=== PATIENT | female | born 1965 | race Caucasian/White ===

== ENCOUNTER 2021-09-11 12:52 | Outpatient (CLI) | payer BC, SELFPAY ==
--- NOTE | 2021-09-11 13:15 | CRLHL7_ITS ---
For Patients: As a result of the Century Cures Act, medical imaging exams and procedure reports are released immediately into your electronic medical record. You may view this report before your referring provider. If you have questions, please contact your health care provider. INDICATION: 56 year-old female. Remote history of Hodgkin disease diagnosed in 1978. Subsequent splenectomy and mantle radiation therapy. Left-sided breast cancer in 2000 with subsequent recurrence in the left axilla in 2009 and a more recent recurrence in 2020. Prior left-sided mastectomy and sentinel lymph node biopsy and prophylactic right-sided mastectomy in 2000. Adjuvant chemotherapy and tamoxifen therapy. Left axillary tony dissection in 2009. Chemotherapy. Prior history of a well differentiated thyroid carcinoma status post thyroidectomy. Diffuse large B-cell lymphoma diagnosed March 2017 with chemotherapy March 2017 through July 2017 currently on surveillance. Recent core biopsy of a right axillary lymph node demonstrated metastatic carcinoma consistent with a breast primary. More recent history of proton therapy February 10, 2021 through March 18, 2021. Chest wall reconstruction April 22, 2021. Hyperbaric oxygen therapy for wound healing. Follow-up. Restaging. TECHNIQUE: 11.55 mCi 18 FDG (18 xetdcn-bt-oqs-glucose) injected intravenously. Imaging performed from the mid forehead to the mid thighs [address] performed for anatomic correlation and attenuation correction. Pre scan glucose: 80 mg/dL. COMPARISON: PET/CT scan December 05, 2020. Correlation is made with a more recent chest CT July 22, 2021. FINDINGS: Physiologic activity is identified in the brain, salivary glands, tongue, paralaryngeal soft tissues, myocardium, GI, and tract. The included intracranial structures and included soft tissues of the head, face, and neck are within normal limits. Mild asymmetric muscular activity posterior to the cervical spine right greater than left. No metabolically active cervical lymphadenopathy. Surgically absent thyroid gland. Within the chest, when compared to the prior PET scan there has been surgical removal of the breast implants/reconstruction. There is curvilinear and nodular activity within the anterior left chest wall surrounding an elliptically shaped fluid collection. For example a small nodular focus medially demonstrates an SUV max of nearly 7.0 and laterally a curvilinear focus demonstrates an SUV max of 7.2 and along the inferior margin likely within chest wall musculature is curvilinear activity with an SUV max of 6.1. All this activity may be post treatment in nature. Minor low level activity associate with the right anterior chest wall. No discrete metabolically active axillary, supraclavicular, internal mammary chain, or hilar/mediastinal lymphadenopathy. There is a new tiny left-sided pleural effusion with low level activity, SUV max 2.0, likely reactive potentially post treatment in nature. A previously identified metabolically active nodule within the posteromedial left upper lobe of the lung and right lower lobe of the lung are not evident today. The abdomen and pelvis are within normal limits. No abnormal activity within solid abdominal organs are lymph node groups. The soft tissues included thighs demonstrates muscular type activity about the greater trochanters. The included skeleton demonstrates mild muscular and/or arthritic type activity about the shoulders right greater than left. CT Findings: Surgically absent thyroid gland, breasts, and spleen. Interval removal of the breast reconstruction. Postsurgical changes anterior chest sebastian extending into the axillary spaces with a small seroma or hematoma in the right axillary space, measuring 1.8 x 3.0 cm. Elliptically shaped fluid collection anterior left chest wall. Tiny left-sided pleural effusion. Granulomatous changes within the right lung. No hydronephrosis. Vascular calcification within a normal caliber abdominal aorta. Degenerative disc disease particularly involving L4 and L5. IMPRESSION: 1. Curvilinear and nodular high-level activity left anterior chest wall surrounding an elliptically shaped seroma or hematoma, most likely related to interval therapy and prior surgery. Intermediate to low level activity associated the skin and subcutaneous soft tissues of each chest wall and also within the axillary spaces, again likely related to treated. 2. New tiny left-sided pleural effusion likely reactive. 3. Resolution of the 2 nodular foci of activity seen previously in the left upper lobe and right lower lobe. 4. No evidence for metastatic disease within the lymph node groups, the remaining solid abdominal organs or included skeleton. Dictated by Lavon Calderón MD @ 09/19/2021 9:07:59 AM (Electronically Signed)
== END 2021-09-11 12:53 | disposition home or self-care (01) ==
LOC: RAD 12:53
PROVIDERS: PCP Family Medicine; Visit Provider Internal Medicine Hematology & Oncology
DX: C50.412 Malignant neoplasm of upper-outer quadrant of left female breast (principal); J90 Pleural effusion, not elsewhere classified; R91.8 Other nonspecific abnormal finding of lung field
CPT/HCPCS: 78815; A9552

== ENCOUNTER 2021-10-01 07:44 | Outpatient (RCR) | payer BC, SELFPAY ==
--- NOTE | 2021-09-03 14:37 | URNOTE ---
Request received from [facility] for prior authorization of Prolia [id number]. Patient carries [employer] as primary insurance. Per [employer] no prior authorization is required for Prolia. Services are based on medical necesity.
[2021-10-01 08:08] LABS: Basophils Absolute Auto 0.06 K/uL (0.00-0.30); Basophils Percent Auto 0.7 % (0.0-3.0); Eosinophils Absolute Auto 0.26 K/uL (0.00-0.50); Hematocrit 39.6 % (33.0-51.0); Hemoglobin* 12.7 gm/dL (12.0-16.0); Immature Granulocytes Abs Auto 0.01 K/uL (0.00-0.30); Lymphocytes Absolute Auto 1.77 K/uL (0.90-2.90); Lymphocytes Percent Auto 20.3 % (20-44); Mean Corpuscular HGB Conc 32 gm/dL (32-36); Mean Corpuscular Hemoglobin 27 pg (26-34); Mean Corpuscular Volume 84 fL (80-100); Monocytes Percent Auto 10.3 % (0.0-11.0); Neutrophils Absolute Auto 5.74 K/uL (1.7-7.0); Neutrophils Percent Auto 65.6 % (42.0-72.0); Platelet Count* 577 K/uL (140-440); RDW Coefficient of Variation % 15.8 % (11.5-15.5); White Blood Count* 8.74 K/uL (4.50-11.00)
[2021-10-01 08:20] LABS: Albumin* 4.2 g/dL (3.3-5.0); Chloride* 101 mmol/L (96-114); Potassium* 4.5 mmol/L (3.6-5.1); Slide Review Reflex No; Sodium* 140 mmol/L (135-149)
[2021-10-01 08:22] LABS: Carbon Dioxide* 31 mmol/L (20-32); Est. Creatinine Clearance* 65.65; Estimated Glomerular Filt Rate 66 ml/min
[2021-10-01 08:23] LABS: Alanine Aminotransferase* 32 U/L (4-35); Alkaline Phosphatase* 157 U/L (40-150); Aspartate Amino Transferase* 34 U/L (12-35); Bilirubin Total* 0.5 mg/dL (0.1-1.5); Blood Urea Nitrogen* 30 mg/dL (7-30); Calcium* 9.6 mg/dL (8.4-10.6); Glucose* 112 mg/dL (60-115); Total Protein* 8.2 g/dL (6.0-8.3)
== END 2021-10-05 23:59 | disposition home or self-care (01) ==
LOC: CCIC 07:44
PROVIDERS: PCP Family Medicine; Visit Provider Internal Medicine Hematology & Oncology
DX: C50.911 Malignant neoplasm of unspecified site of right female breast (principal); C83.33 Diffuse large B-cell lymphoma, intra-abdominal lymph nodes
CPT/HCPCS: 36415; 80053; 85025

== ENCOUNTER 2022-02-12 13:30 | Outpatient (CLI) | payer BC, SELFPAY ==
--- NOTE | 2022-02-12 14:00 | CRLHL7_ITS ---
For Patients: As a result of the Century Cures Act, medical imaging exams and procedure reports are released immediately into your electronic medical record. You may view this report before your referring provider. If you have questions, please contact your health care provider. INDICATION: History of left-sided breast cancer diagnosed in 2000. Patient with recurrence in the left axilla 2009 and more recently 2020. History of bilateral mastectomy. Patient with prior chemotherapy and tamoxifen therapy. Study is being performed for restaging. Remote history of prior lymphoma status post splenectomy. Patient with prior thyroidectomy. TECHNIQUE: Patient received 9.6 millicuries of 18 FDG (18 fluorodeoxyglucose) intravenously. PET-CT imaging has been performed from the mid skull to mid thigh level at [address] images have been obtained for attenuation correction and localization only. Blood glucose level: 83 mg/dL. COMPARISON: PET-CT dated 09/11/2021 PET-CT dated 12/05/2020. FINDINGS: No abnormal uptake is identified in the mediastinum or hilar regions. Patient status post thyroidectomy. Small left residual pleural fluid collection is identified which is relatively stable without significant abnormal pleural activity. The lungs demonstrate no significant abnormal uptake. There is a persistent linear density in the inferior right middle lobe extending toward the pleural without abnormal uptake. This is stable and likely benign. Small associated calcification is noted. There is mild peripheral anterior apical scarring identified and unchanged. Again identified are postsurgical changes from removal of bilateral breast implants. There is chest wall and intercostal activity which is slightly greater on the left than the right. This overall has diminished especially on the left compared to the prior study. There is prominent muscular activity in the upper chest anteriorly. There are postsurgical change of the bilateral axilla without focal hypermetabolic lymph nodes. The neck demonstrates salivary and oropharyngeal activity, felt to be physiologic. No suspicious hypermetabolic lymph nodes noted. Skullbase is unremarkable. The liver demonstrates no abnormal uptake. The spleen is surgically absent. The pancreas and bilateral adrenal glands demonstrate no abnormal uptake. The retrocrural region and retroperitoneum demonstrate no abnormal uptake. The iliac tony chain and groin demonstrate no significant abnormal uptake. There is physiologic bowel activity demonstrated. No suspicious skeletal lesion noted. Heterogeneous marrow is noted and stable. Sclerosis of the lower lumbar spine is present and stable without significant abnormal uptake. IMPRESSION: 1. Overall relatively stable appearing PET-CT scan from the study of 09/11/2021. 2. Postsurgical change from movable bilateral breast implants noted. There has been further decrease in uptake of radiotracer especially on the left. There is slight increase in intercostal activity on today`s exam bilaterally, likely benign. 3. No suspicious hypermetabolic regional lymph nodes are seen. 4. No evidence for metastatic disease to the abdomen or pelvis. 5. Other PET-CT findings as detailed above. Dictated by Daniel Paz MD @ 02/18/2022 8:36:35 AM (Electronically Signed)
== END 2022-02-12 13:31 | disposition home or self-care (01) ==
LOC: RAD 13:30
PROVIDERS: PCP Family Medicine; Visit Provider Internal Medicine Hematology & Oncology
DX: C50.412 Malignant neoplasm of upper-outer quadrant of left female breast (principal)
CPT/HCPCS: 78815; A9552

== ENCOUNTER 2022-03-24 07:45 | Outpatient (RCR) | payer BC, SELFPAY ==
[2021-10-08 08:10] LABS: Basophils Absolute Auto 0.08 K/uL (0.00-0.30); Basophils Percent Auto 1.2 % (0.0-3.0); Eosinophils Absolute Auto 0.28 K/uL (0.00-0.50); Eosinophils Percent Auto 4.3 % (0.0-7.0); Hematocrit 40.9 % (33.0-51.0); Immature Granulocytes Abs Auto 0.01 K/uL (0.00-0.30); Lymphocytes Absolute Auto 1.49 K/uL (0.90-2.90); Lymphocytes Percent Auto 22.7 % (20-44); Mean Corpuscular HGB Conc 32 gm/dL (32-36); Mean Corpuscular Hemoglobin 27 pg (26-34); Mean Corpuscular Volume 85 fL (80-100); Monocytes Percent Auto 5.9 % (0.0-11.0); Neutrophils Absolute Auto 4.32 K/uL (1.7-7.0); Neutrophils Percent Auto 65.7 % (42.0-72.0); Platelet Count* 527 K/uL (140-440); RDW Coefficient of Variation % 15.7 % (11.5-15.5); Red Blood Count 4.83 m/uL (4.00-5.20); White Blood Count* 6.57 K/uL (4.50-11.00)
[2021-10-08 08:13] LABS: Slide Review Reflex No
[2021-10-08 08:30] VITALS: BP 82/52; PULSE 90; RESP 18; TEMP 36.4; O2SAT 99
[2021-10-08 08:32] VITALS: BP 96/59; PULSE 91
[2021-10-08 08:34] LABS: Albumin* 4.6 g/dL (3.3-5.0); Chloride* 100 mmol/L (96-114)
[2021-10-08 08:35] LABS: Potassium* 3.8 mmol/L (3.6-5.1); Sodium* 139 mmol/L (135-149)
[2021-10-08 08:37] LABS: Alanine Aminotransferase* 34 U/L (4-35); Alkaline Phosphatase* 136 U/L (40-150); Aspartate Amino Transferase* 34 U/L (12-35); Blood Urea Nitrogen* 41 mg/dL (7-30); Carbon Dioxide* 28 mmol/L (20-32); Creatinine* 1.6 mg/dL (0.5-1.5); Estimated Glomerular Filt Rate 38 ml/min
[2021-10-08 08:38] LABS: Calcium* 10.3 mg/dL (8.4-10.6); Glucose* 52 mg/dL (60-115)
[2021-10-08] MEDS: 0.9 % SODIUM CHLORIDE 1000 ml 1,000 ML IV (09:11)
[2021-10-08 10:36] VITALS: BP 129/76; PULSE 70
--- NOTE | 2021-10-08 12:34 | ONC.NURNOTE ---
Blood sugar 56 after IVF and one glass of orange juice. Pt asymptomatic. Notified Eliana Guevara APRN and pt okay to discharge home after another orange juice with sugar. Pt expecting a call back from her primary care and she will update Dr. Merino with blood sugars as well as blood pressure.
[2021-10-15 08:00] VITALS: BP 151/81; PULSE 103; RESP 14; TEMP 36.1; O2SAT 100
[2021-10-15 08:05] VITALS: BP 127/78; PULSE 114
[2021-10-15 08:13] LABS: Basophils Absolute Auto 0.06 K/uL (0.00-0.30); Eosinophils Percent Auto 3.3 % (0.0-7.0); Hematocrit 38.3 % (33.0-51.0); Hemoglobin* 12.3 gm/dL (12.0-16.0); Immature Granulocytes Abs Auto 0.01 K/uL (0.00-0.30); Lymphocytes Absolute Auto 1.66 K/uL (0.90-2.90); Lymphocytes Percent Auto 27.1 % (20-44); Mean Corpuscular HGB Conc 32 gm/dL (32-36); Mean Corpuscular Hemoglobin 27 pg (26-34); Mean Corpuscular Volume 84 fL (80-100); Monocytes Percent Auto 8.2 % (0.0-11.0); Neutrophils Percent Auto 60.2 % (42.0-72.0); Platelet Count* 385 K/uL (140-440); RDW Coefficient of Variation % 15.8 % (11.5-15.5); Red Blood Count 4.55 m/uL (4.00-5.20); White Blood Count* 6.13 K/uL (4.50-11.00)
[2021-10-15 08:16] LABS: Slide Review Reflex No
[2021-10-15 08:25] LABS: Albumin* 4.3 g/dL (3.3-5.0); Chloride* 100 mmol/L (96-114)
[2021-10-15 08:26] LABS: Potassium* 4.1 mmol/L (3.6-5.1); Sodium* 138 mmol/L (135-149)
[2021-10-15 08:28] LABS: Aspartate Amino Transferase* 31 U/L (12-35); Bilirubin Total* 0.7 mg/dL (0.1-1.5); Carbon Dioxide* 29 mmol/L (20-32); Creatinine* 1.2 mg/dL (0.5-1.5); Estimated Glomerular Filt Rate 53 ml/min
[2021-10-15 08:29] LABS: Alanine Aminotransferase* 26 U/L (4-35); Alkaline Phosphatase* 129 U/L (40-150); Blood Urea Nitrogen* 19 mg/dL (7-30); Calcium* 9.6 mg/dL (8.4-10.6); Glucose* 75 mg/dL (60-115); Total Protein* 8.1 g/dL (6.0-8.3)
--- NOTE | 2021-10-15 09:07 | ONC.NURNOTE ---
Patient states is feeling much better then last week. denies diarrhea or dizziness. states taking in enough po and voiding well. states seeing DR. Merino this am re; her blood pressure. copy of labs and orthostatics sent with pt. pt states bp was low and was taken off metoprolol 50mg bid.
[2021-10-29 08:10] LABS: Basophils Absolute Auto 0.09 K/uL (0.00-0.30); Basophils Percent Auto 1.8 % (0.0-3.0); Eosinophils Absolute Auto 0.14 K/uL (0.00-0.50); Eosinophils Percent Auto 2.8 % (0.0-7.0); Hematocrit 37.4 % (33.0-51.0); Immature Granulocytes Abs Auto 0.01 K/uL (0.00-0.30); Lymphocytes Absolute Auto 1.59 K/uL (0.90-2.90); Lymphocytes Percent Auto 32.3 % (20-44); Mean Corpuscular HGB Conc 32 gm/dL (32-36); Mean Corpuscular Hemoglobin 28 pg (26-34); Mean Corpuscular Volume 86 fL (80-100); Monocytes Percent Auto 9.7 % (0.0-11.0); Neutrophils Absolute Auto 2.62 K/uL (1.7-7.0); Neutrophils Percent Auto 53.2 % (42.0-72.0); Platelet Count* 536 K/uL (140-440); RDW Coefficient of Variation % 16.9 % (11.5-15.5); Red Blood Count 4.37 m/uL (4.00-5.20); White Blood Count* 4.93 K/uL (4.50-11.00)
[2021-10-29 08:12] LABS: Slide Review Reflex No
[2021-10-29 08:30] LABS: Albumin* 4.1 g/dL (3.3-5.0); Chloride* 99 mmol/L (96-114)
[2021-10-29 08:31] LABS: Potassium* 4.5 mmol/L (3.6-5.1); Sodium* 138 mmol/L (135-149)
[2021-10-29 08:33] LABS: Alanine Aminotransferase* 27 U/L (4-35); Alkaline Phosphatase* 139 U/L (40-150); Aspartate Amino Transferase* 31 U/L (12-35); Bilirubin Total* 0.5 mg/dL (0.1-1.5); Blood Urea Nitrogen* 28 mg/dL (7-30); Carbon Dioxide* 32 mmol/L (20-32); Creatinine* 1.3 mg/dL (0.5-1.5); Estimated Glomerular Filt Rate 48 ml/min; Glucose* 63 mg/dL (60-115); Total Protein* 7.9 g/dL (6.0-8.3)
[2021-10-29 08:34] LABS: Calcium* 9.4 mg/dL (8.4-10.6)
[2021-11-12 08:08] LABS: Basophils Absolute Auto 0.15 K/uL (0.00-0.30); Basophils Percent Auto 2.3 % (0.0-3.0); Eosinophils Percent Auto 1.5 % (0.0-7.0); Hematocrit 40.4 % (33.0-51.0); Hemoglobin* 12.7 gm/dL (12.0-16.0); Immature Granulocytes Abs Auto 0.01 K/uL (0.00-0.30); Lymphocytes Absolute Auto 1.74 K/uL (0.90-2.90); Lymphocytes Percent Auto 26.4 % (20-44); Mean Corpuscular HGB Conc 31 gm/dL (32-36); Mean Corpuscular Hemoglobin 28 pg (26-34); Mean Corpuscular Volume 88 fL (80-100); Monocytes Percent Auto 7.7 % (0.0-11.0); Neutrophils Absolute Auto 4.09 K/uL (1.7-7.0); Neutrophils Percent Auto 61.9 % (42.0-72.0); Platelet Count* 505 K/uL (140-440); RDW Coefficient of Variation % 17.8 % (11.5-15.5); Red Blood Count 4.61 m/uL (4.00-5.20)
[2021-11-12 08:20] LABS: Slide Review Reflex No
[2021-11-12 08:23] LABS: Albumin* 4.4 g/dL (3.3-5.0); Chloride* 101 mmol/L (96-114); Potassium* 3.9 mmol/L (3.6-5.1); Sodium* 141 mmol/L (135-149)
[2021-11-12 08:25] LABS: Bilirubin Total* 0.7 mg/dL (0.1-1.5); Creatinine* 1.3 mg/dL (0.5-1.5); Estimated Glomerular Filt Rate 48 ml/min
[2021-11-12 08:26] LABS: Alanine Aminotransferase* 25 U/L (4-35); Alkaline Phosphatase* 141 U/L (40-150); Aspartate Amino Transferase* 29 U/L (12-35); Blood Urea Nitrogen* 24 mg/dL (7-30); Calcium* 9.5 mg/dL (8.4-10.6); Carbon Dioxide* 29 mmol/L (20-32); Glucose* 63 mg/dL (60-115); Total Protein* 8.4 g/dL (6.0-8.3)
[2021-11-26 08:17] LABS: Basophils Absolute Auto 0.12 K/uL (0.00-0.30); Basophils Percent Auto 2.1 % (0.0-3.0); Eosinophils Absolute Auto 0.12 K/uL (0.00-0.50); Eosinophils Percent Auto 2.1 % (0.0-7.0); Hematocrit 39.8 % (33.0-51.0); Hemoglobin* 12.9 gm/dL (12.0-16.0); Immature Granulocytes Abs Auto 0.01 K/uL (0.00-0.30); Lymphocytes Absolute Auto 1.59 K/uL (0.90-2.90); Lymphocytes Percent Auto 27.5 % (20-44); Mean Corpuscular HGB Conc 32 gm/dL (32-36); Mean Corpuscular Hemoglobin 29 pg (26-34); Mean Corpuscular Volume 88 fL (80-100); Monocytes Percent Auto 8.8 % (0.0-11.0); Neutrophils Absolute Auto 3.44 K/uL (1.7-7.0); Neutrophils Percent Auto 59.3 % (42.0-72.0); Platelet Count* 383 K/uL (140-440); RDW Coefficient of Variation % 18.4 % (11.5-15.5); White Blood Count* 5.79 K/uL (4.50-11.00)
[2021-11-26 08:18] LABS: Slide Review Reflex No
[2021-11-26 08:21] LABS: Albumin* 4.5 g/dL (3.3-5.0); Chloride* 98 mmol/L (96-114); Potassium* 4.1 mmol/L (3.6-5.1); Sodium* 140 mmol/L (135-149)
[2021-11-26 08:23] LABS: Bilirubin Total* 0.8 mg/dL (0.1-1.5); Carbon Dioxide* 31 mmol/L (20-32); Creatinine* 1.3 mg/dL (0.5-1.5); Estimated Glomerular Filt Rate 48 ml/min
[2021-11-26 08:24] LABS: Alanine Aminotransferase* 25 U/L (4-35); Alkaline Phosphatase* 149 U/L (40-150); Aspartate Amino Transferase* 40 U/L (12-35); Blood Urea Nitrogen* 29 mg/dL (7-30); Calcium* 9.9 mg/dL (8.4-10.6); Glucose* 72 mg/dL (60-115); Total Protein* 8.4 g/dL (6.0-8.3)
[2021-12-24 08:20] LABS: Basophils Absolute Auto 0.14 K/uL (0.00-0.30); Basophils Percent Auto 1.6 % (0.0-3.0); Eosinophils Absolute Auto 0.18 K/uL (0.00-0.50); Eosinophils Percent Auto 2.1 % (0.0-7.0); Hematocrit 36.4 % (33.0-51.0); Hemoglobin* 11.7 gm/dL (12.0-16.0); Immature Granulocytes Abs Auto 0.01 K/uL (0.00-0.30); Lymphocytes Absolute Auto 2.05 K/uL (0.90-2.90); Lymphocytes Percent Auto 23.4 % (20-44); Mean Corpuscular HGB Conc 32 gm/dL (32-36); Mean Corpuscular Hemoglobin 29 pg (26-34); Mean Corpuscular Volume 91 fL (80-100); Monocytes Percent Auto 8.7 % (0.0-11.0); Neutrophils Absolute Auto 5.63 K/uL (1.7-7.0); Neutrophils Percent Auto 64.1 % (42.0-72.0); Platelet Count* 488 K/uL (140-440); RDW Coefficient of Variation % 19.1 % (11.5-15.5); Red Blood Count 4.01 m/uL (4.00-5.20); White Blood Count* 8.77 K/uL (4.50-11.00)
[2021-12-24 08:30] LABS: Slide Review Reflex No
[2021-12-24 08:37] LABS: Albumin* 4.3 g/dL (3.3-5.0)
[2021-12-24 08:38] LABS: Chloride* 99 mmol/L (96-114); Potassium* 4.3 mmol/L (3.6-5.1); Sodium* 138 mmol/L (135-149)
[2021-12-24 08:40] LABS: Aspartate Amino Transferase* 36 U/L (12-35); Bilirubin Total* 0.9 mg/dL (0.1-1.5); Carbon Dioxide* 31 mmol/L (20-32); Creatinine* 1.2 mg/dL (0.5-1.5); Estimated Glomerular Filt Rate 53 ml/min; Total Protein* 7.9 g/dL (6.0-8.3)
[2021-12-24 08:41] LABS: Alanine Aminotransferase* 29 U/L (4-35); Alkaline Phosphatase* 135 U/L (40-150); Blood Urea Nitrogen* 26 mg/dL (7-30); Calcium* 9.9 mg/dL (8.4-10.6); Glucose* 86 mg/dL (60-115)
--- NOTE | 2022-01-02 10:27 | A.ONCPRONO_ITS ---
[facility] Provider Note Clinic Note Narrative: Refill request: letrozole Ms. Cox follows at our clinic with Dr. Mikayla Han, [facility], for medical management of recurrent hormone receptor positive breast cancer and B Cell Lymphoma. She is next due to be seen in clinic in 01/27. She has been tolerating therapy per office notes. Script refilled to pharmacy on file.
[2022-01-21 08:42] LABS: Basophils Absolute Auto 0.12 K/uL (0.00-0.30); Basophils Percent Auto 1.1 % (0.0-3.0); Eosinophils Absolute Auto 0.13 K/uL (0.00-0.50); Eosinophils Percent Auto 1.2 % (0.0-7.0); Hemoglobin* 11.7 gm/dL (12.0-16.0); Immature Granulocytes Abs Auto 0.02 K/uL (0.00-0.30); Immature Granulocytes Pct Auto 0.2 %; Lymphocytes Percent Auto 17.8 % (20-44); Mean Corpuscular HGB Conc 32 gm/dL (32-36); Mean Corpuscular Hemoglobin 31 pg (26-34); Mean Corpuscular Volume 96 fL (80-100); Monocytes Percent Auto 8.8 % (0.0-11.0); Neutrophils Absolute Auto 7.72 K/uL (1.7-7.0); Neutrophils Percent Auto 70.9 % (42.0-72.0); Platelet Count* 424 K/uL (140-440); RDW Coefficient of Variation % 17.1 % (11.5-15.5); Red Blood Count 3.84 m/uL (4.00-5.20); White Blood Count* 10.89 K/uL (4.50-11.00)
[2022-01-21 08:48] LABS: Slide Review Reflex No
[2022-01-21 08:57] LABS: Albumin* 4.3 g/dL (3.3-5.0); Chloride* 104 mmol/L (96-114)
[2022-01-21 08:58] LABS: Potassium* 4.2 mmol/L (3.6-5.1); Sodium* 141 mmol/L (135-149)
[2022-01-21 09:00] LABS: Alkaline Phosphatase* 127 U/L (40-150); Aspartate Amino Transferase* 34 U/L (12-35); Bilirubin Total* 0.9 mg/dL (0.1-1.5); Blood Urea Nitrogen* 22 mg/dL (7-30); Carbon Dioxide* 26 mmol/L (20-32); Creatinine* 1.1 mg/dL (0.5-1.5); Estimated Glomerular Filt Rate 59 ml/min; Total Protein* 7.8 g/dL (6.0-8.3)
[2022-01-21 09:01] LABS: Alanine Aminotransferase* 29 U/L (4-35); Calcium* 9.4 mg/dL (8.4-10.6); Glucose* 73 mg/dL (60-115)
[2022-01-21] MEDS: DENOSUMAB 60 MG/ML SYRINGE SUBCUT (09:23)
--- NOTE | 2022-01-21 11:39 | PC.NURSE ---
Accompanied patient to her oncology visit. Teaching completed for Prolia and consent signed. Patient scheduled for PET/CT 02/[address] Han 02/26 to review. Copy of todays note and labs faxed to Dr. Merino, patients PCP, at patients request. Patient encouraged to call with any questions or concerns.
[2022-02-24 09:40] LABS: Albumin* 4.3 g/dL (3.3-5.0); Chloride* 102 mmol/L (96-114); Potassium* 4.6 mmol/L (3.6-5.1); Sodium* 138 mmol/L (135-149)
[2022-02-24 09:42] LABS: Bilirubin Total* 0.8 mg/dL (0.1-1.5); Carbon Dioxide* 29 mmol/L (20-32); Creatinine* 0.9 mg/dL (0.5-1.5); Est. Creatinine Clearance* 75.48; Estimated Glomerular Filt Rate 75 ml/min
[2022-02-24 09:43] LABS: Alanine Aminotransferase* 27 U/L (4-35); Alkaline Phosphatase* 134 U/L (40-150); Aspartate Amino Transferase* 38 U/L (12-35); Blood Urea Nitrogen* 17 mg/dL (7-30); Calcium* 9.1 mg/dL (8.4-10.6); Glucose* 75 mg/dL (60-115); Total Protein* 7.8 g/dL (6.0-8.3)
[2022-02-24 09:53] LABS: Basophils Absolute Auto 0.13 K/uL (0.00-0.30); Basophils Percent Auto 1.9 % (0.0-3.0); Eosinophils Absolute Auto 0.12 K/uL (0.00-0.50); Eosinophils Percent Auto 1.8 % (0.0-7.0); Hematocrit 38.3 % (33.0-51.0); Hemoglobin* 12.4 gm/dL (12.0-16.0); Immature Granulocytes Abs Auto 0.01 K/uL (0.00-0.30); Immature Granulocytes Pct Auto 0.1 %; Lymphocytes Absolute Auto 2.44 K/uL (0.90-2.90); Lymphocytes Percent Auto 36.5 % (20-44); Mean Corpuscular HGB Conc 32 gm/dL (32-36); Mean Corpuscular Hemoglobin 32 pg (26-34); Mean Corpuscular Volume 98 fL (80-100); Monocytes Percent Auto 11.7 % (0.0-11.0); Neutrophils Absolute Auto 3.21 K/uL (1.7-7.0); Platelet Count* 417 K/uL (140-440); RDW Coefficient of Variation % 14.4 % (11.5-15.5); Slide Review Reflex No; White Blood Count* 6.69 K/uL (4.50-11.00)
[2022-03-24 07:58] LABS: Basophils Absolute Auto 0.16 K/uL (0.00-0.30); Eosinophils Absolute Auto 0.14 K/uL (0.00-0.50); Eosinophils Percent Auto 1.7 % (0.0-7.0); Hematocrit 39.3 % (33.0-51.0); Hemoglobin* 12.6 gm/dL (12.0-16.0); Immature Granulocytes Abs Auto 0.01 K/uL (0.00-0.30); Immature Granulocytes Pct Auto 0.1 %; Lymphocytes Absolute Auto 2.48 K/uL (0.90-2.90); Lymphocytes Percent Auto 30.5 % (20-44); Mean Corpuscular HGB Conc 32 gm/dL (32-36); Mean Corpuscular Hemoglobin 31 pg (26-34); Mean Corpuscular Volume 98 fL (80-100); Monocytes Percent Auto 8.4 % (0.0-11.0); Neutrophils Absolute Auto 4.65 K/uL (1.7-7.0); Neutrophils Percent Auto 57.3 % (42.0-72.0); Platelet Count* 453 K/uL (140-440); RDW Coefficient of Variation % 13.9 % (11.5-15.5); Red Blood Count 4.01 m/uL (4.00-5.20); White Blood Count* 8.12 K/uL (4.50-11.00)
[2022-03-24 07:59] LABS: Slide Review Reflex No
[2022-03-24 08:12] LABS: Albumin* 4.2 g/dL (3.3-5.0); Chloride* 104 mmol/L (96-114); Sodium* 138 mmol/L (135-149)
[2022-03-24 08:13] LABS: Potassium* 4.9 mmol/L (3.6-5.1)
[2022-03-24 08:15] LABS: Alkaline Phosphatase* 128 U/L (40-150); Aspartate Amino Transferase* 34 U/L (12-35); Bilirubin Total* 0.8 mg/dL (0.1-1.5); Blood Urea Nitrogen* 29 mg/dL (7-30); Carbon Dioxide* 29 mmol/L (20-32); Creatinine* 1.2 mg/dL (0.5-1.5); Est. Creatinine Clearance* 56.61; Estimated Glomerular Filt Rate 53 ml/min; Glucose* 84 mg/dL (60-115); Total Protein* 7.8 g/dL (6.0-8.3)
[2022-03-24 08:16] LABS: Alanine Aminotransferase* 30 U/L (4-35)
--- NOTE | 2022-03-24 14:53 | ONC.NURNOTE ---
Called patient with her lab results. All WNL. Patient to continue Verzenio 150 mg daily and recheck labs in one month. Patient verbalizes understanding of plan.
== END 2022-04-06 23:59 | disposition home or self-care (01) ==
LOC: CCIC 07:45
PROVIDERS: PCP Family Medicine; Referring Provider Family Medicine; Visit Provider Internal Medicine Hematology & Oncology
DX: C50.911 Malignant neoplasm of unspecified site of right female breast (principal); Z17.0 Estrogen receptor positive status [ER+]; C83.30 Diffuse large B-cell lymphoma, unspecified site
CPT/HCPCS: 36415; 80053; 85025; 96360; 96372; 99212; 99213; 99214; 99215; J0897; J7030

== ENCOUNTER 2022-04-21 07:30 | Outpatient (RCR) | payer BC, SELFPAY ==
--- NOTE | 2021-10-17 14:57 | ONC.NURNOTE ---
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 Pharmacy staff have contacted pt today to set up delivery.
== END 2022-04-21 09:07 | disposition home or self-care (01) ==
PROVIDERS: PCP Family Medicine; Visit Provider Nurse Practitioner Family
DX: I89.0 Lymphedema, not elsewhere classified (principal); Z51.89 Encounter for other specified aftercare
CPT/HCPCS: 97110; 97140; 97530

== ENCOUNTER 2022-06-04 12:25 | Outpatient (CLI) | payer BC, SELFPAY ==
--- NOTE | 2022-06-04 13:15 | CRLHL7_ITS ---
For Patients: As a result of the Century Cures Act, medical imaging exams and procedure reports are released immediately into your electronic medical record. You may view this report before your referring provider. If you have questions, please contact your health care provider. INDICATION: 56 year-old female. Remote history of Hodgkin`s disease diagnosed in 1978. Subsequent splenectomy and mantle radiation therapy. Subsequent left-sided breast cancer in 2000 with a recurrence in the left axilla in 2009 and a more recent recurrence in 2020. Prior left-sided mastectomy and sentinel lymph node biopsy. Prophylactic right-sided mastectomy in 2000. Adjuvant chemotherapy and tamoxifen therapy. Chest wall reconstruction April 22, 2021. Hyperbaric oxygen therapy for wound healing. Prior history of a well differentiated thyroid carcinoma status post thyroidectomy. Diffuse large B-cell lymphoma diagnosed in March 2017 with chemotherapy March 2017 through July 2017. Currently on surveillance for this. Follow-up. Restaging. TECHNIQUE: 12.22 mCi 18 FDG (18 wwvjfl-dt-lny-glucose) injected intravenously. Imaging performed from the mid forehead to the mid thighs [address] performed for anatomic correlation and attenuation correction. Pre scan glucose: 70 mg/dL. COMPARISON: PET/CT scan February 12, 2022. FINDINGS: Physiologic activity is identified in the brain, salivary glands, tongue, paralaryngeal soft tissues, myocardium, GI, and tract. Focal activity right antecubital fossa is related to the radiotracer injection site. The included intracranial structures, included soft tissues of the head, face, and neck are within normal limits. Surgically absent thyroid gland. Benign muscular type activity in the low right neck extending into the upper right hemithorax. Within the chest there is persistent although clearly decreased activity within the soft tissues/musculature of the anterior chest sebastian left greater than right extending into the axillary spaces likely postsurgical or post treatment in nature. By history the patient had breast implants and subsequent removal. No focal increased metabolic activity within either lung. There is a persistent linear and nodular density within the inferior right middle lobe without increased metabolic activity. This should be benign. No abnormal activity within hilar or mediastinal lymph nodes. No abnormal activity within axillary or supraclavicular lymph nodes. The abdomen and pelvis are within normal limits. Both inguinal regions and soft tissues of the included thighs are within normal limits. The included skeleton is negative for metabolically active metastatic disease. There is sclerosis within the lower lumbar spine at L4-5 unchanged without increased metabolic activity. CT findings: Surgically absent thyroid gland, breasts, and spleen. Prior removal of the breast reconstruction/implants. Postsurgical changes anterior chest sebastian extending into the axillary spaces. No pleural or pericardial effusions. Granulomatous change right lung. Nodular and curvilinear stable benign-appearing process right middle lobe. No hydronephrosis. Vascular calcification in a normal caliber abdominal aorta. Postsurgical change right lower quadrant. Degenerative disc disease particularly at L4-5. IMPRESSION: 1. No evidence for recurrent or metastatic disease. No new areas of abnormal increased metabolic activity. 2. Continued clear interval decrease in the soft tissue /muscular type activity involving the anterior chest sebastian extending into the axillary spaces likely related to diminishing activity from prior surgery/therapy. Dictated by Lavon Calderón MD @ 06/11/2022 3:12:32 PM (Electronically Signed)
== END 2022-06-04 12:26 | disposition home or self-care (01) ==
LOC: RAD 12:26
PROVIDERS: PCP Family Medicine; Visit Provider Internal Medicine Hematology & Oncology
DX: C50.412 Malignant neoplasm of upper-outer quadrant of left female breast (principal)
CPT/HCPCS: 78815; A9552

== ENCOUNTER 2022-10-08 13:11 | Outpatient (CLI) | payer BC, SELFPAY ==
--- NOTE | 2022-10-08 14:00 | CRLHL7_ITS ---
For Patients: As a result of the 21st Century Cures Act, medical imaging exams and procedure reports are released immediately into your electronic medical record. You may view this report before your referring provider. If you have questions, please contact your health care provider. EXAM: PET-CT SKULL BASE TO THIGH CLINICAL INFORMATION: 57-yo female with recurrent metastatic breast cancer originally diagnosed in 2000 with recurrences in 2009 and 2020. Prior bilateral mastectomies, chemotherapy and radiation. Additional malignancies include well-differentiated thyroid cancer with prior thyroidectomy and diffuse large B-cell lymphoma (03/2017) with adjuvant chemotherapy, on surveillance. Remote history of Hodgkin`s disease in 1978 with splenectomy and mantle radiation. Patient is referred for further characterization. TECHNIQUE: Radiopharmaceutical: 14.07 mCi of 18F-FDG Intravenous injection site: RAC Uptake time: 70 minutes Blood glucose level at the time of injection: 71 mg/dL Field of view: Skull base to mid-thighs CT protocol: The low-dose, free-breathing, noncontrast CT performed as part of this study is designed for the purposes of attenuation correction and lesion localization, and it is neither sufficient, nor it should be substituted for diagnostic purposes. COMPARISON: PET CT 06/04/2022 and 02/12/2022 FINDINGS: Physiologic background liver standardized uptake value (SUV mean and SUV max) reported for comparison between PET studies: 3.1 and 4.0. Visualized head and neck: Physiologic uptake in the visualized portions of the brain. Prior thyroidectomy. Head and neck lymph nodes: No suspicious head/neck lymph nodes. Lungs: No new or suspicious tracer avid pulmonary nodules or abnormal uptake. Post radiation changes along the upper mediastinal margins and anterior aspect of each upper lobe. Similar tubular density in the lateral right middle lobe without suspicious uptake. Not significantly changed over the course of prior studies. Thoracic lymph nodes: Calcified mediastinal and hilar lymph nodes. Variable mild uptake within nonenlarged mediastinal lymph nodes at several stations. For example: Subcarinal tony uptake, SUV max 3.0. Previously 2.2. Other chest findings: Prior bilateral mastectomies and removal of prior breast implants. Bilateral postsurgical and post treatment changes of the chest, chest wall and axillary soft tissues with similar skin thickening more prominent over the right chest, bilateral subcutaneous stranding and generalized diffuse soft tissue and muscular uptake. For example: Left chest/axillary soft tissue uptake, SUV max 4.7. Previously 4.5. Right axillary soft tissue uptake, SUV max 3.4. Previously 3.5. Hepatobiliary: No suspicious tracer avid liver lesions. Spleen: Prior splenectomy. No abnormal left upper quadrant uptake. Pancreas: No abnormal uptake. Adrenals: No abnormal uptake. Kidneys and bladder: No abnormal uptake or obstruction. Limited bladder distention. Bowel and peritoneum: Gastric lumen is relatively decompressed. No suspicious small or large bowel uptake. Postoperative change right lower quadrant. Mild colonic diverticulosis. Pelvic organs: No abnormal uptake. Abdominopelvic lymph nodes: No new hypermetabolic abdominopelvic lymph nodes. Musculoskeletal, soft tissues, skin: No suspicious tracer avid osseous lesions. Nondisplaced fractures with uptake involving the left lateral 4th and 5th ribs. Degenerative type uptake within the shoulders, spine and hips. Severe disc degenerative change at L4-5. Other: Diffuse aortoiliac atherosclerotic vascular calcifications. IMPRESSION: 1. Generally stable overall appearance of the study demonstrating extensive postoperative and post treatment changes of the bilateral chest, chest wall and axillary soft tissues with residual moderate soft tissue and muscular uptake with skin thickening. No definite evidence locally recurrent tracer avid disease in the chest or axillary soft tissues. 2. No distant sites of tracer avid disease in the neck, solid organs of the upper abdomen or abdominal pelvic lymph nodes. 3. Chronic appearing post treatment changes in the lungs with no new hypermetabolic nodules or abnormal areas of uptake . 4. Nondisplaced fractures of the lateral 4th and 5th ribs without uptake. No suspicious tracer avid osseous lesions otherwise evident. 5. Other nonacute findings as detailed in the body report Dictated by Porfirio Pepper MD @ 10/13/2022 9:51:12 PM (Electronically Signed)
== END 2022-10-08 13:12 | disposition home or self-care (01) ==
PROVIDERS: PCP Family Medicine; Visit Provider Internal Medicine Hematology & Oncology
DX: C50.412 Malignant neoplasm of upper-outer quadrant of left female breast (principal)
CPT/HCPCS: 78815; A9552

== ENCOUNTER 2022-10-14 07:45 | Outpatient (RCR) | payer BC, SELFPAY ==
[2022-04-21 08:46] LABS: Basophils Percent Auto 1.4 % (0.0-3.0); Eosinophils Percent Auto 1.4 % (0.0-7.0); Hematocrit 37.1 % (33.0-51.0); Immature Granulocytes Abs Auto 0.01 K/uL (0.00-0.30); Immature Granulocytes Pct Auto 0.1 %; Lymphocytes Absolute Auto 2.24 K/uL (0.90-2.90); Lymphocytes Percent Auto 32.1 % (20-44); Mean Corpuscular HGB Conc 32 gm/dL (32-36); Mean Corpuscular Hemoglobin 31 pg (26-34); Mean Corpuscular Volume 97 fL (80-100); Monocytes Percent Auto 12.8 % (0.0-11.0); Neutrophils Absolute Auto 3.63 K/uL (1.7-7.0); Neutrophils Percent Auto 52.2 % (42.0-72.0); Platelet Count* 451 K/uL (140-440); RDW Coefficient of Variation % 13.8 % (11.5-15.5); Red Blood Count 3.84 m/uL (4.00-5.20); White Blood Count* 6.97 K/uL (4.50-11.00)
[2022-04-21 08:47] LABS: Slide Review Reflex No
[2022-04-21 08:58] LABS: Chloride* 102 mmol/L (96-114)
[2022-04-21 08:59] LABS: Potassium* 4.5 mmol/L (3.6-5.1); Sodium* 139 mmol/L (135-149)
[2022-04-21 09:01] LABS: Aspartate Amino Transferase* 40 U/L (12-35); Bilirubin Total* 0.8 mg/dL (0.1-1.5); Carbon Dioxide* 31 mmol/L (20-32); Estimated Glomerular Filt Rate 66 ml/min
[2022-04-21 09:02] LABS: Alanine Aminotransferase* 34 U/L (4-35); Albumin* 4.1 g/dL (3.3-5.0); Alkaline Phosphatase* 121 U/L (40-150); Blood Urea Nitrogen* 21 mg/dL (7-30); Calcium* 9.1 mg/dL (8.4-10.6); Glucose* 79 mg/dL (60-115); Total Protein* 7.7 g/dL (6.0-8.3)
--- NOTE | 2022-04-21 11:22 | ONC.NURNOTE ---
Call to patient with her lab results. Patient informed that they are WNL. Patient states she is feel well. She continues to need Imodium about every other day, which is unchanged from her last visit. Patient instructed to continue Verzenio 150 mg daily and recheck labs in 4 weeks. Patient verbalizes understanding.
[2022-05-19 07:59] LABS: Basophils Absolute Auto 0.13 K/uL (0.00-0.30); Eosinophils Absolute Auto 0.17 K/uL (0.00-0.50); Eosinophils Percent Auto 2.6 % (0.0-7.0); Hematocrit 38.6 % (33.0-51.0); Hemoglobin* 12.5 gm/dL (12.0-16.0); Immature Granulocytes Abs Auto 0.01 K/uL (0.00-0.30); Immature Granulocytes Pct Auto 0.2 %; Lymphocytes Absolute Auto 2.06 K/uL (0.90-2.90); Mean Corpuscular HGB Conc 32 gm/dL (32-36); Mean Corpuscular Hemoglobin 32 pg (26-34); Mean Corpuscular Volume 97 fL (80-100); Monocytes Percent Auto 10.1 % (0.0-11.0); Neutrophils Absolute Auto 3.61 K/uL (1.7-7.0); Neutrophils Percent Auto 54.1 % (42.0-72.0); Platelet Count* 436 K/uL (140-440); RDW Coefficient of Variation % 14.5 % (11.5-15.5); Red Blood Count 3.97 m/uL (4.00-5.20); White Blood Count* 6.65 K/uL (4.50-11.00)
[2022-05-19 08:03] LABS: Albumin* 4.2 g/dL (3.3-5.0); Chloride* 102 mmol/L (96-114)
[2022-05-19 08:04] LABS: Potassium* 4.4 mmol/L (3.6-5.1); Sodium* 138 mmol/L (135-149)
[2022-05-19 08:06] LABS: Aspartate Amino Transferase* 36 U/L (12-35); Bilirubin Total* 0.9 mg/dL (0.1-1.5); Carbon Dioxide* 30 mmol/L (20-32); Creatinine* 1.1 mg/dL (0.5-1.5); Estimated Glomerular Filt Rate 59 ml/min
[2022-05-19 08:07] LABS: Alanine Aminotransferase* 27 U/L (4-35); Alkaline Phosphatase* 104 U/L (40-150); Blood Urea Nitrogen* 24 mg/dL (7-30); Calcium* 9.3 mg/dL (8.4-10.6); Glucose* 77 mg/dL (60-115); Total Protein* 7.9 g/dL (6.0-8.3)
[2022-05-19 08:08] LABS: Slide Review Reflex No
--- NOTE | 2022-05-19 13:02 | ONC.NURNOTE ---
Call to patient to discuss labs. Patient informed that her labs are all within parameters to continue taking Verzenio. The only side effects that the patient reports are brittle nails and occasional loose stools managed with Imodium. Patient will continue taking Verzenio 150mg daily. Patient has PET/CT 06/04 and follow up with Dr. Han 06/18. Patient verbalizes understanding.
[2022-06-18 08:39] LABS: Basophils Absolute Auto 0.15 K/uL (0.00-0.30); Basophils Percent Auto 1.9 % (0.0-3.0); Eosinophils Absolute Auto 0.16 K/uL (0.00-0.50); Eosinophils Percent Auto 2.1 % (0.0-7.0); Hematocrit 38.9 % (33.0-51.0); Hemoglobin* 12.3 gm/dL (12.0-16.0); Immature Granulocytes Abs Auto 0.01 K/uL (0.00-0.30); Immature Granulocytes Pct Auto 0.1 %; Lymphocytes Absolute Auto 2.73 K/uL (0.90-2.90); Lymphocytes Percent Auto 35.5 % (20-44); Mean Corpuscular HGB Conc 32 gm/dL (32-36); Mean Corpuscular Hemoglobin 31 pg (26-34); Mean Corpuscular Volume 98 fL (80-100); Neutrophils Absolute Auto 3.88 K/uL (1.7-7.0); Neutrophils Percent Auto 50.4 % (42.0-72.0); Platelet Count* 428 K/uL (140-440); RDW Coefficient of Variation % 14.3 % (11.5-15.5); Red Blood Count 3.98 m/uL (4.00-5.20)
[2022-06-18 08:42] LABS: Slide Review Reflex No
[2022-06-18 08:50] LABS: Albumin* 4.3 g/dL (3.3-5.0); Chloride* 101 mmol/L (96-114)
[2022-06-18 08:51] LABS: Potassium* 4.2 mmol/L (3.6-5.1); Sodium* 138 mmol/L (135-149)
[2022-06-18 08:53] LABS: Aspartate Amino Transferase* 39 U/L (12-35); Bilirubin Total* 0.7 mg/dL (0.1-1.5); Carbon Dioxide* 31 mmol/L (20-32); Creatinine* 1.2 mg/dL (0.5-1.5); Estimated Glomerular Filt Rate 53 ml/min; Total Protein* 7.8 g/dL (6.0-8.3)
[2022-06-18 08:54] LABS: Alanine Aminotransferase* 28 U/L (4-35); Alkaline Phosphatase* 108 U/L (40-150); Blood Urea Nitrogen* 23 mg/dL (7-30); Calcium* 8.7 mg/dL (8.4-10.6); Glucose* 70 mg/dL (60-115)
[2022-07-21 08:21] LABS: Basophils Absolute Auto 0.13 K/uL (0.00-0.30); Basophils Percent Auto 1.9 % (0.0-3.0); Eosinophils Percent Auto 1.5 % (0.0-7.0); Hematocrit 36.4 % (33.0-51.0); Hemoglobin* 11.5 gm/dL (12.0-16.0); Immature Granulocytes Abs Auto 0.01 K/uL (0.00-0.30); Immature Granulocytes Pct Auto 0.1 %; Lymphocytes Absolute Auto 2.07 K/uL (0.90-2.90); Lymphocytes Percent Auto 30.4 % (20-44); Mean Corpuscular HGB Conc 32 gm/dL (32-36); Mean Corpuscular Hemoglobin 32 pg (26-34); Mean Corpuscular Volume 100 fL (80-100); Monocytes Percent Auto 9.5 % (0.0-11.0); Neutrophils Absolute Auto 3.86 K/uL (1.7-7.0); Neutrophils Percent Auto 56.6 % (42.0-72.0); Platelet Count* 421 K/uL (140-440); RDW Coefficient of Variation % 14.2 % (11.5-15.5); Red Blood Count 3.63 m/uL (4.00-5.20); White Blood Count* 6.82 K/uL (4.50-11.00)
[2022-07-21 08:26] LABS: Slide Review Reflex No
[2022-07-21 08:28] VITALS: BP 127/74; PULSE 92; RESP 18; TEMP 36.6; O2SAT 100
[2022-07-21 08:35] LABS: Albumin* 4.3 g/dL (3.3-5.0); Chloride* 99 mmol/L (96-114); Sodium* 139 mmol/L (135-149)
[2022-07-21 08:37] LABS: Creatinine* 1.3 mg/dL (0.5-1.5); Estimated Glomerular Filt Rate 48 ml/min
[2022-07-21 08:38] LABS: Alanine Aminotransferase* 27 U/L (4-35); Alkaline Phosphatase* 97 U/L (40-150); Aspartate Amino Transferase* 39 U/L (12-35); Bilirubin Total* 0.7 mg/dL (0.1-1.5); Blood Urea Nitrogen* 24 mg/dL (7-30); Calcium* 9.3 mg/dL (8.4-10.6); Carbon Dioxide* 29 mmol/L (20-32); Glucose* 83 mg/dL (60-115); Total Protein* 7.5 g/dL (6.0-8.3)
[2022-07-21] MEDS: DENOSUMAB 60 MG/ML SYRINGE SUBCUT (08:58)
--- NOTE | 2022-08-07 10:30 | ONC.NURNOTE ---
Carolyn called to say her Verzenio needs a pre auth. message left with breast care karen
[2022-08-20 08:09] LABS: Basophils Absolute Auto 0.14 K/uL (0.00-0.30); Basophils Percent Auto 1.9 % (0.0-3.0); Eosinophils Absolute Auto 0.14 K/uL (0.00-0.50); Eosinophils Percent Auto 1.9 % (0.0-7.0); Hematocrit 39.1 % (33.0-51.0); Hemoglobin* 12.6 gm/dL (12.0-16.0); Immature Granulocytes Abs Auto 0.01 K/uL (0.00-0.30); Immature Granulocytes Pct Auto 0.1 %; Lymphocytes Absolute Auto 2.39 K/uL (0.90-2.90); Lymphocytes Percent Auto 31.6 % (20-44); Mean Corpuscular HGB Conc 32 gm/dL (32-36); Mean Corpuscular Hemoglobin 32 pg (26-34); Mean Corpuscular Volume 99 fL (80-100); Monocytes Percent Auto 9.3 % (0.0-11.0); Neutrophils Absolute Auto 4.18 K/uL (1.7-7.0); Neutrophils Percent Auto 55.2 % (42.0-72.0); Platelet Count* 455 K/uL (140-440); RDW Coefficient of Variation % 14.1 % (11.5-15.5); Red Blood Count 3.94 m/uL (4.00-5.20); White Blood Count* 7.56 K/uL (4.50-11.00)
[2022-08-20 08:18] LABS: Slide Review Reflex No
[2022-08-20 08:29] LABS: Albumin* 4.4 g/dL (3.3-5.0); Chloride* 98 mmol/L (96-114)
[2022-08-20 08:30] LABS: Potassium* 4.3 mmol/L (3.6-5.1); Sodium* 140 mmol/L (135-149)
[2022-08-20 08:32] LABS: Bilirubin Total* 0.9 mg/dL (0.1-1.5); Carbon Dioxide* 31 mmol/L (20-32); Creatinine* 1.4 mg/dL (0.5-1.5); Estimated Glomerular Filt Rate 44 ml/min; Total Protein* 8.1 g/dL (6.0-8.3)
[2022-08-20 08:33] LABS: Alanine Aminotransferase* 29 U/L (4-35); Alkaline Phosphatase* 103 U/L (40-150); Aspartate Amino Transferase* 39 U/L (12-35); Blood Urea Nitrogen* 24 mg/dL (7-30); Calcium* 9.8 mg/dL (8.4-10.6); Glucose* 108 mg/dL (60-115)
[2022-09-17 08:14] LABS: Basophils Percent Auto 1.4 % (0.0-3.0); Eosinophils Absolute Auto 0.14 K/uL (0.00-0.50); Hematocrit 38.6 % (33.0-51.0); Hemoglobin* 12.4 gm/dL (12.0-16.0); Lymphocytes Absolute Auto 2.21 K/uL (0.90-2.90); Lymphocytes Percent Auto 31.7 % (20-44); Mean Corpuscular HGB Conc 32 gm/dL (32-36); Mean Corpuscular Hemoglobin 32 pg (26-34); Mean Corpuscular Volume 99 fL (80-100); Monocytes Percent Auto 8.3 % (0.0-11.0); Neutrophils Absolute Auto 3.95 K/uL (1.7-7.0); Neutrophils Percent Auto 56.6 % (42.0-72.0); Platelet Count* 418 K/uL (140-440); RDW Coefficient of Variation % 13.9 % (11.5-15.5); Red Blood Count 3.91 m/uL (4.00-5.20); White Blood Count* 6.98 K/uL (4.50-11.00)
[2022-09-17 08:20] LABS: Slide Review Reflex No
[2022-09-17 08:24] LABS: Albumin* 4.5 g/dL (3.3-5.0); Chloride* 99 mmol/L (96-114); Sodium* 142 mmol/L (135-149)
[2022-09-17 08:25] LABS: Potassium* 3.9 mmol/L (3.6-5.1)
[2022-09-17 08:27] LABS: Alanine Aminotransferase* 34 U/L (4-35); Alkaline Phosphatase* 102 U/L (40-150); Aspartate Amino Transferase* 46 U/L (12-35); Blood Urea Nitrogen* 32 mg/dL (7-30); Carbon Dioxide* 32 mmol/L (20-32); Creatinine* 1.3 mg/dL (0.5-1.5); Estimated Glomerular Filt Rate 48 ml/min; Total Protein* 8.1 g/dL (6.0-8.3)
[2022-09-17 08:28] LABS: Calcium* 9.7 mg/dL (8.4-10.6); Glucose* 80 mg/dL (60-115)
--- NOTE | 2022-09-21 08:38 | ONC.NURNOTE ---
Patient called office stating that she needs a refill on her verzinio. [facility] notified.
[2022-10-14 07:52] LABS: Basophils Absolute Auto 0.12 K/uL (0.00-0.30); Basophils Percent Auto 1.7 % (0.0-3.0); Eosinophils Absolute Auto 0.08 K/uL (0.00-0.50); Eosinophils Percent Auto 1.1 % (0.0-7.0); Hematocrit 38.3 % (33.0-51.0); Hemoglobin* 12.2 gm/dL (12.0-16.0); Immature Granulocytes Abs Auto 0.01 K/uL (0.00-0.30); Immature Granulocytes Pct Auto 0.1 %; Lymphocytes Absolute Auto 2.04 K/uL (0.90-2.90); Lymphocytes Percent Auto 28.1 % (20-44); Mean Corpuscular HGB Conc 32 gm/dL (32-36); Mean Corpuscular Hemoglobin 31 pg (26-34); Mean Corpuscular Volume 99 fL (80-100); Monocytes Percent Auto 8.4 % (0.0-11.0); Neutrophils Absolute Auto 4.39 K/uL (1.7-7.0); Neutrophils Percent Auto 60.6 % (42.0-72.0); Platelet Count* 449 K/uL (140-440); RDW Coefficient of Variation % 13.9 % (11.5-15.5); Red Blood Count 3.89 m/uL (4.00-5.20); White Blood Count* 7.25 K/uL (4.50-11.00)
[2022-10-14 07:53] LABS: Slide Review Reflex No
[2022-10-14 08:03] LABS: Albumin* 4.2 g/dL (3.3-5.0)
[2022-10-14 08:04] LABS: Chloride* 96 mmol/L (96-114); Potassium* 4.3 mmol/L (3.6-5.1); Sodium* 137 mmol/L (135-149)
[2022-10-14 08:06] LABS: Aspartate Amino Transferase* 42 U/L (12-35); Bilirubin Total* 0.8 mg/dL (0.1-1.5); Carbon Dioxide* 30 mmol/L (20-32); Creatinine* 1.2 mg/dL (0.5-1.5); Estimated Glomerular Filt Rate 53 ml/min
[2022-10-14 08:07] LABS: Alanine Aminotransferase* 30 U/L (4-35); Alkaline Phosphatase* 109 U/L (40-150); Blood Urea Nitrogen* 23 mg/dL (7-30); Calcium* 9.9 mg/dL (8.4-10.6); Glucose* 117 mg/dL (60-115); Total Protein* 7.7 g/dL (6.0-8.3)
== END 2022-10-18 23:59 | disposition home or self-care (01) ==
LOC: CCIC 07:45
PROVIDERS: Clinical Nurse Specialist; PCP Family Medicine; Referring Provider Family Medicine; Visit Provider Internal Medicine Hematology & Oncology
DX: C50.911 Malignant neoplasm of unspecified site of right female breast (principal); Z17.0 Estrogen receptor positive status [ER+]; C83.30 Diffuse large B-cell lymphoma, unspecified site; R19.7 Diarrhea, unspecified; N95.1 Menopausal and female climacteric states
CPT/HCPCS: 36415; 80053; 85025; 96372; 99211; 99212; 99213; 99214; 99215; J0897

== ENCOUNTER 2022-10-26 16:04 | Outpatient (CLI) | payer BC, SELFPAY | END 2022-10-26 16:05 | disposition home or self-care (01) | LOC: NFLDREF 16:04 | PROVIDERS: PCP Family Medicine; Visit Provider Internal Medicine | DX: Z00.00 Encounter for general adult medical examination without abnormal findings (principal); E03.9 Hypothyroidism, unspecified; I10 Essential (primary) hypertension | CPT/HCPCS: 84439; 84443 ==

== ENCOUNTER 2022-12-14 12:32 | Outpatient (CLI) | payer BC, SELFPAY ==
[2022-12-14] MEDS: PERFLUTREN LIPID MICROSPHERES 2 ML VIAL IV (14:32)
== END 2022-12-14 12:33 | disposition home or self-care (01) ==
PROVIDERS: PCP Internal Medicine; Visit Provider Internal Medicine
DX: R01.1 Cardiac murmur, unspecified (principal)
CPT/HCPCS: 93306; Q9957

== ENCOUNTER 2023-02-11 11:20 | Outpatient (CLI) | payer BC, SELFPAY ==
--- NOTE | 2023-02-11 13:15 | PE_ITS ---
[facility] [address] [facility] [address] Phone:?[phone] Fax:?[phone] Referring Physician Information: Mikayla Han M.D. [address] [facility] [address] Phone:?[phone] Fax:?[phone] Patient:Valorie Cox D.O.B:?1965 Sex:?Female Phone:?[phone] [facility] MRN:?[id number] Exam Date:?02/11/2023 EXAM: PET/CT SCAN MID-ORBITS TO PROXIMAL THIGHS CLINICAL INFORMATION: Breast cancer history original diagnosis 2000 with recurrence in 2009 and 2020. Prior bilateral mastectomies, chemotherapy and radiation. Additional malignancies including well differentiated thyroid carcinoma with prior thyroidectomy and diffuse B cell lymphoma with adjuvant chemotherapy. TECHNICAL INFORMATION: Spiral acquisition of data was obtained from the mid orbits to the proximal thighs with reconstruction of 3.75 mm thick images at 3.[address] data was used for attenuation correction. PET scanning was performed through the same anatomic range 60 minutes following administration of 12.85 mCi of 18-FDG delivered intravenously. The patient's glucose at the time of the injection was 75 mg/dL. PET, CT and PET/CT fusion images are interpreted using a computer viewing workstation. INTERPRETATION: Physiologic background liver and standardized uptake (SUV mean 3.0) Head and Neck: No adenopathy or suspicious uptake. Chest: No new or FDG avid lung nodule or abnormal parenchymal uptake. Stable nodular opacity right middle lobe and postradiation changes mediastinal and anterior margins of upper lobes. Stable appearance of calcified mediastinal and hilar nodes, SUV max subcarinal node 3.1, previously 3.0. No new adenopathy is identified. Stable appearance of previous postsurgical/treatment changes including bilateral mastectomies with persistent irregular chest wall/axillary soft tissue thickening, SUV max left chest wall 4.1, previously 4.7 and right axillary soft tissue uptake 3.1, previously 3.4. Abdomen, Pelvis and Proximal Thighs: No suspicious liver lesions. No bile duct dilatation. The gallbladder, pancreas, adrenal glands and kidneys are unremarkable. No GI tract abnormality. No pathologic mesenteric or retroperitoneal adenopathy. Normal caliber abdominal aorta with atherosclerotic calcification. No pelvic adenopathy, mass, hernia or fluid collection. MUSCULOSKELETAL: Marked disc degeneration L4-L5 level. Nondisplaced fractures lateral left fourth/fifth rib, stable. CONCLUSION: 1. Overall stable exam with extensive postoperative/posttreatment changes bilateral chest/chest wall/axillary tissue with moderate FDG uptake, but no definite evidence of locally recurrent or advancing disease. 2. No evidence of distant metastatic disease or developing adenopathy. No other acute abnormality is identified. Electronically signed on 02/15/2023 11:37:00 AM by Hamlet Dickson M.D.
== END 2023-02-11 11:21 | disposition home or self-care (01) ==
LOC: RAD 11:20
PROVIDERS: PCP Internal Medicine; Visit Provider Internal Medicine Hematology & Oncology
DX: C50.412 Malignant neoplasm of upper-outer quadrant of left female breast (principal)
CPT/HCPCS: 78815; A9552

== ENCOUNTER 2023-04-13 08:30 | Outpatient (RCR) | payer BC, SELFPAY ==
[2022-11-12 09:27] LABS: Basophils Absolute Auto 0.11 K/uL (0.00-0.30); Basophils Percent Auto 1.5 % (0.0-3.0); Eosinophils Absolute Auto 0.12 K/uL (0.00-0.50); Eosinophils Percent Auto 1.6 % (0.0-7.0); Hematocrit 38.6 % (33.0-51.0); Hemoglobin* 12.2 gm/dL (12.0-16.0); Immature Granulocytes Abs Auto 0.02 K/uL (0.00-0.30); Immature Granulocytes Pct Auto 0.3 %; Lymphocytes Absolute Auto 3.06 K/uL (0.90-2.90); Lymphocytes Percent Auto 40.4 % (20-44); Mean Corpuscular HGB Conc 32 gm/dL (32-36); Mean Corpuscular Hemoglobin 32 pg (26-34); Mean Corpuscular Volume 100 fL (80-100); Monocytes Percent Auto 10.3 % (0.0-11.0); Neutrophils Absolute Auto 3.48 K/uL (1.7-7.0); Neutrophils Percent Auto 45.9 % (42.0-72.0); Platelet Count* 376 K/uL (140-440); RDW Coefficient of Variation % 13.8 % (11.5-15.5); Red Blood Count 3.87 m/uL (4.00-5.20); White Blood Count* 7.57 K/uL (4.50-11.00)
[2022-11-12 09:29] LABS: Slide Review Reflex No
[2022-11-12 10:00] LABS: Albumin* 4.1 g/dL (3.3-5.0); Chloride* 100 mmol/L (96-114); Potassium* 4.8 mmol/L (3.6-5.1); Sodium* 137 mmol/L (135-149)
[2022-11-12 10:02] LABS: Creatinine* 1.2 mg/dL (0.5-1.5); Estimated Glomerular Filt Rate 53 ml/min
[2022-11-12 10:03] LABS: Alanine Aminotransferase* 29 U/L (4-35); Alkaline Phosphatase* 121 U/L (40-150); Anion Gap 4 mEq/L (7-15); Aspartate Amino Transferase* 46 U/L (12-35); Bilirubin Total* 0.9 mg/dL (0.1-1.5); Blood Urea Nitrogen* 23 mg/dL (7-30); Calcium* 9.8 mg/dL (8.4-10.6); Carbon Dioxide* 33 mmol/L (20-32); Glucose* 99 mg/dL (60-115); Total Protein* 7.8 g/dL (6.0-8.3)
[2022-12-10 08:56] LABS: Basophils Absolute Auto 0.09 K/uL (0.00-0.30); Basophils Percent Auto 1.3 % (0.0-3.0); Eosinophils Absolute Auto 0.14 K/uL (0.00-0.50); Hematocrit 34.9 % (33.0-51.0); Hemoglobin* 11.3 gm/dL (12.0-16.0); Immature Granulocytes Abs Auto 0.02 K/uL (0.00-0.30); Immature Granulocytes Pct Auto 0.3 %; Lymphocytes Absolute Auto 2.35 K/uL (0.90-2.90); Mean Corpuscular HGB Conc 32 gm/dL (32-36); Mean Corpuscular Hemoglobin 32 pg (26-34); Mean Corpuscular Volume 99 fL (80-100); Monocytes Percent Auto 11.1 % (0.0-11.0); Neutrophils Absolute Auto 3.74 K/uL (1.7-7.0); Neutrophils Percent Auto 52.3 % (42.0-72.0); Platelet Count* 383 K/uL (140-440); RDW Coefficient of Variation % 13.8 % (11.5-15.5); Red Blood Count 3.54 m/uL (4.00-5.20); White Blood Count* 7.13 K/uL (4.50-11.00)
[2022-12-10 08:58] LABS: Slide Review Reflex No
[2022-12-10 09:16] LABS: Chloride* 98 mmol/L (96-114)
[2022-12-10 09:17] LABS: Potassium* 4.5 mmol/L (3.6-5.1); Sodium* 136 mmol/L (135-149)
[2022-12-10 09:19] LABS: Anion Gap 9 mEq/L (7-15); Bilirubin Total* 0.7 mg/dL (0.1-1.5); Carbon Dioxide* 29 mmol/L (20-32); Creatinine* 1.1 mg/dL (0.5-1.5); Estimated Glomerular Filt Rate 59 ml/min
[2022-12-10 09:20] LABS: Alanine Aminotransferase* 27 U/L (4-35); Alkaline Phosphatase* 122 U/L (40-150); Aspartate Amino Transferase* 46 U/L (12-35); Blood Urea Nitrogen* 25 mg/dL (7-30); Calcium* 8.7 mg/dL (8.4-10.6); Glucose* 79 mg/dL (60-115); Total Protein* 7.5 g/dL (6.0-8.3)
[2023-01-07 08:46] LABS: Basophils Absolute Auto 0.12 K/uL (0.00-0.30); Basophils Percent Auto 1.3 % (0.0-3.0); Eosinophils Absolute Auto 0.17 K/uL (0.00-0.50); Eosinophils Percent Auto 1.8 % (0.0-7.0); Hematocrit 41.2 % (33.0-51.0); Hemoglobin* 13.1 gm/dL (12.0-16.0); Immature Granulocytes Abs Auto 0.01 K/uL (0.00-0.30); Immature Granulocytes Pct Auto 0.1 %; Lymphocytes Percent Auto 30.1 % (20-44); Mean Corpuscular HGB Conc 32 gm/dL (32-36); Mean Corpuscular Hemoglobin 32 pg (26-34); Mean Corpuscular Volume 100 fL (80-100); Monocytes Percent Auto 8.8 % (0.0-11.0); Neutrophils Absolute Auto 5.39 K/uL (1.7-7.0); Neutrophils Percent Auto 57.9 % (42.0-72.0); Platelet Count* 386 K/uL (140-440); RDW Coefficient of Variation % 13.7 % (11.5-15.5); Red Blood Count 4.12 m/uL (4.00-5.20); White Blood Count* 9.31 K/uL (4.50-11.00)
[2023-01-07 08:57] LABS: Slide Review Reflex No
[2023-01-07 09:03] LABS: Albumin* 4.7 g/dL (3.3-5.0); Chloride* 94 mmol/L (96-114)
[2023-01-07 09:04] LABS: Potassium* 4.2 mmol/L (3.6-5.1); Sodium* 137 mmol/L (135-149)
[2023-01-07 09:06] LABS: Anion Gap 16 mEq/L (7-15); Aspartate Amino Transferase* 70 U/L (12-35); Bilirubin Total* 0.9 mg/dL (0.1-1.5); Carbon Dioxide* 27 mmol/L (20-32); Creatinine* 1.2 mg/dL (0.5-1.5); Estimated Glomerular Filt Rate 53 ml/min; Total Protein* 8.8 g/dL (6.0-8.3)
[2023-01-07 09:07] LABS: Alanine Aminotransferase* 35 U/L (4-35); Alkaline Phosphatase* 157 U/L (40-150); Blood Urea Nitrogen* 24 mg/dL (7-30); Calcium* 9.9 mg/dL (8.4-10.6); Glucose* 87 mg/dL (60-115)
[2023-01-07 09:19] LABS: Cholesterol* 206 mg/dL (90-199)
[2023-01-07 09:20] LABS: HDL Cholesterol* 82 mg/dL (>=50); LDL Cholesterol Calculated 83 mg/dL (<100); Triglycerides* 207 mg/dL (40-149)
[2023-01-07 09:48] LABS: TSH With Reflex to FT4* 0.023 uIU/mL (0.270-4.200)
[2023-01-07 10:16] LABS: Free T4 Free Thyroxine* 2.05 ng/dL (0.70-1.85)
[2023-02-11 12:05] LABS: Basophils Absolute Auto 0.13 K/uL (0.00-0.30); Basophils Percent Auto 1.6 % (0.0-3.0); Eosinophils Absolute Auto 0.13 K/uL (0.00-0.50); Eosinophils Percent Auto 1.6 % (0.0-7.0); Hematocrit 35.2 % (33.0-51.0); Hemoglobin* 11.5 gm/dL (12.0-16.0); Immature Granulocytes Abs Auto 0.01 K/uL (0.00-0.30); Immature Granulocytes Pct Auto 0.1 %; Lymphocytes Absolute Auto 2.84 K/uL (0.90-2.90); Lymphocytes Percent Auto 34.2 % (20-44); Mean Corpuscular HGB Conc 33 gm/dL (32-36); Mean Corpuscular Hemoglobin 32 pg (26-34); Mean Corpuscular Volume 98 fL (80-100); Monocytes Percent Auto 11.1 % (0.0-11.0); Neutrophils Absolute Auto 4.28 K/uL (1.7-7.0); Neutrophils Percent Auto 51.4 % (42.0-72.0); Platelet Count* 433 K/uL (140-440); RDW Coefficient of Variation % 13.6 % (11.5-15.5); Red Blood Count 3.58 m/uL (4.00-5.20); White Blood Count* 8.31 K/uL (4.50-11.00)
[2023-02-11 12:08] LABS: Slide Review Reflex No
[2023-02-11 12:19] LABS: Albumin* 4.6 g/dL (3.3-5.0); Chloride* 97 mmol/L (96-114); Potassium* 4.5 mmol/L (3.6-5.1); Sodium* 135 mmol/L (135-149)
[2023-02-11 12:22] LABS: Alanine Aminotransferase* 29 U/L (4-35); Alkaline Phosphatase* 147 U/L (40-150); Anion Gap 8 mEq/L (7-15); Aspartate Amino Transferase* 42 U/L (12-35); Bilirubin Total* 1.2 mg/dL (0.1-1.5); Blood Urea Nitrogen* 26 mg/dL (7-30); Carbon Dioxide* 30 mmol/L (20-32); Creatinine* 1.3 mg/dL (0.5-1.5); Estimated Glomerular Filt Rate 48 ml/min; Glucose* 90 mg/dL (60-115); Total Protein* 8.2 g/dL (6.0-8.3)
[2023-02-11 12:23] LABS: Calcium* 9.9 mg/dL (8.4-10.6)
--- NOTE | 2023-02-16 10:40 | URNOTE ---
Per [employer], Prior auth is not required for Denosumab ([id number]). REf #[id number]
[2023-02-17] MEDS: DENOSUMAB 60 MG/ML SYRINGE SUBCUT (09:01)
[2023-03-18 08:39] LABS: Basophils Absolute Auto 0.15 K/uL (0.00-0.30); Basophils Percent Auto 2.6 % (0.0-3.0); Eosinophils Absolute Auto 0.14 K/uL (0.00-0.50); Eosinophils Percent Auto 2.4 % (0.0-7.0); Hematocrit 39.1 % (33.0-51.0); Hemoglobin* 12.5 gm/dL (12.0-16.0); Immature Granulocytes Abs Auto 0.01 K/uL (0.00-0.30); Immature Granulocytes Pct Auto 0.2 %; Lymphocytes Absolute Auto 2.08 K/uL (0.90-2.90); Mean Corpuscular HGB Conc 32 gm/dL (32-36); Mean Corpuscular Hemoglobin 32 pg (26-34); Mean Corpuscular Volume 100 fL (80-100); Monocytes Percent Auto 11.2 % (0.0-11.0); Neutrophils Absolute Auto 2.75 K/uL (1.7-7.0); Neutrophils Percent Auto 47.6 % (42.0-72.0); Platelet Count* 375 K/uL (140-440); RDW Coefficient of Variation % 14.2 % (11.5-15.5); Red Blood Count 3.91 m/uL (4.00-5.20); White Blood Count* 5.78 K/uL (4.50-11.00)
[2023-03-18 08:40] LABS: Slide Review Reflex No
[2023-03-18 08:51] LABS: Albumin* 4.5 g/dL (3.3-5.0); Chloride* 100 mmol/L (96-114); Potassium* 4.5 mmol/L (3.6-5.1); Sodium* 136 mmol/L (135-149)
[2023-03-18 08:53] LABS: Creatinine* 1.2 mg/dL (0.5-1.5); Estimated Glomerular Filt Rate 53 ml/min
[2023-03-18 08:54] LABS: Alanine Aminotransferase* 27 U/L (4-35); Alkaline Phosphatase* 133 U/L (40-150); Anion Gap 7 mEq/L (7-15); Aspartate Amino Transferase* 42 U/L (12-35); Bilirubin Total* 0.8 mg/dL (0.1-1.5); Blood Urea Nitrogen* 25 mg/dL (7-30); Carbon Dioxide* 29 mmol/L (20-32); Glucose* 63 mg/dL (60-115); Total Protein* 7.9 g/dL (6.0-8.3)
[2023-03-18 08:55] LABS: Calcium* 9.2 mg/dL (8.4-10.6)
[2023-04-13 08:47] LABS: Basophils Absolute Auto 0.15 K/uL (0.00-0.30); Basophils Percent Auto 2.2 % (0.0-3.0); Eosinophils Absolute Auto 0.17 K/uL (0.00-0.50); Eosinophils Percent Auto 2.5 % (0.0-7.0); Hematocrit 37.8 % (33.0-51.0); Immature Granulocytes Abs Auto 0.01 K/uL (0.00-0.30); Immature Granulocytes Pct Auto 0.1 %; Lymphocytes Absolute Auto 2.82 K/uL (0.90-2.90); Lymphocytes Percent Auto 41.7 % (20-44); Mean Corpuscular HGB Conc 32 gm/dL (32-36); Mean Corpuscular Hemoglobin 32 pg (26-34); Mean Corpuscular Volume 100 fL (80-100); Monocytes Percent Auto 11.5 % (0.0-11.0); Neutrophils Absolute Auto 2.84 K/uL (1.7-7.0); Platelet Count* 403 K/uL (140-440); RDW Coefficient of Variation % 14.1 % (11.5-15.5); White Blood Count* 6.77 K/uL (4.50-11.00)
[2023-04-13 08:52] LABS: Slide Review Reflex No
[2023-04-13 09:02] LABS: Albumin* 4.5 g/dL (3.3-5.0); Chloride* 100 mmol/L (96-114); Potassium* 4.5 mmol/L (3.6-5.1); Sodium* 137 mmol/L (135-149)
[2023-04-13 09:05] LABS: Alanine Aminotransferase* 28 U/L (4-35); Alkaline Phosphatase* 128 U/L (40-150); Anion Gap 7 mEq/L (7-15); Aspartate Amino Transferase* 42 U/L (12-35); Bilirubin Total* 0.9 mg/dL (0.1-1.5); Blood Urea Nitrogen* 27 mg/dL (7-30); Carbon Dioxide* 30 mmol/L (20-32); Creatinine* 1.2 mg/dL (0.5-1.5); Estimated Glomerular Filt Rate 53 ml/min; Glucose* 66 mg/dL (60-115); Total Protein* 7.8 g/dL (6.0-8.3)
[2023-04-13 09:06] LABS: Calcium* 9.3 mg/dL (8.4-10.6)
[2023-04-13 09:47] LABS: TSH With Reflex to FT4* 0.569 uIU/mL (0.270-4.200)
== END 2023-05-11 23:59 | disposition home or self-care (01) ==
LOC: CCIC 08:30
PROVIDERS: PCP Internal Medicine; Referring Provider Internal Medicine; Visit Provider Internal Medicine Hematology & Oncology
DX: C50.911 Malignant neoplasm of unspecified site of right female breast (principal); E03.9 Hypothyroidism, unspecified; Z85.850 Personal history of malignant neoplasm of thyroid; Z17.0 Estrogen receptor positive status [ER+]
CPT/HCPCS: 36415; 36592; 80053; 80061; 84439; 84443; 85025; 96372; 99212; 99214; J0897

== ENCOUNTER 2023-08-12 13:33 | Outpatient (CLI) | payer BC, SELFPAY ==
--- NOTE | 2023-08-12 15:00 | PE_ITS ---
[facility] [address] [facility] [address] Phone:?[phone] Fax:?[phone] Referring Physician Information: Mikayla Han M.D. [address] [facility] [address] Phone:?[phone] Fax:?[phone] Patient:Valorie Cox D.O.B:?1965 Sex:?Female Phone:?[phone] [facility] MRN:?[id number] Exam Date:?08/12/2023 EXAM:?PET/CT EYES TO THIGHS, CANCER RESTAGING CLINICAL INFORMATION: Breast Cancer TECHNICAL INFORMATION: Helical acquisition of data was obtained from the orbits to the upper thighs with reconstruction of 3.75 mm thick images at 3.[address] data was used for attenuation correction. PET scanning was performed through the same anatomic range 60 minutes following administration of 13.67 mCi of 18-FDG delivered intravenously. The patient's glucose at the time of the injection was 81 mg/dL. PET, CT and PET/CT fusion images are interpreted using a computer viewing workstation. PET, CT and PET/CT fusion images were archived and saved in the patient's permanent medical record. COMPARISON: PET/CT 02/11/2023 INTERPRETATION: Head and Neck: There are no abnormal hypermetabolic foci within the head or neck. There is physiologic uptake in the intracranial soft tissues. Chest: Background mediastinal blood pool activity with a mean SUV of 2.19. Similar calcified mediastinal and hilar lymph nodes with an SUV max of 3.75. No enlarging lymph nodes. Stable postsurgical changes in the medial upper lobe regions. Stable elongated tubular structure in the right middle lobe region without associated FDG avidity. No new or enlarging lung nodules within the limitations of this exam. Stable postsurgical changes of bilateral mastectomy with prominent soft tissue thickening in the bilateral axilla with an SUV max of 2.69 on the right and 3.66 in the left. Stable skin thickening. Prominent physiologic uptake in the chest wall. Abdomen and Pelvis: Background liver parenchymal uptake with a mean SUV of 3.04. There are no abnormal hypermetabolic foci within the abdomen or pelvis. There is physiologic excretion of radiotracer in the urine and bowel. The spleen is surgically absent. Aortoiliac atherosclerosis. Mild sigmoid diverticulosis. Moderate stool burden. Skeleton, Musculature, and Integument: No abnormal hypermetabolic foci within the skeleton. No ishmael osteoblastic or osteolytic disease. Redemonstrated old fracture deformities of the left lateral fourth and fifth ribs. Slightly increased sclerosis of the right anterolateral first through fifth ribs without significant associated radiotracer avidity. Radiotracer avidity is noted in the intercostal region. Similar degenerative changes at L4- L5. CONCLUSION: * Stable exam. Similar postoperative/posttreatment changes in the bilateral chest wall/axillary regions with associated FDG avidity. Slightly increased physiologic FDG uptake in the chest wall on this exam without convincing evidence of recurrent disease. * Interval increasing sclerosis of the right anterolateral first through fifth ribs without significant associated FDG avidity to suggest metastasis. Correlate with any history of trauma to suggest possible healed fractures. Consider short interval CT chest in 3 months to ensure stability. * No evidence of metastatic disease. Electronically signed on 08/16/2023 10:37:00 AM by Yuri Cardozo D.O
== END 2023-08-12 13:34 | disposition home or self-care (01) ==
LOC: RAD 13:33
PROVIDERS: PCP Internal Medicine; Visit Provider Internal Medicine Hematology & Oncology
DX: C50.412 Malignant neoplasm of upper-outer quadrant of left female breast (principal)
CPT/HCPCS: 78815; A9552

== ENCOUNTER 2023-08-23 09:30 | Outpatient (RCR) | payer BC, SELFPAY ==
[2023-05-13 08:18] LABS: Basophils Absolute Auto 0.15 K/uL (0.00-0.30); Eosinophils Absolute Auto 0.18 K/uL (0.00-0.50); Eosinophils Percent Auto 2.4 % (0.0-7.0); Hematocrit 38.9 % (33.0-51.0); Hemoglobin* 12.4 gm/dL (12.0-16.0); Immature Granulocytes Abs Auto 0.01 K/uL (0.00-0.30); Immature Granulocytes Pct Auto 0.1 %; Lymphocytes Absolute Auto 2.75 K/uL (0.90-2.90); Lymphocytes Percent Auto 36.9 % (20-44); Mean Corpuscular HGB Conc 32 gm/dL (32-36); Mean Corpuscular Hemoglobin 32 pg (26-34); Mean Corpuscular Volume 100 fL (80-100); Monocytes Percent Auto 9.5 % (0.0-11.0); Neutrophils Absolute Auto 3.66 K/uL (1.7-7.0); Neutrophils Percent Auto 49.1 % (42.0-72.0); Platelet Count* 405 K/uL (140-440); RDW Coefficient of Variation % 13.6 % (11.5-15.5); Red Blood Count 3.91 m/uL (4.00-5.20); White Blood Count* 7.46 K/uL (4.50-11.00)
[2023-05-13 08:22] LABS: Slide Review Reflex No
[2023-05-13 08:36] LABS: Albumin* 4.3 g/dL (3.3-5.0); Chloride* 101 mmol/L (96-114); Sodium* 138 mmol/L (135-149)
[2023-05-13 08:37] LABS: Potassium* 4.4 mmol/L (3.6-5.1)
[2023-05-13 08:39] LABS: Alanine Aminotransferase* 23 U/L (4-35); Alkaline Phosphatase* 113 U/L (40-150); Anion Gap 5 mEq/L (7-15); Aspartate Amino Transferase* 36 U/L (12-35); Bilirubin Total* 0.7 mg/dL (0.1-1.5); Blood Urea Nitrogen* 29 mg/dL (7-30); Carbon Dioxide* 32 mmol/L (20-32); Creatinine* 1.2 mg/dL (0.5-1.5); Estimated Glomerular Filt Rate 53 ml/min; Total Protein* 7.6 g/dL (6.0-8.3)
[2023-05-13 08:40] LABS: Calcium* 9.6 mg/dL (8.4-10.6); Glucose* 91 mg/dL (60-115)
--- NOTE | 2023-05-13 09:38 | ONC.NURNOTE ---
Patient informed that her labs are within parameters to continue Verzenio. Patient is taking 150mg daily. Patient denies any questions or concerns. Patient confirms plan for labs and follow up on 06/08.
[2023-06-09 07:58] LABS: Basophils Absolute Auto 0.15 K/uL (0.00-0.30); Basophils Percent Auto 1.6 % (0.0-3.0); Eosinophils Absolute Auto 0.11 K/uL (0.00-0.50); Eosinophils Percent Auto 1.2 % (0.0-7.0); Hematocrit 38.9 % (33.0-51.0); Hemoglobin* 12.6 gm/dL (12.0-16.0); Immature Granulocytes Abs Auto 0.02 K/uL (0.00-0.30); Immature Granulocytes Pct Auto 0.2 %; Lymphocytes Absolute Auto 2.68 K/uL (0.90-2.90); Mean Corpuscular HGB Conc 32 gm/dL (32-36); Mean Corpuscular Hemoglobin 32 pg (26-34); Mean Corpuscular Volume 99 fL (80-100); Monocytes Percent Auto 7.6 % (0.0-11.0); Neutrophils Absolute Auto 5.59 K/uL (1.7-7.0); Neutrophils Percent Auto 60.4 % (42.0-72.0); Platelet Count* 433 K/uL (140-440); RDW Coefficient of Variation % 13.5 % (11.5-15.5); Red Blood Count 3.94 m/uL (4.00-5.20); White Blood Count* 9.25 K/uL (4.50-11.00)
[2023-06-09 08:03] LABS: Slide Review Reflex No
[2023-06-09 08:09] LABS: Chloride* 101 mmol/L (96-114)
[2023-06-09 08:10] LABS: Albumin* 4.4 g/dL (3.3-5.0); Sodium* 138 mmol/L (135-149)
[2023-06-09 08:12] LABS: Creatinine* 1.1 mg/dL (0.5-1.5); Estimated Glomerular Filt Rate 59 ml/min
[2023-06-09 08:13] LABS: Alanine Aminotransferase* 26 U/L (4-35); Alkaline Phosphatase* 114 U/L (40-150); Anion Gap 7 mEq/L (7-15); Aspartate Amino Transferase* 37 U/L (12-35); Bilirubin Total* 0.8 mg/dL (0.1-1.5); Blood Urea Nitrogen* 21 mg/dL (7-30); Carbon Dioxide* 30 mmol/L (20-32); Glucose* 114 mg/dL (60-115); Total Protein* 7.9 g/dL (6.0-8.3)
[2023-06-09 08:14] LABS: Calcium* 10.2 mg/dL (8.4-10.6)
--- NOTE | 2023-06-15 07:53 | ONC.NURNOTE ---
Pet scan order and supporting documentation faxed to [facility].
[2023-07-16 08:06] LABS: Basophils Absolute Auto 0.14 K/uL (0.00-0.30); Basophils Percent Auto 1.9 % (0.0-3.0); Eosinophils Absolute Auto 0.24 K/uL (0.00-0.50); Eosinophils Percent Auto 3.2 % (0.0-7.0); Hematocrit 40.7 % (33.0-51.0); Hemoglobin* 12.9 gm/dL (12.0-16.0); Immature Granulocytes Abs Auto 0.01 K/uL (0.00-0.30); Immature Granulocytes Pct Auto 0.1 %; Lymphocytes Absolute Auto 2.57 K/uL (0.90-2.90); Lymphocytes Percent Auto 34.7 % (20-44); Mean Corpuscular HGB Conc 32 gm/dL (32-36); Mean Corpuscular Hemoglobin 32 pg (26-34); Mean Corpuscular Volume 100 fL (80-100); Monocytes Percent Auto 9.9 % (0.0-11.0); Neutrophils Absolute Auto 3.71 K/uL (1.7-7.0); Neutrophils Percent Auto 50.2 % (42.0-72.0); Platelet Count* 440 K/uL (140-440); RDW Coefficient of Variation % 14.5 % (11.5-15.5); Red Blood Count 4.08 m/uL (4.00-5.20)
[2023-07-16 08:09] LABS: Slide Review Reflex No
[2023-07-16 08:24] LABS: Chloride* 102 mmol/L (96-114)
[2023-07-16 08:25] LABS: Albumin* 4.5 g/dL (3.3-5.0); Potassium* 4.2 mmol/L (3.6-5.1); Sodium* 139 mmol/L (135-149)
[2023-07-16 08:28] LABS: Alanine Aminotransferase* 25 U/L (4-35); Alkaline Phosphatase* 114 U/L (40-150); Anion Gap 7 mEq/L (7-15); Aspartate Amino Transferase* 37 U/L (12-35); Bilirubin Total* 0.7 mg/dL (0.1-1.5); Blood Urea Nitrogen* 31 mg/dL (7-30); Carbon Dioxide* 30 mmol/L (20-32); Creatinine* 1.5 mg/dL (0.5-1.5); Estimated Glomerular Filt Rate 40 ml/min; Glucose* 72 mg/dL (60-115); Total Protein* 8.2 g/dL (6.0-8.3)
[2023-07-16 08:29] LABS: Calcium* 9.8 mg/dL (8.4-10.6)
--- NOTE | 2023-07-16 15:08 | ONC.NURNOTE ---
Addendum entered by Keerthi Bartlett RN 07/20/23 14:09: Reviewed with Dr. Han. Ok to move Pet CT and end of Verzenio up to August. Appts moved. Reviewed with pt; she verbalizes understanding. 08/11 @ 1345 monthly labs and PIV placement for Pet CT; Pet CT @ 1500 08/22 @ 0930 f/u appt Dr. Han Original Note: Call to patient to review blood work. Patient informed that her labs are all within parameters to continue Verzenio 150 mg daily. Patient reports intermittent diarrhea and fatigue, both unchanged. Patient will have a change of insurance on September 05. She is wonderin. If her PET/CT can be moved up to late August 2. If she can complete her Verzenio a few weeks early (two years will be 10/01/2021) I assured her that I would discuss with Dr. Han on Wednesday and return her call.
[2023-08-12 14:06] LABS: Basophils Percent Auto 1.5 % (0.0-3.0); Eosinophils Absolute Auto 0.11 K/uL (0.00-0.50); Eosinophils Percent Auto 1.6 % (0.0-7.0); Hematocrit 38.8 % (33.0-51.0); Hemoglobin* 12.3 gm/dL (12.0-16.0); Immature Granulocytes Abs Auto 0.01 K/uL (0.00-0.30); Immature Granulocytes Pct Auto 0.1 %; Lymphocytes Absolute Auto 2.81 K/uL (0.90-2.90); Lymphocytes Percent Auto 40.9 % (20-44); Mean Corpuscular HGB Conc 32 gm/dL (32-36); Mean Corpuscular Hemoglobin 32 pg (26-34); Mean Corpuscular Volume 100 fL (80-100); Neutrophils Absolute Auto 3.15 K/uL (1.7-7.0); Neutrophils Percent Auto 45.9 % (42.0-72.0); Platelet Count* 370 K/uL (140-440); RDW Coefficient of Variation % 14.3 % (11.5-15.5); Red Blood Count 3.88 m/uL (4.00-5.20); White Blood Count* 6.87 K/uL (4.50-11.00)
[2023-08-12 14:07] LABS: Slide Review Reflex No
[2023-08-12 14:20] LABS: Albumin* 4.7 g/dL (3.3-5.0)
[2023-08-12 14:21] LABS: Chloride* 99 mmol/L (96-114); Potassium* 4.2 mmol/L (3.6-5.1); Sodium* 137 mmol/L (135-149)
[2023-08-12 14:23] LABS: Anion Gap 7 mEq/L (7-15); Aspartate Amino Transferase* 40 U/L (12-35); Bilirubin Total* 1.1 mg/dL (0.1-1.5); Carbon Dioxide* 31 mmol/L (20-32); Estimated Glomerular Filt Rate 65 ml/min
[2023-08-12 14:24] LABS: Alanine Aminotransferase* 23 U/L (4-35); Alkaline Phosphatase* 115 U/L (40-150); Blood Urea Nitrogen* 25 mg/dL (7-30); Calcium* 9.5 mg/dL (8.4-10.6); Glucose* 94 mg/dL (60-115)
--- NOTE | 2023-08-16 11:46 | ONC.NURNOTE ---
Call to patient to review labs from last week. Patient informed that all labs are within parameters to continue Verzenio. Patient plans to discuss end date of Verzenio with Dr. Han at her follow up visit next week due to upcoming insurance changes. We briefly discussed her PET/CT results. I read the impression to her and informed her that we would discuss this in more detail at her follow up visit.
[2023-08-23] MEDS: DENOSUMAB 60 MG/ML SYRINGE SUBCUT (10:11)
--- NOTE | 2023-08-23 13:44 | ONC.NURNOTE ---
Patient scheduled for PET/CT on 11/17 at 1:30. Patient will present to [facility] prior for labs and PIV insertion. Orders and supporting records faxed to [facility], .
== END 2023-11-09 23:59 | disposition home or self-care (01) ==
LOC: CCIC 09:30
PROVIDERS: PCP Internal Medicine; Referring Provider Internal Medicine; Visit Provider Internal Medicine Hematology & Oncology
DX: C50.911 Malignant neoplasm of unspecified site of right female breast (principal); Z17.0 Estrogen receptor positive status [ER+]; C83.30 Diffuse large B-cell lymphoma, unspecified site; N95.1 Menopausal and female climacteric states; Z90.13 Acquired absence of bilateral breasts and nipples
CPT/HCPCS: 36415; 80053; 85025; 96372; 99211; 99215; G0463; J0897

== ENCOUNTER 2023-10-04 03:38 | Emergency (ER) | payer OTHER, SELFPAY ==
--- NOTE | 2023-10-04 03:44 | ED.GENADULT ---
HPI - General Adult General Date Seen: 10/04/23 Chief complaint: Urogenital Problems, Female Stated complaint: Possible UTI and leg pain Time Seen by Provider: 10/04/23 03:39 History of Present Illness HPI narrative: 58-year-old female with a history of breast cancer (recently stopped a 2 year course of friends he 0 last month, still on hormone therapy) also history of non-Hodgkin's lymphoma, hypertension, hypothyroidism, osteopenia, as well as a history of occasional UTIs. She presents to the ER tonight with 2 concerns. First, she is concerned she has a UTI. She has developed symptoms of urinary urgency and dysuria that began in a mild fashion 2 days ago on Wednesday and have gotten a bit worse today on Wednesday. She was in [facility] [place] over the weekend and was trying to delay coming to the doctor for her UTI until tomorrow. However symptoms got worse overnight and she also had a painful bug bite so she came to the ER on the overnight tonight. She is not having any fever chills. No nausea or vomiting. No weakness. No flank pain. No other abdominal pain. She also was helping her clear weeds and brush at their cabin. She does not recall a specific plant exposure or bug bite but she developed a painful burning, itchy, red area on her left posterior knee today. It has been bothersome tonight and she has been unable to sleep. She only has 1 oval-shaped area. No other rashes. No blistering. No trouble breathing. No other pain or swelling in her leg. Related Data Home Medications ?Medication ?Instructions ?Recorded ?Confirmed aspirin 81 mg capsule 81 mg PO DAILY 09/29/21 08/23/23 multivitamin 1 tab PO DAILY 09/29/21 08/23/23 omega-3 fatty acids 1,000 mg 1,000 mg PO DAILY 09/29/21 08/23/23 capsule calcium phosphate,dibasic 77 tab PO 10/08/21 08/23/23 mg-vitamin D3 400 unit tablet loperamide 2 mg capsule 2 mg PO Q6H PRN 10/29/21 08/23/23 cholecalciferol (vitamin D3) 25 25 mcg PO QDAY 11/26/21 08/23/23 mcg (1,000 unit) capsule biotin 10 mg tablet 10 mg PO DAILY 07/21/22 08/23/23 Previous Rx's ?Medication ?Instructions ?Recorded metoprolol succinate 50 mg 50 mg PO QDAY #90 tabs 11/12/22 tablet,extended release 24 hr abemaciclib 150 mg tablet 150 mg PO DAILY #28 tabs 01/18/23 letrozole 2.5 mg tablet 2.5 mg PO DAILY #90 tabs 03/24/23 loratadine 10 mg tablet (Claritin) 10 mg PO QDAY #7 tabs 06/09/23 methylprednisolone 4 mg tablets in See Rx Instructions PO PER PKG DIR 06/09/23 a dose pack (Medrol ([place])) #21 ea levothyroxine 100 mcg tablet 100 mcg PO QDAY #90 tabs 07/07/23 methylprednisolone 4 mg tablets in See Rx Instructions PO PER PKG DIR 08/23/23 a dose pack (Medrol ([place])) #21 ea cephalexin 500 mg capsule 500 mg PO Q12H #10 caps 10/04/23 hydrocortisone 2.5 % topical cream 1 applic topical BID PRN #28 grams 10/04/23 Allergies Allergy/AdvReac Type Severity Reaction Status Date / Time morphine AdvReac Intermediate Nausea Verified 08/23/23 09:32 prochlorperazine AdvReac Intermediate nausea Verified 08/23/23 09:32 [facility] Medical History (Updated 10/04/23 @ 04:07 by Riky Smith MD) History of thyroid cancer ?Z85.850 - Personal history of malignant neoplasm of thyroid (ICD-10) History of Hodgkin's disease (1979) ?Z85.71 - Personal history of Hodgkin lymphoma (ICD-10) 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 - Generalized skin eruption due to drugs and medicaments taken internally (ICD-10) Surgical History (Updated 11/12/22 @ 08:14 by Sofia Manuel MD) History of thyroidectomy ?E89.0 - Postprocedural hypothyroidism (ICD-10) History of colonoscopy (05/30/18) ?Z98.890 - Other specified postprocedural states (ICD-10) Status post myringotomy with tube placement of both ears ?Z96.22 - Myringotomy tube(s) status (ICD-10) History of appendectomy (06/21/18) ?Z90.49 - Acquired absence of other specified parts of digestive tract (ICD-10) Left subclavian artery occlusion (2015) ?I70.8 - Atherosclerosis of other arteries (ICD-10) History of splenectomy (1979) ?Z90.81 - Acquired absence of spleen (ICD-10) History of mantle field radiation therapy (1979) ?Z92.3 - Personal history of irradiation (ICD-10) H/O breast reconstruction ?Z98.890 - Other specified postprocedural states (ICD-10) Family History (Updated 11/04/22 @ 09:44 by Miri Sen) Mother Thyroid disease Coronary artery disease Parkinson's disease Atrial fibrillation Father Pacemaker Stroke Brother High cholesterol Depression Social History Smoking Status: Never smoker Little interest or pleasure in doing things: not at all Feeling down, depressed, or hopeless: not at all Exam Narrative: Exam Narrative: Constitutional: Appears well-developed and well-nourished. Alert. Conversant. Non toxic. HENT: Head: Atraumatic. Nose: Nose normal. Mouth/Throat: Oral mucosa is clear and moist. no trismus. Eyes: Conjunctivae normal. EOM normal. Pupils equal, round, and reactive to light. No scleral icterus. Neck: Normal range of motion. Neck supple. No tracheal deviation present. Cardiovascular: Normal rate, regular rhythm. Normal capillary refill in all 4 extremities. Pulmonary/Chest: Effort normal. No stridor. No respiratory distress. Abdominal: Soft.No distension. No mass. No tenderness. No rebound. No guarding. No CVA tenderness Musculoskeletal: RUE: Normal range of motion. No tenderness. No deformity LUE: Normal range of motion. No tenderness. No deformity RLE: Normal range of motion. No edema. No tenderness. No deformity LLE: Normal range of motion. No edema. No tenderness. No deformity Neurological: Alert and oriented to person, place, and time. Normal strength. CN II-VII intact. No sensory deficit. GCS eye subscore is 4. GCS verbal subscore is 5. GCS motor subscore is 6. Normal coordination Skin: She has a 5 x 7 oval shaped area of erythema on the skin of her left posterior knee/distal thigh in the top into the popliteal fossa. No palpable induration. No fluctuance. No overlying blistering. There is not really any streaks of redness to suggest that this was a poison alberto streak. This area would be most consistent with a localized reaction to an insect bite or sting such as a bee sting. Less likely would be a poison alberto rash. No fluctuance or abscess. Skin is otherwise warm and dry. No other rash noted. No pallor. Normal capillary refill. No hives. Psychiatric: Normal mood. Normal affect. Const: Vital Signs, click to edit/add: Vital Signs - 24 hr 10/04/23 03:50 Temperature 97.8 F Pulse Rate [Pulse Oximeter] 105 H Respiratory Rate 18 Blood Pressure [Ri ght Upper Arm] 180/95 H Pulse Oximetry 98 Oxygen Delivery Me thod Room Air Course Vital Signs Vital signs: Initial Vital Signs Temperature 97.8 F 10/04/23 03:50 Temperature Source Temporal Artery Scan 10/04/23 03:50 Pulse Rate 105 H 10/04/23 03:50 Pulse Rhythm Regular 10/04/23 03:50 Respiratory Rate 18 10/04/23 03:50 Blood Pressure 180/95 H 10/04/23 03:50 Blood Pressure Mean 123 H 10/04/23 03:50 Blood Pressure Position Sitting 10/04/23 03:50 Pulse Oximetry 98 10/04/23 03:50 Oxygen Delivery Method Room Air 10/04/23 03:50 Vital Signs Temperature 97.8 F 10/04/23 03:50 Pulse Rate 105 H 10/04/23 03:50 Respiratory Rate 18 10/04/23 03:50 Blood Pressure 180/95 H 10/04/23 03:50 Pulse Oximetry 98 10/04/23 03:50 Oxygen Delivery Method Room Air 10/04/23 03:50 Temperature 97.8 F 10/04/23 03:50 Pulse Rate 105 H 10/04/23 03:50 Respiratory Rate 18 10/04/23 03:50 Blood Pressure 180/95 H 10/04/23 03:50 Pulse Oximetry 98 10/04/23 03:50 Oxygen Delivery Method Room Air 10/04/23 03:50 Medical Decision Making MDM Narrative Medical decision making narrative: This patient presents for evaluation of concern for urinary frequency and dysuria as well as a painful itchy burning area on the skin of her her left posterior knee. One urinary. This clinically is consistent with a urinary tract infection. Urinalysis also suggests the infection with positive leukocyte esterase.. There has been no fever, back/flank pain or significant abdominal pain. There is no clinical evidence of pyelonephritis, appendicitis, colitis, diverticulitis or any intraabdominal catastrophe. She has a history of breast cancer but is no longer on chemotherapy (just hormonal therapy). No other diabetes or immunosuppression. She is appropriate for outpatient antibiotic therapy. The patient will be started on cephalexin 500 mg b.i.d. for 5 days for the infection. Return if increasing pain, vomiting, fever, or inability to tolerate the oral antibiotic. Follow up with primary physician is indicated if not improving in 2-3 days. In terms of the rash on her left posterior knee differential would include insect bite or sting, plant exposure, cellulitis, abscess, shingles, generalized allergic reaction, among others. At this point based on the location and appearance of the rash I would strongly favor that this is probable reaction to a insect sting. Much less likely would be poison alberto or toxic tendon exposure. No signs of systemic allergic reaction or anaphylaxis. Description of the burning pain and onset this afternoon while doing yd work at her cabin would argue against presence of cellulitis. Doubt Lyme disease or erythema migrans because that is typically not burning or painful and she has No known tick bite . Will treat supportively with Benadryl or ibuprofen at home, ice packs as well as topical hydrocortisone. Lab Data Labs: Lab Results 10/04/23 Range/Units 03:40 Urine Color Yellow (Yellow) Urine Appearance Slightly Cloudy A (Clear) Urine pH 7.0 (5.0-8.5) Ur Specific [place] 1.015 (1.000-1.030) Urine Protein Negative (Negative) Urine Glucose (UA) Negative (Negative) Urine Ketones Negative (Negative) Urine Blood Trace-intact A (Negative) Urine Nitrite Negative (Negative) Urine Bilirubin Negative (Negative) Urine Urobilinogen 0.2 (0.2-1.0) Ur Leukocyte Esterase 1+ A (Negative) Urine RBC 0-2 (0-2) Urine WBC 2-5 (0-5) Ur Squamous Epith Cells Few (None-Few) Urine Bacteria Few A (None) Discharge Plan Discharge Clinical Impression: UTI (urinary tract infection), Insect bite Patient Disposition: Home, Self-Care Condition: Stable Instructions: Urinary Tract Infection in Women (DC), Insect Bite or Sting (ED) Additional Instructions: To treat your bug bite, you can use an ice pack for 15-20 minutes at a time every few hours. You can use ibuprofen up to 600 mg per dose every 6 hours as needed. You can also use Benadryl 25 mg every 6 hours as needed for itching. Please apply the hydrocortisone cream twice daily to the area until the redness and swelling start to subside. To treat your urinary tract infection, take the antibiotic (cephalexin) twice daily for 5 days. If you have worsening in symptoms such as high fever, nausea and vomiting, weakness, kidney pain or flank pain, or any concerns, please come back to the ER right away to be rechecked. Typically it takes 2 days or so for antibiotics to help improve the symptoms of a UTI. However if you are not feeling substantially better within 3 days, please recheck with the ER with your doctor. Prescriptions: New cephalexin 500 mg capsule 500 mg PO Q12H Qty: 10 0RF hydrocortisone 2.5 % cream 1 applic topical BID PRNQty: 28 0RF No Action abemaciclib 150 mg tablet 150 mg PO DAILY Qty: 28 3RF loratadine [Claritin] 10 mg tablet 10 mg PO QDAY Qty: 7 0RF methylprednisolone [Medrol ([place])] 4 mg tablets,dose pack See Rx Instructions PO PER PKG DIR Qty: 21 0RF Rx Instructions: PO PER PKG DIR for 6 days, to be taken after Prolia for aches and pains. methylprednisolone [Medrol ([place])] 4 mg tablets,dose pack See Rx Instructions PO PER PKG DIR Qty: 21 0RF Rx Instructions: PO PER PKG DIR for 6 days loperamide 2 mg capsule 2 mg PO Q6H PRN cholecalciferol (vitamin D3) 25 mcg (1,000 unit) capsule 25 mcg PO QDAY metoprolol succinate 50 mg tablet extended release 24 hr 50 mg PO QDAY Qty: 90 3RF aspirin 81 mg capsule 81 mg PO DAILY multivitamin Tablet 1 tab PO DAILY omega-3 fatty acids 1,000 mg capsule 1,000 mg PO DAILY calcium phos,dibas-vitamin D3 77-400 mg-unit tablet PO biotin 10 mg tablet 10 mg PO DAILY letrozole 2.5 mg tablet 2.5 mg PO DAILY Qty: 90 3RF levothyroxine 100 mcg tablet 100 mcg PO QDAY Qty: 90 1RF Follow Up/Referrals: Sofia Manuel MD [Primary Care Provider] - Stand Alone Forms: [employer] Info Instructions
[2023-10-04 03:50] VITALS: BP 180/95; PULSE 105; RESP 18; TEMP 36.6; O2SAT 98; BMI 25.1
[2023-10-04 03:53] LABS: Appearance Urine Slightly Cloudy (Clear); Bilirubin Urine Negative (Negative); Blood Urine Trace-intact (Negative); Color Urine Yellow (Yellow); Glucose Urine Negative (Negative); Ketones Urine Negative (Negative); Leukocyte Esterase Urine 1+ (Negative); Nitrite Urine Negative (Negative); Protein Urine Negative (Negative); Specific Gravity Urine 1.015 (1.000-1.030); Urobilinogen Urine 0.2 (0.2-1.0)
[2023-10-04 04:00] LABS: RBC Urine 0-2 (0-2); Squamous Epithelial Cell Urine Few (None-Few)
[2023-10-04 04:01] LABS: Bacteria Urine Few
--- OUTSIDE RECORDS SUMMARY | 2023-10-04 04:08 | XMS_ITS | Encounter Summary ---
Author Organization [facility] Address [address] [place] [id number] Care Team Providers Care Ccie Name Role Phone Unavailable Primary Care Provider Unavailabl e Reason for Referral * Outpatient (Routine) - Authorized Specialty Diagnoses / Procedures Referred By Contac t Referred To Contact Radiation Oncology Jayshree Bautista APRN, C.NYareli, D.N.P., M.S.N. [address] [place] [phone] Smita Whitfield M.D. [address] [place] [phone] Referral ID Status Reason Start Date Expiration Date V isits Requested Visits Authorized [id number] Authorized 07/20/2023 01/18/2025 1 1 Scheduling Instructions Coordinate with other appointments * Outpatient (Routine) - Closed Specialty Diagnoses / Procedures Referred By Contac t Referred To Contact Radiation Oncology Margarita Fraga P.A.-C. [address] [place] [phone] [facility] Referral ID Status Reason Start Date Expiration Date Visits Re quested Visits Authorized [id number] Closed 03/31/2022 03/30/2025 1 1 Scheduling Instructions Coordinate with other appointments Reason for Visit * Outpatient (Routine) - Closed Specialty Diagnoses / Procedures Referred By Tamy naqvi Referred To Contact Radiation Oncology Margarita Fraga P.A.-C. [address] [place] [phone] [facility] Referral ID Status Reason Start Date Expiration Date Visits Re quested Visits Authorized [id number] Closed 03/31/2022 03/30/2025 1 1 Encounter Details Date Type Department Care Team (Latest Contact Info) Description 07/20/2023 2:33 PM CDT - 07/20/2023 4:37 PM CDT Hospital Encounter Department of Radiation Oncology in [place], [place] [address] [place] [phone] Smita Whitfield M.D. [address] [place] [phone] Malignant Neoplasm Of Breast Upper Outer Quadrant Female Left (HCC) (Primary Dx); Malignant Neoplasm Of Breast Recurrent In Original Breast Left (HCC) Social History Tobacco Use Types Packs/Day Years Used Date Smoking Tobacco: Never Smokeless Tobacco: Never Alcohol Use Standard Drinks/Week Comments Yes 2 (1 standard drink = 0.6 oz pur e alcohol) [facility] Utilities Answer Date Recorded In the past 12 months has [facility] [employer], [employer], oil, or water [employer] threatened to shut off services in your home? No 07/15/2023 Humiliation, Afraid, Rape, and Kick questionnair e Answer Date Recorded Within the last year, have y ou been afraid of your partner or ex-partner? No 02/21/2021 Within the last year, have y ou been humiliated or emotionally abused in other ways by your partner or ex-partner? No Within the last year, have y ou been kicked, hit, slapped, or otherwise physically hurt by your partner or ex-partner? No 02/21/2021 Within the last year, have y ou been raped or forced to have any kind of sexual activity by your partner or ex-partner? No 02/21/2021 Social Connection and Isolat ion Panel [NHANES] Answer Date Recorded In a typical week, how many times do you talk on the phone with family, friends, or neighbors? More than three times a week 03/27/2022 How often do you get togethe r with friends or relatives? Once a week 03/27/2022 How often do you attend chur or mu-ism services? More than 4 times per year 03/27/2022 Do you belong to any clubs o r organizations such as amish groups, unions, fraternal or athletic groups, or school groups? No 03/27/2022 How often do you attend meet ings of the clubs or organizations you belong to? More than 4 times per year 03/27/2022 Are you , , di vorced, , never , or living with a partner? 03/27/2022 AUDIT-C Answer Date Recorded Q1: How often do you have a drink containing alc ohol? 2-3 times a week 03/27/2022 Q2: How many drinks containi ng alcohol do you have on a typical day when you are drinking? 1 or 2 03/27/2022 Q3: How often do you have si x or more drinks on one occasion? Never 03/27/2022 Overall Financial Resource Strain (CARDIA) Answe r Date Recorded How hard is it for you to pa y for the very basics like food, housing, medical care, and heating? Not hard at all 02/21/2021 [facility] - Occupational Stress Questionnaire Answer Date Recorded Do you feel stress - tense, restless, nervous, or anxious, or unable to sleep at night because your mind is troubled all the time - these days? Only a little 03/27/2022 Exercise Vital Sign Answer Date Recorde d On average, how many days pe r week do you engage in moderate to strenuous exercise (like a brisk walk)? 0 days 07/15/2023 On average, how many minutes do you engage in exercise at this level? 0 min 07/15/2023 Hunger Vital Sign Answer Date Recorded Within the past 12 months, y ou worried that your food would run out before you got the money to buy more. Never true 07/15/19 24 Within the past 12 months, t he food you bought just didn't last and you didn't have money to get more. Never true 07/15/2023 PRAPARE - Transportation Answer Date Re corded In the past 12 months, has l ack of transportation kept you from medical appointments or from getting medications? No 11/2023 In the past 12 months, has l ack of transportation kept you from meetings, work, or from getting things needed for daily living? No 07/15/2023 Nutrition Answer Date Recorded On average, how many serving s of fruits and vegetables do you eat per day (serving size is equal to 1 cup or approximately the size of a tennis ball)? 0-2 07/15/2023 Dental Answer Date Recorded Dental: Regular Dentist Yes 03/08/19 Employment Answer Date Recorded Employment status Employed and actively working without restrictions 07/15/2023 Housing Stability Answer Date Recorded What is your living situation today? I have a [facility] place to live 07/15/2023 Education Answer Date Recorded What is the highest level of school you have completed or the highest degree you have received? 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 08/27/2021 acetaminophen (TYLENOL) 500 mg tablet Take 2 tablets (1,000 mg total) by mouth every 6 (six) hours as needed for pain (pain). Take 2 tablets up to four times daily for pain 100 tablet 04/28/[address] tablet Take 81 mg by mouth daily. 03/19/2014 calcium carbonate-vitamin D3 600-125 mg-unit tablet Take 1 tablet by mouth daily. denosumab (PROLIA) 60 mg/mL syringe Inject 60 mg under the skin every 6 (six) months. 01/22/2022 letrozole (FEMARA) 2.5 mg tablet Take 2.5 mg by mouth daily. 01/01/2021 levothyroxine (SYNTHROID, LEVOTHROID) 100 mcg tablet Take 1 tablet by mouth daily. 07/07/2023 loperamide (IMODIUM A-D) 2 mg capsule Take 2 mg by mouth 3 (three) times a day as needed for diarrhea. 11/19/2021 loratadine (CLARITIN) 10 mg tablet Take 1 tablet by mouth daily. 11/18/2020 metoprolol succinate (TOPROL-XL) 50 mg 24 hr tablet Take 1 tablet by mouth daily. 11/19/2021 multivitamin tablet Take 1 tablet by mouth daily. NaCl (Sterile Saline) 0.9 % irrigation Use sterile saline for wet to dry dressings for the chest. 2000 mL 1 05/29/2021 vljaz-0-rlp-epa-dpa-fi sh oil 1,050 mg(300 mg -675 mg-75 mg) capsule Take 1 capsule by mouth daily. 07/12/2012 pentoxifylline (TRENtal) 400 mg ER tablet Take 1 tablet (400 mg total) by mouth 3 (three) times a day with meals. 270 tablet 1 06/10/2021 UNABLE TO FIND Massage therapy for lymphedema and ROM subsequent to surgical scarring. Every 4 weeks as needed 11/19/2021 vitamin E 180 mg (400 Unit) capsule Take 1 capsule (400 Units total) by mouth daily. 90 capsule 1 06/10/2021 documented as of this encounter Progress Notes * Jayshree Bautista APRN, C.N.P., D.N.P., M.S.N. - 07/20/2023 3:30 PM CDT SUBJECTIVE REQUESTING PROVIDER Margarita Fraga P.A.-C. CHIEF COMPLAINT/REASON FOR VISIT Routine follow up for management of potential radiotherapy toxicities. Established patient of Smita Whitfield MD ([id number]) HISTORY OF PRESENT ILLNESS Mrs. Carolyn Cox is a pleasant 57 y.o. woman from [place], [place] who presents today with her husbandfor routine follow up approximately 2 years after completion of reirradiation to the bilateral chest sebastian and lymph nodes. This was completed in the context of bilateral breast invasive ductal carcinoma. She then received 5000 cGy proton radiotherapy in 25 fractions completed on 03/18/2021. Her full oncologic history can be reviewed in her chart. RADIOTHERAPY HISTORY: Treatment Course: 1p_BilatCWLN Plan ID Fractions Dose / Fraction (cGy) Dose Treated (cGy) Dose Planned (cGy) First Treatment Last Treatment Elapsed Days F1_pBilatCWLN 200 600 600 02/10/2021 02/12/2021 2 F4_pBilatCWLN 200 4400 4400 02/13/2021 03/18/2021 33 Treatment Site Summary 5000 5000 02/10/2021 03/18/2021 36 Course Summary 02/10/2021 03/18/2021 36 INTERVAL HISTORY: Mrs. Carolyn Cox reports overall she is feeling well. She has not had any setbacks from a wound healing. She continues to have bilateral upper extremity lymphedema with the left being worse than theright side. She continues to utilize a lymphedema pump occasionally at night as well as a compression garment to the left upper extremity during the day. Since completing radiation she was started onletrozole and most recently Verzenio; she notes diarrhea and nail changes as new, but tolerable side effects. She denies new skin concerns. She reports limited upper extremity range of motion however this is not worsening. Mrs. Carolyn Cox denies fevers, chills, sweats, new bony pain, unintended weight loss. No other major changes in her health or other systemic concerns or complaints. OBJECTIVE There were no vitals taken for this visit. Pain: 0/10 PHYSICAL EXAMINATION ECOG score: 1 - Restricted in physically strenuous activity but ambulatory and able to carry out work of a light or sedentary nature General: A well-appearing 57 y.o. female sitting comfortably in clinic in no acute distress. Breasts: The patient was examined in the seated position. Visual inspection reveals surgically absent breasts bilaterally. Well-healed incisions in the bilateral chest. No overlying skin changes suchas rash or skin breakdown across the breast. No concerning masses or nodularity in either breast. Bilateral nipples everted, no discharge. Lymph nodes: No palpable cervical, supraclavicular, infraclavicular, or axillary adenopathy. Extremities: Mild lymphedema on the right side. Moderate amount of lymphedema surrounding the left lymphedema sleeve. Moderately restricted range of motion in the upper extremities. No edema. Musculoskeletal: No pain with palpation of the spine. Neuro: Alert and oriented. No focal deficits. Gait is normal. ASSESSMENT / PLAN Diagnosis Plan 1. Malignant Neoplasm Of Breast Upper Outer Quadrant Female Left (HCC) 2. Malignant Neoplasm Of Breast Recurrent In Original Breast Left (HCC) It was a pleasure to see Mrs. Carolyn Cox and her in clinic today approximately 2 years after completion of radiotherapy to the bilateral chest wall and regional nodes. She is well recoveredfrom her radiation course. Clinically she remains well and is without evidence of breast cancer recurrence at this time. I was encouraged to continue with lymphedema sleeve as directed and stretchingexercises. We did discuss starting Trental and vitamin-E after she completes Verzenio next month, she will reach out via portal with the message if she wishes to start this. She also inquired about 4in 1 cupping therapy that her local massage therapist provided her with, we will look into this andget back to her if we can find any relevant recommendations. I reviewed breast cancer surveillance recommendations, including clinical breast exams She has ongoing follow-up scheduled with Medical Oncology every 6 months. Patient will continue to follow-up with Radiation Oncology annually. We will plan to see her back in one year. Please see Dr. Nahid goins regarding further discussion with patient. Carolyn Cox verbalized understanding and is in agreement with this plan. She has our contact information and was encouraged to reach out with any questions or concerns as they arise. EDUCATION: Ready to learn, no apparent learning barriers were identified. Explained diagnosis and treatment plan; patient expressed understanding of the content. I personally spent 47 minutes in care of the patient today. Time includes both non face to face andface to face patient care. Jayshree Bautista APRN, C.N.P., D.N.P., M.S.N. Associated attestation - Smita Whitfield M.D. - 07/23/2023 10:17 AM CDT I saw and evaluated the patient, participating in the peraza portions of the service. I reviewed Jeri's note. Please see her note for details. Briefly Ms. Cox returns today approximately 2-1/2 years since completion of bilateral preoperative chest wall and low axillary radiation in the setting of recurrent breast cancer with prior history of radiation for lymphoma in her use. Since I have seen her last, Ms. Cox is reportedly doing reasonably well. She has stable lymphedema of the left upper extremity. She has an expected feeling of tightness across the chest wall associated with her history of large resection flap closure skin grafting and repeat courses of radiation. She is able to maintain activity and enjoys good quality of life. She shared there was a recent wedding and her family, and updates on acquiring some land for family activities. She is on letrozole and Verzenio. Her extremity range of motion is somewhat limited. She would liketo resume more range of motion activities but feels comfortable with understanding what those are now. She would previously trialed Trental and vitamin-E with leg cramping. She may be interested in revisiting this which we discussed. She will have a PET-CT scan in August. Her clinical examination does not show any visible evidence of recurrence on the chest wall postsurgical changes are present chest wall fibrosis is noted. We plan to continue annual surveillance and encouraged her to reach out for questions. Smita Whitfield M.D. documented in this encounter Plan of Treatment Scheduled Referrals Name Type Priority Associated Diagnoses Order Schedule Radiation Oncology office visit (clinic) Outpatient Referral Routine Once for 1 Occurrences starting 07/20/2023 until 07/20/2023 Radiation Oncology office visit (clinic) Outpatient Referral Routine Expected: (Approximate), Expires: 10/19/2024 documented as of this encounter Visit Diagnoses Diagnosis Malignant Neoplasm Of Breast Upper Outer Quadrant Female Left (HCC)- Primary Malignant Neoplasm Of Breast Recurrent In Original Breast Left (HCC) documented in this encounter Additional Health Concerns Infection Onset Date Last Indicated Resolved Time Protective Environment 07/20/2023 07/20/2023 documented as of this encounter
--- OUTSIDE RECORDS SUMMARY | 2023-10-04 04:08 | XMS_ITS | Referral Summary ---
Author Organization [facility] Address [address] [place] [id number] Care Team Providers Care Deep Sea Diver Name Role Phone Unavailable Primary Care Provider Unavailabl e Source Comments Patient records contain information from all sites at [facility]. For routine questions regarding patient records, call [phone] during business hours, M-F 8:00 AM - 5:00 PM Central Time. Record requests for emergency care only can be directed to [phone] at any time.[facility] Encounters Date Type Department Care Team Description 07/20/2023 2:33 PM CDT - 07/20/2023 4:37 PM CDT Hospital Encounter Department of Radiation Oncology in [address] [address] Smita Whitfield M.D. Malignant Neoplasm Of Breast Upper Outer Quadrant Female Left (HCC) (Primary Dx); Malignant Neoplasm Of Breast Recurrent In Original Breast Left (HCC) 07/19/2023 8:00 AM CDT Clinical Communication Virtual Review in [address] [address] Blood Pressure from Last 3 Months Allergies Active Allergy Reactions Criticality Noted Date Comments Morphine Nausea And Vomiting Medium 01/14/2010 Prochlorperazine GI intolerance,Other (see comments),Nausea Only Medium 08/23/2020 Other reaction(s): Mental cloudiness Medications Medication Sig Dispensed Refills Start Date End Date Status aspirin [address] tablet Take 81 mg by mouth daily. 03/19/2014 Active calcium carbonate-vitamin D3 600-125 mg-unit tablet Take 1 tablet by mouth daily. Active lltjv-7-ive-epa-dpa -fish oil 1,050 mg(300 mg -675 mg-75 mg) capsule Take 1 capsule by mouth daily. 07/12/2012 Active multivitamin tablet Take 1 tablet by mouth daily. Active letrozole (FEMARA) 2.5 mg tablet Take 2.5 mg by mouth daily. 01/01/2021 Active acetaminophen (TYLENOL) 500 mg tablet Take 2 tablets (1,000 mg total) by mouth every 6 (six) hours as needed for pain (pain). Take 2 tablets up to four times daily for pain 100 tablet 04/28/2021 Active NaCl (Sterile Saline) 0.9 % irrigation Use sterile saline for wet to dry dressings for the chest. 2000 mL 1 05/29/2021 Active pentoxifylline (TRENtal) 400 mg ER tablet Take 1 tablet (400 mg total) by mouth 3 (three) times a day with meals. 270 tablet 1 06/10/2021 Active vitamin E 180 mg (400 Unit) capsule Take 1 capsule (400 Units total) by mouth daily. 90 capsule 1 06/10/2021 Active abemaciclib (Verzenio) 150 mg tablet Take 150 mg by mouth daily. 08/27/2021 Active denosumab (PROLIA) 60 mg/mL syringe Inject 60 mg under the skin every 6 (six) months. 01/22/2022 Active loperamide (IMODIUM A-D) 2 mg capsule Take 2 mg by mouth 3 (three) times a day as needed for diarrhea. 11/19/2021 Active loratadine (CLARITIN) 10 mg tablet Take 1 tablet by mouth daily. 11/18/2020 Active metoprolol succinate (TOPROL-XL) 50 mg 24 hr tablet Take 1 tablet by mouth daily. 11/19/2021 Active levothyroxine (SYNTHROID, LEVOTHROID) 100 mcg tablet Take 1 tablet by mouth daily. 07/07/2023 Active UNABLE TO FIND Massage therapy for lymphedema and ROM subsequent to surgical scarring. 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 Overview (04/22/2021): Per 2001 Jacobs note meningococcus vaccine, H Flu and MMR vaccines UTD Hypothyroidism Postsurgical 10/19/2011 Hypertension 09/15/2011 Unsteadiness Gait Disorder Non Orthopedic Social History Tobacco Use Types Packs/Day Years Used Date Smoking Tobacco: Never Smokeless Tobacco: Never Tobacco Cessation:Counseling Given: Not Answered Alcohol Use Standard Drinks/Week Comments Yes 2 (1 standard drink = 0.6 oz pur e alcohol) [facility] Utilities Answer Date Recorded In the past 12 months has e [employer], gas, oil, or water [employer] threatened to shut off services in your [...] 03/27/2022 How often do you attend chur ch or rastafari services? More than 4 times per year 03/27/2022 Do you belong to any clubs o r organizations such as holiness groups, unions, fraternal or athletic groups, or [...] and heating? Not hard at all 02/21/2021 [facility] - Occupational [...] your living situation today? I have a [facility] [place] place to live 07/15/2023 Education Answer Date Recorded What is the highest level of school you have completed or the highest degree you have received? Associate degree: occupational, technical, or vocational program 01/28/2021 Sex and Gender Information Value Date Recorded Sex Assigned at Female 01/27/2021 7:33 PM TRAFFIC RATE CLERK Gender Identity Female 01/27/2021 7:33 PM TRAFFIC RATE CLERK Sexual Orientation Bisexual 01/27/2021 7: 33 PM TRAFFIC RATE CLERK Last Filed Vital Signs Vital Sign Reading Time Taken Comments Blood Pressure 115/47 04/28/2021 11:03 AM TRAFFIC RATE CLERK Pulse 86 04/28/2021 11:03 AM TRAFFIC RATE CLERK Temperature 36.3 ??C (97.34 ??F) 04/28/2021 11:03 AM TRAFFIC RATE CLERK Respiratory Rate 16 04/28/2021 11:03 AM TRAFFIC RATE CLERK Oxygen Saturation 100% 04/28/2021 11:03 AM TRAFFIC RATE CLERK Inhaled Oxygen Concentration - - Weight 81.7 kg (180 lb 1.9 oz) 07/20/2023 3:32 P M CDT Height 171.1 cm (5' 7.36) 05/29/2021 12:29 PM C DT Body Mass Index 27.91 05/29/2021 12:29 PM CDT Plan of Treatment Not on file Medical Devices Implanted Type Area Double Corner Cutter Device Identifier Shelf Expiration Date Model / Serial / Lot Clp Hrzn Ti 6 Clp Sm Red - [id number] Implanted:Qty : 1 on 04/22/2021 by Melonie Baron D.O. at [facility] Hardware e.g. pins/screws/ rods [employer] / / Clp Hrzn Ti 6 Clp Sm Red - [id number] Implanted:Qty : 1 on 04/22/2021 by Melonie Baron D.O. at [facility] Hardware e.g. pins/screws/ rods [employer] / / Clp Hrzn Ti 6 Clp Sm Red - [id number] Implanted:Qty : 1 on 04/22/2021 by Melonie Baron D.O. at [facility] Hardware e.g. pins/screws/ rods [employer] [id number] / / Clp Hrzn Ti 6 Clp Sm Red - [id number] Implanted:Qty : 1 on 04/22/2021 by Delon Paz M.D. at [facility] Hardware e.g. pins/screws/ rods [employer] [id number] / / Clp Hrzn Ti 6 Clp Md Dick - [id number] Implanted:Qty : 1 on 04/22/2021 by Melonie Baron D.O. at [facility] Hardware e.g. pins/screws/ rods [employer] [id number] 05/28/2025 [id number] / / [id number] Clp Hrzn Ti 6 Clp Sm Red - [id number] Implanted:Qty : 1 on 04/22/2021 by Melonie Baron D.O. at [facility] Hardware e.g. pins/screws/ rods [employer] [id number] 08/28/2025076591 / / [id number] Clp Hrzn Ti 6 Clp Md Dick - [id number] Implanted:Qty : 1 on 04/22/2021 by Melonie Baron D.O. at [facility] Hardware e.g. pins/screws/ rods [employer] [id number] 05/28/2025 [id number] / / [id number] Clp Hrzn Ti 6 Clp Sm Red - [id number] Implanted:Qty : 1 on 04/22/2021 by Melonie Baron D.O. at [facility] Hardware e.g. pins/screws/ rods [employer] [id number] 08/28/2025395044 / / [id number] Clp Hrzn Ti 6 Clp Sm Red - [id number] Implanted:Qty : 1 on 04/22/2021 by Melonie Baron D.O. at [facility] Hardware e.g. pins/screws/ rods [employer] [id number] 08/28/2025 / [id number] Clp Hrzn Ti 6 Clp Sm Red - [id number] Implanted:Qty : 1 on 04/22/2021 by Melonie Baron D.O. at [facility] Hardware e.g. pins/screws/ rods [employer] [id number] 08/28/2025 / [id number] Clp Hrzn Ti 6 Clp Sm Red - [id number] Implanted:Qty : 1 on 04/22/2021 by Melonie Baron D.O. at [facility] Hardware e.g. pins/screws/ rods [employer] [id number] 08/28/2025F2100853 Clp Hrzn Ti 6 Clp Sm Red - [id number] Implanted:Qty : 1 on 04/22/2021 by Melonie Baron D.O. at [facility] Hardware e.g. pins/screws/ rods [employer] [id number] 12/15/2025K2100300 Clp Hrzn Ti 6 Clp Sm Red - [id number] Implanted:Qty : 1 on 04/22/2021 by Melonie Baron D.O. at [facility] Hardware e.g. pins/screws/ rods [employer] [id number] 12/22/2025K2100629 Clp Hrzn Ti 6 Clp Sm Red - [id number] Implanted:Qty : 1 on 04/22/2021 by Melonie Baron D.O. at [facility] Hardware e.g. pins/screws/ rods [employer] [id number] 12/22/2025K2100629 Clp Hrzn Ti 6 Clp Sm Red - [id number] Implanted:Qty : 1 on 04/22/2021 by Melonie Baron D.O. at [facility] Hardware e.g. pins/screws/ rods [employer] [id number] 08/28/2025 / / [id number] Clp Hrzn Ti 6 Clp Md Dick - [id number] Implanted:Qty : 1 on 04/22/2021 by Melonie Baron D.O. at [facility] Hardware e.g. pins/screws/ rods [employer] [id number] 05/28/2025 [id number] / / [id number] Clp Hrzn Ti 6 Clp Sm Red - [id number] Implanted:Qty : 1 on 04/22/2021 by Melonie Baron D.O. at [facility] Hardware e.g. pins/screws/ rods [employer] [id number] 08/28/2025 / / [id number] Clp Hrzn Ti 6 Clp Md Dick - [id number] Implanted:Qty : 1 on 04/22/2021 by Melonie Baron D.O. at [facility] Hardware e.g. pins/screws/ rods [employer] [id number] 09/15/2025368454 / / [id number] Clp Hrzn Ti 6 Clp Sm Red - [id number] Implanted:Qty : 1 on 04/22/2021 by Melonie Baron D.O. at [facility] Hardware e.g. pins/screws/ rods [employer] [id number] 12/22/2025 / / [id number] Clp Hrzn Ti 6 Clp Sm Red - [id number] Implanted:Qty : 1 on 04/22/2021 by Melonie Baron D.O. at [facility] Hardware e.g. pins/screws/ rods [employer] [id number] 12/15/2025 / / [id number] Clp Hrzn Ti 24 Clp Md Dick - [id number] Implanted:Qty : 1 on 04/22/2021 by Melonie Baron D.O. at [facility] Hardware e.g. pins/screws/ rods [employer] [id number] / / Clp Hrzn Ti 6 Clp Sm Red - [id number] Implanted:Qty : 1 on 04/22/2021 by Delon Paz M.D. at [facility] Hardware e.g. pins/screws/ rods [employer] [id number] 12/08/2025 [id number] / / [id number] Clp Hrzn Ti 6 Clp Sm Red - [id number] Implanted:Qty : 1 on 04/22/2021 by Delon Paz M.D. at [facility] Hardware e.g. pins/screws/ rods [employer] [id number] 08/28/2025 756594 / / [id number] Clp Hrzn Ti 24 Clp Md Dick - [id number] Implanted:Qty : 1 on 04/22/2021 by Delon Paz M.D. at [facility] Hardware e.g. pins/screws/ rods [employer] [id number] 01/12/2026 [id number] / / [id number] Clp Hrzn Ti 6 Clp Sm Red - [id number] Implanted:Qty : 1 on 04/22/2021 by Melonie Baron D.O. at [facility] Hardware e.g. pins/screws/ rods [employer] [id number] / / Clp Hrzn Ti 6 Clp Sm Red - [id number] Implanted:Qty : 1 on 04/22/2021 by Melonie Baron D.O. at [facility] Hardware e.g. pins/screws/ rods [employer] [id number] / / Clp Hrzn Ti 6 Clp Sm Red - [id number] Implanted:Qty : 1 on 04/22/2021 by Melonie Baron D.O. at [facility] Hardware e.g. pins/screws/ rods [employer] [id number] / / Clp Hrzn Ti 6 Clp Sm Red - [id number] Implanted:Qty : 1 on 04/22/2021 by Melonie Baron D.Genny. at [facility] Hardware e.g. pins/screws/ rods [employer] [id number] / / Clp Hrzn Ti 6 Clp Sm Red - [id number] Implanted:Qty : 1 on 04/22/2021 by Delon Paz M.D. at [facility] Hardware e.g. pins/screws/ rods [employer] / / Clp Hrzn Ti 6 Clp Sm Red - [id number] Implanted:Qty : 1 on 04/22/2021 by Melonie Baron D.O. at [facility] Hardware e.g. pins/screws/ rods [employer] / / Explanted Type Area Double Corner Cutter Device Identifier Shelf Expiration Date Model / Serial / Lot [employer] 600 - [id number] Implanted:Qty: 2 on 12/10/2000 Explanted:Qty: 2 on 04/22/2021 by Melonie Baron D.O. at [facility] Breast Implant [employer] Description:Device Manufactu rer - [employer]. Device Status Text - [id number]. Implanted Port Single Lumen-08/22/2020 Implanted: 021 (Quantity not on file) Explanted: 022 (Quantity not on file) Implanted Port Single Lumen Right: Chest Description:Care Everywhere: [facility]: Summary of Episode Note received on 02/06/2021: Implanted Devices Device Date Implanted/Device Details PowerPort [employer]. Implantable Port August 22, 2020 DARIEL: [id number] Issuing Agency: [id number] Device Id: [id number] Expiration Date: 2021-12-05 Lot Number: [id number] Procedures Procedure Name Priority Date/Time Associated Diagnosis Comments OUTSIDE NM PET Routine 08/12/2023 3:45 PM CDT from Last 3 Months Results * PET skull to mid thigh-Outside NM Pet (08/12/2023 3:45 PM CDT) 08/12/2023 3:42 PM CDT Narrative IIMS - 08/12/2023 6:14 PM CDT This order has been created and auto-finalized to support the import of outside images. If available, original interpretation can be found on the Media Tab in Chart Review, in Document Viewer, as an image in QREADS or as an Addendum. If a re-interpretation or overread is required please follow defined workflow.?? Provider Not In System IMG NM PROCEDURES IIMS NA from Last 3 Months Additional Health Concerns Infection Onset Date Last Indicated Protective Environment 07/20/2023 4 Advance Directives For more information, please contact: [phone] * Full Code (Latest Code Status on File) Date Activated Date Inactivated Comments 04/22/2021 5:45 AM 04/28/2021 1:44 PM Question Answer Comments Full Code: Not Discussed Due to: Not medically appropriate
--- OUTSIDE RECORDS SUMMARY | 2023-10-04 04:08 | XMS_ITS | Clinical Summary ---
Author Organization [facility] Address [place], [place] [address] Care Team Providers Care Taxi Proprietor Name Role Phone Sofia Manuel MD Primary Care Provider [phone] Allergies Active Allergy Reactions Criticality Noted Date Comments Morphine Nausea And Vomiting 01/14/2010 Prochlorperazine Dizziness,GI Upset,Confusion,Nausea Only Medium 08/23/2020 Other reaction(s): Mental cloudiness Medications Medication Sig Dispensed Refills Start Date End Date Status multivitamin (MVI) tablet Take 1 tablet by mouth once daily. Daily supplement Active CALCIUM CARBONATE/VITAMIN D3 (CALCIUM 600 + D ORAL) Take by mouth once daily. Active omega-3 fatty acids-vitamin E (FISH OIL) 1,000 mg cap Take 1 capsule by mouth once daily. 1 daily 0 07/12/2012 Active aspirin (ECOTRIN) 81 mg enteric coated tablet Take 1 tablet by mouth once daily with a meal. 0 03/19/2014 Active loratadine (CLARITIN) 10 mg tablet Take 1 Tablet (10 mg) by mouth once daily. 0 11/18/2020 Active letrozole (FEMARA) 2.5 mg tablet 01/01/2021 Active Verzenio 150 mg tablet Take 150 mg by mouth once daily. 08/27/2021 Active loperamide (IMODIUM) 2 mg capsule Take 4mg by mouth with 1st loose stool, then 2mg with each subsequent loose stool. Max 16 mg in 24 hrs 0 11/19/2021 Active metoprolol succinate (TOPROL XL) 50 mg sustained-release tabletIndications: HTN (hypertension) Take 1 Tablet (50 mg) by mouth once daily. 93 Tablet 3 11/19/2021 Active medication order composerIndication s:Lymphedema Massage therapy for lymphedema and ROM subsequent to surgical scarring. Every 4 weeks as needed 24 unit 11/19/2021 Active denosumab (PROLIA) 60 mg/mL injection Inject 60 mg subcutaneous EVERY 26 WEEKS. Oncology does injection 1 mL 01/22/2022 Active levothyroxine (SYNTHROID) 125 mcg tabletIndications: Hypothyroidism (acquired) Take 1 Tablet (125 mcg) by mouth before breakfast. 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 Left subclavian artery occlusion 03/05/2014 Overview: See ultrasound 03/05/14, referral to Vascular made. Skin lesion of scalp 07/19/2013 Papillary thyroid carcinoma 10/19/2011 Overview: 0.4 cm tumor, follicular variant surgery 09/21/11 MACIS score = 3.8 (< 1% 20-year cancer-related mortality) no postoperative radioiodine needed yearly thyroglobulin recommended given patient's history of XRT for childhood lymphoma. If < 0.5, no need to follow-up with endocrine. Goal TSH is normal range. Postoperative hypothyroidism 10/19/2011 HTN (hypertension) 09/15/2011 Routine general medical exam ination at a health care facility 06/18/2010 Overview: dexa normal 01/2010. Will recheck age 50. Aura Delgadillo M.D. 07/12/2012 8:37 AM Also colon cancer screening age 50 Vitamin D deficiency 06/18/2010 Malignant neoplasm of breast (female), unspecifi ed site 02/15/2007 Overview: left breast, invasive ductal carcinome , grade 1 of 3, forming multiple discrete masses in the breast. ER and TN positive, sentinal node negative. Treated with bilateral mastectomy and adjuvant chemotherapy with cytoxan, methotrexate and 5-FOLLOW UP, followed by 5 years of tamoxifen. Also had reconstruction with saline implants. needs antibiotics prophyoasix for dental, oral and upper resp tract procedures. amox 2 gms 1 hour prior to procedure. , same for genitourinary and gastrointestinal procedures. 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, treated with laparotomy, splenectomy and mantle radiation HTN (hypertension) Resolved Problems Problem Noted Date Diagnosed Date Resolved Date Severe sepsis 03/12/2017 03/22/2017 S/P thyroidectomy 10/08/2011 10/19/2011 MALIG NEOPLASM BREAST-RECURRENT 06/20/2009 03/11/2017 colloid nodule right thyroid 02/15/2007 10/19/2011 Overview: Fine needle biopsy in 12/2002, also 1995 Immunizations Name Administration Dates Next Due AMB INFLUENZA, IIV4 (AGE=>6M OS) MDV (Flu Clinic Only) 12/24/2016 COVID-19 vaccine ([employer] NTech 30mcg/0.3mL) 12YO+ BIVALENT PF, MDV 11/19/2021 COVID-19 vaccine ([employer] NTech 30mcg/0.3mL) PF, MDV 01/01/2021 Influenza A (H1N1), Inactiva kirti (Age >=3 Years) 02/12/2009 Influenza, IIV3 (Age 6-35 mos) 7,12/23/2015,11/28/2014,2008 Influenza, IIV3 (Age >=3 years) 12/17/19 21,12/02/2017,11/29/2014,2013,12/22/2012,12/25/2011,12/16/2009,1 04/15/2008,01/27/2006,01/17/2005, 004,12/20/2002 Influenza, IIV4 12/16/2020, 0,12/15/2018,2017,12/22/2012 Influenza,CCIIV4 PRESERV FREE 12/26/2021 Pneumococcal Poly,23-Valent (Pneumovax) 09/22/2017 Pneumococcal conj 13-Valent (Prevnar 13) 09/16/2015 Td (Age >=7 Years) 12/31/2000 Tdap 12/31/2020,06/18/2010 Zoster (Shingrix-RZV, recombinant) 01/06/2018, Family History Medical History Relation Name Comments Hyperlipidemia Brother Psychiatric illness Brother on antid epressants Heart Disease Father pacemaker Stroke Father Heart Disease Mother atrial fibrila tion Other Mother parkinsons dise ase Thyroid Disease Mother removed Anesthesia Problem No Family History Blood Disease No Family History Cancer-breast No Family History Cancer-colon No Family History Relation Name Status Comments Brother Alive Father Alive Mother Alive Social History Tobacco Use Types Packs/Day Years Used Date Smoking Tobacco: Never Smokeless Tobacco: Never Tobacco Cessation:Counseling Given: Yes Alcohol Use Standard Drinks/Week Comments Not Currently 2 (1 standard drink = 0.6 oz pur e alcohol) couple times a week PHQ-2 Answer Date Recorded PHQ-2 TOTAL SCORE 0 11/19/2021 Social Connections Answer Date Recorded Frequency of Communication with Friends and Fami ly Not on file 02/27/2021 Financial Resource Strain Answer Date R ecorded Difficulty of Paying Living Expenses Not on file 02/27/2021 Difficulty of Paying Living Expenses Not on file 02/27/2021 Sex and Gender Information Value Date Recorded Sex Assigned at Female 08/17/2020 12:30 PM CDT Gender Identity Female 08/17/2020 12:30 PM CDT Sexual Orientation Straight 08/17/2020 12 :30 PM CDT Obstetrics History Para Term AB IAB SAB Ectopic Multiple Livin g Live Births 3 3 3 3 Date Outcome GA Total Labor Labor/2nd/3rd Weight Sex Type Anes PTL Anayeli A1 A5 Name Clin Term Term Term Last Filed Vital Signs Vital Sign Reading Time Taken Comments Blood Pressure 113/66 03/06/2022 12:53 PM CONTENT DESIGNER Pulse 90 03/06/2022 12:53 PM CONTENT DESIGNER Temperature 36.6 ??C (97.9 ??F) 12/31/2020 4:30 PM CD T Respiratory Rate 20 03/17/2017 2:13 PM CONTENT DESIGNER Oxygen Saturation 100% 03/06/2022 12:53 PM CONTENT DESIGNER Inhaled Oxygen Concentration - - Weight 76.7 kg (169 lb) 03/06/2022 12:53 PM CONTENT DESIGNER Height 176.5 cm (5' 9.5) 03/06/2022 12:53 PM CS T Body Mass Index 24.6 03/06/2022 12:53 PM CONTENT DESIGNER Plan of Treatment Health Maintenance Due Date Last Done Comments Pneumococcal series for age 6-64 (3 of 3 - PPSV23 or PCV20) 09/22/2022 09/22/2017, 09/16/2015 COVID-19 vaccine series ( season) 2022 11/19/2021, 01/01/2021, 12/11/2020 Depression screening for age 12+ 11/19/2022 11/19/2021, 11/18/2020, 11/18/2020, Additional history exists BMI (ht and wt on same day) for age 18+ 03/06/2023 03/06/2022, 01/22/2022, 11/19/2021, Additional history exists Pap test for age 21-65 09/27/2023 9, 09/26/2018, 09/16/2015, Additional history exists Influenza for age 50-64 11/07/2023 12/27/19 22, 12/16/2020, 12/16/2020, Additional history exists Lipids for age 45-75 11/19/2026 11/19/2021, 09/26/2018, 09/21/2016, Additional history exists Colonoscopy through age 75 05/30/2028 05/30/2018 Tetanus booster 12/31/2030 12/31/2020, 06/06, 12/31/2000 HIV for age 15-65 Completed 03/17/2017 Hepatitis C screening for ag e 18-79 Completed 03/17/2017 Fecal testing non-DNA (FIT,FOBT,iFOBT) for age 45-75 Discontinued 08/30/2017 Zoster (shingles) series for age 50+ Completed 01/06/2018, 11/03/2017 Tdap Completed 12/31/2020, 06/18/2010 Medical Devices Implanted Type Area Harness Maker Device Identifier Shelf Expiration Date Model / Serial / Lot Graft Vasc 8mm 30cmmm Pipe [place] - [id number] Implanted:Qty: 1 on 04/09/2014 by Lg Russo MD at [facility] Grafts Left: Carotid Artery [employer] 03/07/2017 [id number] / / [id number] implnt Mammary [id number] [[id number]] Implanted:Qty: 1 on 08/27/2009 at [facility] Explanted:at [facility] (Quantity not on file) Right: Breast [employer] [id number] C# / [id number] / [id number] implnt Mammary [id number] [[id number]] Implanted:Qty: 1 on 08/27/2009 at [facility] Explanted:at [facility] (Quantity not on file) Left: Breast [employer] [id number] C# / [id number] / [id number] Procedures Procedure Name Priority Date/Time Associated Diagnosis Comments LIPID PANEL W REFLEX MEASURED LDL Routine 11/19/2021 9:06 AM CDT HTN (hypertension) TERRA [employer] THIN PREP PAP SCREEN IMAGED Routine 09/26/2018 8:35 AM CDT Pap smear for cervical cancer screening SCAN-COLONOSCOPY 05/30/2018 2:30 PM CDT OCCULT BLOOD IFOBT STOOL Routine 08/30/2017 11:37 AM CDT Special screening for malignant neoplasms, colon ANTI HIV 1/2 Early AM 03/17/2017 6:55 AM CONTENT DESIGNER ANTI HCV Early AM 03/17/2017 6:55 AM CONTENT DESIGNER from Last 3 Months or Most Recently Relevant to Health Maintenance Results * (ABNORMAL) LIPID PANEL W REFLEX MEASURED LDL (11/19/2021 9:06 AM CDT) CHOLESTEROL,TOTAL 210(H) 100 - 199 mg/dL 11/19/2021 5:15 PM CDT [facility] TRIGLYCERIDES 169(H) <150 mg/dL 11/19/2021 5:15 PM CDT [facility] HDL CHOLESTEROL 58 >40 mg/dL 5:15 PM CDT [facility] NON-HDL CHOLESTEROL 152(H) <145 mg/dl 11/19/2021 5:15 PM CDT [facility] CHOL/HDL RATIO 3.62 <4.50 11/19/2021 5:15 PM CDT [facility] LDL CHOLESTEROL 118 <=130 mg/dL 11/19/2021 5:15 PM CDT [facility] VLDL CHOLESTEROL 34(H) <=30 mg/dL 11/19/2021 5:15 PM CDT [facility] PROVIDER ORDERED STATUS RANDOM 11/19/2021 5:15 PM CDT [facility] Blood BLOOD SPECIMEN / Unknown Butterfly / Unknown 11/19/2021 9:06 AM CDT 11/19/2021 9:07 AM CDT Jeanette Merino MD CHEMISTRY [facility] [address] [place] [address], * TERRA COTTA ROOFER THIN PREP PAP SCREEN IMAGED (09/26/2018 8:35 AM CDT) Case Report Gynecologic Cytology Report ? Case: [id number] ? Authorizing Provider: ??Jeanette Merino MD ? Collected: ? 09/26/2018 0835 ? Ordering Location: ? [facility] ?? Received: ?09/26/2018 1441 ? Clinic ? First Screen: ?Maria L Lim ? Specimen: ?TERRA COTTA ROOFER ThinPrep Vial Screening, Cervical ? 10/05/2018 12:05 PM CDT [facility] INTERPRETATION/ RESULT NEGATIVE FOR INTRAEPITHELIAL LESION OR MALIGNANCY (NIL) (none) 10/05/2018 12:05 PM CDT [facility] IMEN ADEQUACY Satisfactory for evaluation Endocervical component present 10/05/2018 12:05 PM CDT [facility] HPV REQUEST HPV and PAP 10/05/2018 12:05 PM CDT [facility] Date of LMP n/a 10/05/2018 12:05 PM CDT [facility] Last Pap Date 09/16/15 10/05/2018 12:05 PM CDT [facility] Last Pap Result NIL 9 12:05 PM CDT [facility] Abnormal Pap or [place] Bx in last 5 years No 10/05/2018 12:05 PM CDT [facility] Menstrual Status Postmenopausal 10/05/2018 12:05 PM CDT [facility] [place] Bx Done Today No 10/05/2018 12:05 PM CDT [facility] Additional Information None given 10/05/2018 12:05 PM CDT [facility] Automated Review Successful 10/05/2018 12:05 PM CDT [facility] Comment:Specimen processed s uccessfully by automated land surveying manager device, ThinPrep Imaging System, [employer] ANCILLARY TESTING TERRA COTTA ROOFER HPV Ordered, Please see separate report 10/05/2018 12:05 PM CDT [facility] Note The pap test is a screening technique, not a diagnostic procedure. ??It is used primarily to screen for squamous cancers and precursor lesions. ??Published studies have shown that it is subject to both false negative and false positive results. ??The pap test should not be used as the sole means to diagnose or exclude pre-malignant and malignant lesions. Cytology is screened and interpreted at [facility] - [address], [place] [address] and [facility] - [address]; [place] [address] and [facility] - [address]; [place] [address] and [facility] [address]; [place] [address] 10/05/2018 12:[address] [facility] Other (Cervical) Non-Blood / Unknown 09/26/2018 8:35 AM CDT 09/26/2018 2:41 PM CDT Jeanette Merino MD PATHOLOGY/CYTOLOGY [facility] [address] [place] [address], [place] * SCAN-COLONOSCOPY (05/30/2018 2:30 PM CDT) Narrative Procedure Note Rufus Casarez MD - 05/30/2018 1:14 PM CDT [facility] [address], [address], [place] [address] Patient Name: Carolyn Cox Gender: Female Exam Date: 05/30/2018 Visit Number: [id number] Age: 52 Years 9 Months Date of : 1965 Attending MD: Rufus Casarez MD Medical Record#: [id number] ----- Procedure: Colonoscopy Indications: Colorectal cancer screening Referring MD: Michael Headley MD Primary MD: Jeanette Merino MD Medications: Admitting Medications: 0.9% Normal Saline at [facility] Procedure Medications: Patient received monitored anesthesia care. Complications: No immediate complications Procedure: An examination of the heart and lungs was performed and found to be withinacceptable limits. The patient was therefore deemed a reasonablecandidate for endoscopy and monitored anesthesia care. The risks and benefits of the procedure were explained to the patient.After obtaining informed consent, the patient received monitoredanesthesia care and I passed the scope without difficulty via the rectum to the ileum. The appendiceal orificeand ic valve were identified. The scope was retroflexed during theexamination The quality of the prep was excellent (Miralax/Gatorade/2tablets Bisacodyl/Magnesium Citrate). This was a complete examination throughout the entire colon. Findings: Normal finding. Location - ileum. Anal canal: external hemorrhoid(s) The entire colon was normal. Impression: Screening Colonoscopy Plan Repeat colonoscopy in 10 years. If you have signs or symptoms of lower GI illness or a new diagnosis ofcolon cancer in an immediate family member, you should contact your GIprovider or your primary provider to discuss whether your next examshould be repeated sooner. We will attempt to contact you at appropriate intervals via U.S. mail. Wemay not be able to find you or contact you at that time, therefore youshould know that the responsibility for following our recommendation restswith you. If you don't hear from us at the time your procedure is due,please contact our office to schedule an appointment. If your contactinformation should change, please contact our office so that we can updateyour records. Electronically signed by: Rufus Casarez MD 05/30/2018 Medications: Medication Dose Sig Description PRN Status PRN Reason Comments Aspir-Low 81 mg tablet,delayed release 81 mg take 1 tablet by oral routeevery day N taking as directed Calcium 600 + D(3) 600 mg calcium-200 unit capsule 600 mg calcium-200 unittake 2 by Oral route every day N taking as directed Fish Oil 100 mg-160 mg-1,000 mg capsule 100 mg-160 mg-1,000 mg take 1Capsule by Oral route 2 times every day N taking as directed hydrochlorothiazide 25 mg tablet 25 mg take 1 tablet by oral route everyday N taking as directed levothyroxine 112 mcg tablet 112 mcg take 1 tablet by oral route everyday N taking as directed metoprolol tartrate 50 mg tablet 50 mg take 1 tablet by ORAL route 2 timesevery day with meals N taking as directed multivitamin tablet take 1 tablet by oral route every day with food Ntaking as directed Vitamin D3 1,000 unit capsule 1,000 unit take 1 by Oral route every day Ntaking as directed Allergies: Medication Name Ingredient Reaction Comment MORPHINE Vital Signs: Date Time Systolic Diastolic Height Weight BMI 05/30/2018 151 PM 133 60 70 in 185.00 26.50 Race: Ethnicity: Not or Preferred Language: Estonian cc: Jeanette Merino MD cc: Michael Headley MD [facility] [phone] Rufus Casarez MD OTHER * OCCULT BLOOD IFOBT STOOL [[id number]] (08/30/2017 11:37 AM CDT) STOOL BLOOD ,IFOBT Negative Negative 08/31/2017 10:51 AM CDT [facility] Stool STOOL SPECIMEN / Unknown Non-Blood / Unknown 08/30/2017 11:37 AM CDT 08/30/2017 11:38 AM CDT Jeanette Merino MD LABORATORY [facility] [address] [place] [address], * Anti-hepatitis C AM (03/17/2017 6:55 AM CONTENT DESIGNER) HEPATITIS C ANTIBODY Non-Reacti ve Non-Reacti ve 03/17/2017 7:47 AM CONTENT DESIGNER [facility] Blood BLOOD SPECIMEN / Unknown Butterfly / Unknown 03/17/2017 6:55 AM CONTENT DESIGNER 03/17/2017 7:03 AM CONTENT DESIGNER Narrative [facility] - 03/17/2017 7:47 AM CONTENT DESIGNER Antibodies to HCV not detected; does not exclude the possibility of exposure to HCV. Ty Martinez MD SEND OUTS Performing Organization Address City/[facility]/ZIP Co de Phone Number [facility] [address] [place] [address], * HIV 1&2 TODAY (03/17/2017 6:55 AM CONTENT DESIGNER) HIV-1/HIV-2 ANTIBODY Non-Reacti ve Non-Reacti ve 03/17/2017 7:51 AM CONTENT DESIGNER [facility] Blood BLOOD SPECIMEN / Unknown Butterfly / Unknown 03/17/2017 6:55 AM CONTENT DESIGNER 03/17/2017 7:03 AM CONTENT DESIGNER Narrative [facility] - 03/17/2017 7:51 AM CONTENT DESIGNER HIV-1 p24 and HIV-1/HIV-2 Ab not detected Ty Martinez MD SEND OUTS [place] [facility] [address] [place] [address], from Last 3 Months or Most Recently Relevant to Health Maintenance Advance Directives * Full Code (Latest Code Status on File) Date Activated Date Inactivated Comments 03/11/2017 10:05 PM 03/17/2017 5:31 PM * Full Code Date Activated Date Inactivated Comments 04/09/2014 11:24 AM 04/11/2014 3:40 PM * Full Code Date Activated Date Inactivated Comments 04/09/2014 6:10 AM 04/09/2014 11:24 AM * Full Code Date Activated Date Inactivated Comments 09/21/2011 9:50 AM 09/22/2011 4:29 PM * Full Code Date Activated Date Inactivated Comments 09/21/2011 2:13 AM 09/21/2011 9:50 AM Care Teams Taxi Proprietor Relationship Specialty Start Date End Date Sofia Manuel MD [address] [place] [address] PCP - General Internal Medicine 12/14/22
--- OUTSIDE RECORDS SUMMARY | 2023-10-04 04:08 | XMS_ITS | Clinical Summary ---
Author Organization [facility] Address [address] [place] [address] Care Team Providers Care Swimming Pool Maintenance Supervisor Name Role Phone Unavailable Primary Care Provider Unavailabl e Source Comments Patient records contain information from all sites at [facility]. For routine questions regarding patient records, call [phone] during business hours, M-F 8:00 AM - 5:00 PM Central Time. Record requests for emergency care only can be directed to [phone] at any time.[facility] Allergies Active Allergy Reactions Criticality Noted Date Comments Morphine Nausea And Vomiting Medium 01/14/2010 Prochlorperazine GI intolerance,Other (see comments),Nausea Only Medium 08/23/2020 Other reaction(s): Mental cloudiness Medications Medication Sig Dispensed Refills Start Date End Date Status aspirin [address] tablet Take 81 mg by mouth daily. 03/19/2014 Active calcium carbonate-vitamin D3 600-125 mg-unit tablet Take 1 tablet by mouth daily. Active cbzdf-6-izd-epa-dpa -fish oil 1,050 mg(300 mg -675 mg-75 [...] Hypertension 09/15/2011 Unsteadiness Gait Disorder Non Orthopedic Encounters Date Type Department Care Team Description 07/20/2023 2:33 PM CDT - 07/20/2023 4:37 PM CDT Hospital Encounter Department of Radiation Oncology in [place], [place] [address] [place] [address] Smita Whitfield M.D. Malignant Neoplasm Of Breast Upper Outer Quadrant Female Left (HCC) (Primary Dx); Malignant Neoplasm Of Breast Recurrent In Original Breast Left (HCC) 07/19/2023 8:00 AM CDT Clinical Communication Virtual Review in [place], [place] [address] [place] [address] Blood Pressure from Last 3 Months Social History Tobacco Use Types Packs/Day Years Used Date Smoking Tobacco: Never Smokeless Tobacco: Never Tobacco Cessation:Counseling Given: Not Answered Alcohol Use Standard Drinks/Week Comments Yes 2 (1 standard drink = 0.6 oz pur e alcohol) [facility] [employer] Answer Date Recorded In the past 12 months has e [employer], gas, oil, or water [employer] threatened to shut off services in your [...] often do you attend chur ch or worship services? More than 4 times per year 03/27/2022 Do you belong to any clubs o r organizations such as faith groups, unions, fraternal or athletic groups, or [...] and heating? Not hard at all 02/21/2021 [facility] - Occupational Stress [...] Sex Assigned at Female 01/27/2021 7:33 PM NEWS CORRESPONDENT Gender Identity Female 01/27/2021 7:33 PM NEWS CORRESPONDENT Sexual Orientation Bisexual 01/27/2021 7: 33 PM NEWS CORRESPONDENT Last Filed Vital Signs Vital Sign Reading Time Taken Comments Blood Pressure 115/47 04/28/2021 11:03 AM NEWS CORRESPONDENT Pulse 86 04/28/2021 11:03 AM NEWS CORRESPONDENT Temperature 36.3 ??C (97.34 ??F) 04/28/2021 11:03 AM NEWS CORRESPONDENT Respiratory Rate 16 04/28/2021 11:03 AM NEWS CORRESPONDENT Oxygen Saturation 100% 04/28/2021 11:03 AM NEWS CORRESPONDENT Inhaled Oxygen Concentration - - Weight 81.7 kg (180 lb 1.9 oz) 07/20/2023 3:32 P M CDT Height 171.1 cm (5' 7.36) 05/29/2021 12:29 PM C DT Body Mass Index 27.91 05/29/2021 12:29 PM CDT Plan of Treatment Health Maintenance Due Date Last Done Comments CT Colonography 1965 Cervical Cancer Screening 1965 Cologuard 1965 FIT 1965 HIV Screening 1965 Hepatitis C Screening 1965 Office Visit for Blood Pressure Check / Re-check 1965 HIB Vaccines (1 of 1 - Risk 1-dose series) 11/07/1966 Meningococcal Vaccine (1 - Risk 2-dose series) 08/08/1967 MenB Vaccine (1 of 4 - Increased Risk) 08/08/1975 Hepatitis B Vaccines (1 of 3 - 19+ 3-dose series) 1984 Pneumococcal vaccine (0-64 years) (3 of 3 - PPSV23 or PCV20) 09/22/2022 09/22/2017, 09/16/2015 COVID-19 Vaccine ( season) 2022 11/19/2021, 01/01/2021, 12/11/2020 Thyroid Stimulating Hormone (TSH) test for thyroid function 12/29/2022 12/29/2021, 11/19/2021, 12/31/2020, Additional history exists Depression Screening (Annual PHQ-2) 03/08/2023 Influenza Vaccine (#1) 2023 , 12/26/2021, 12/16/2020, Additional history exists Fasting Glucose for Diabetes Screening 11/19/2024 11/19/2021, 12/31/2020, 09/26/2018, Additional history exists Lipid (Cholesterol) Screening 11/19/2026 11/19/2021, 09/26/2018 Colonoscopy 05/30/2028 05/30/2018 Colorectal Cancer Screening 05/30/2028 DTaP,Tdap,and Td Vaccines (3 - Td or Tdap) 12/31/2030 12/31/2020, 06/18/2010 Zoster Vaccines Completed 01/06/2018, 11/03/2017 HPV Vaccines Aged Out No longer eligi ble based on patient's age to complete this topic Medical Devices Implanted Type Area Presales Consultant Device Identifier Shelf Expiration Date Model / Serial / Lot Clp Hrzn Ti 6 Clp Sm Red - [id number] Implanted:Qty : 1 on 04/22/2021 by Melonie Baron D.O. at [facility] Hardware e.g. pins/screws/ rods [employer] / / Clp Hrzn Ti 6 Clp Sm Red - [id number] Implanted:Qty : 1 on 04/22/2021 by Melonie Baron D.O. at [facility] Hardware e.g. pins/screws/ rods [employer] / / Clp Hrzn Ti 6 Clp Sm Red - [id number] Implanted:Qty : 1 on 04/22/2021 by Melonie Baron D.O. at [facility] Hardware e.g. pins/screws/ rods [employer] / / Clp Hrzn Ti 6 Clp Sm Red - [id number] Implanted:Qty : 1 on 04/22/2021 by Delon Paz M.D. at [facility] Hardware e.g. pins/screws/ rods [employer] [id number] / / Clp Hrzn Ti 6 Clp Md Dick - [id number] Implanted:Qty : 1 on 04/22/2021 by Melonie Baron D.O. at [facility] Hardware e.g. pins/screws/ rods [employer] [id number] 05/28/2025212004 / / [id number] Clp Hrzn Ti 6 Clp Sm Red - [id number] Implanted:Qty : 1 on 04/22/2021 by Melonie Baron D.O. at [facility] Hardware e.g. pins/screws/ rods [employer] [id number] 08/28/2025 / / [id number] Clp Hrzn Ti 6 Clp Md Dick - [id number] Implanted:Qty : 1 on 04/22/2021 by Melonie Baron D.O. at [facility] [employer]ware e.g. pins/screws/ rods [employer] [id number] 05/28/2025 / / [id number] Clp Hrzn Ti 6 Clp Sm Red - [id number] Implanted:Qty : 1 on 04/22/2021 by Melonie Baron D.O. at [facility] Hardware e.g. pins/screws/ rods [employer] [id number] 08/28/2025 / / [id number] Clp Hrzn Ti 6 Clp Sm Red - [id number] Implanted:Qty : 1 on 04/22/2021 by Melonie Baron D.O. at [facility] [employer]ware e.g. pins/screws/ rods [employer] [id number] 08/28/2025 / / [id number] Clp Hrzn Ti 6 Clp Sm Red - [id number] Implanted:Qty : 1 on 04/22/2021 by Melonie Baron D.O. at [facility] Hardware e.g. pins/screws/ rods [employer] [id number] 08/28/2025F2100853 Clp Hrzn Ti 6 Clp Sm Red - [id number] Implanted:Qty : 1 on 04/22/2021 by Melonie Baron D.O. at [facility] Hardware e.g. pins/screws/ rods [employer] [id number] 08/28/2025F2100853 Clp Hrzn Ti 6 Clp Sm Red - [id number] Implanted:Qty : 1 on 04/22/2021 by Melonie Baron D.O. at [facility] Hardware e.g. pins/screws/ rods [employer] [id number] 12/15/2025K2100300 Clp Hrzn Ti 6 Clp Sm Red - [id number] Implanted:Qty : 1 on 04/22/2021 by Melonie Baron D.O. at [facility] [employer]ware e.g. pins/screws/ rods [employer] [id number] 12/22/2025K2100629 Clp Hrzn Ti 6 Clp Sm Red - [id number] Implanted:Qty : 1 on 04/22/2021 by Melonie Baron D.O. at [facility] [employer]ware e.g. pins/screws/ rods [employer] [id number] 12/22/2025K2100629 Clp Hrzn Ti 6 Clp Sm Red - [id number] Implanted:Qty : 1 on 04/22/2021 by Melonie Baron D.O. at [facility] [employer]ware e.g. pins/screws/ rods [employer] [id number] 08/28/2025F2100853 Clp Hrzn Ti 6 Clp Md Dick - [id number] Implanted:Qty : 1 on 04/22/2021 by Melonie Baron D.O. at [facility] [employer]ware e.g. pins/screws/ rods [employer] [id number] 05/28/2025 / / [id number] Clp Hrzn Ti 6 Clp Sm Red - [id number] Implanted:Qty : 1 on 04/22/2021 by Melonie Baron D.O. at [facility] [employer]ware e.g. pins/screws/ rods [employer] [id number] 08/28/2025 / / [id number] Clp Hrzn Ti 6 Clp Md Dick - [id number] Implanted:Qty : 1 on 04/22/2021 by Melonie Baron D.O. at [facility] Hardware e.g. pins/screws/ rods [employer] [id number] 09/15/2025 / / [id number] Clp Hrzn Ti 6 Clp Sm Red - [id number] Implanted:Qty : 1 on 04/22/2021 by Melonie Baron D.O. at [facility] Hardware e.g. pins/screws/ rods [employer] [id number] 12/22/2025 / / [id number] Clp Hrzn Ti 6 Clp Sm Red - [id number] Implanted:Qty : 1 on 04/22/2021 by Melonie Baron D.O. at [facility] [employer]ware e.g. pins/screws/ rods [employer] [id number] 12/15/2025 / / [id number] Clp Hrzn Ti 24 Clp Md Dick - [id number] Implanted:Qty : 1 on 04/22/2021 by Melonie Baron D.O. at [facility] Hardware e.g. pins/screws/ rods [employer] [id number] / / Clp Hrzn Ti 6 Clp Sm Red - [id number] Implanted:Qty : 1 on 04/22/2021 by Delon Paz M.D. at [facility] [employer] e.g. pins/screws/ rods [employer] [id number] 12/08/2025 / / [id number] Clp Hrzn Ti 6 Clp Sm Red - [id number] Implanted:Qty : 1 on 04/22/2021 by Delon Paz M.D. at [facility] [employer]ware e.g. pins/screws/ rods [employer] [id number] 08/28/2025 [id number] / / [id number] Clp Hrzn Ti 24 Clp Md Dick - [id number] Implanted:Qty : 1 on 04/22/2021 by Delon Paz M.D. at [facility] [employer]ware e.g. pins/screws/ rods [employer] [id number] 01/12/2026 [id number] / / [id number] Clp Hrzn Ti 6 Clp Sm Red - [id number] Implanted:Qty : 1 on 04/22/2021 by Melonie Baron D.O. at [facility] [employer]ware e.g. pins/screws/ rods [employer] [id number] / / Clp Hrzn Ti 6 Clp Sm Red - [id number] Implanted:Qty : 1 on 04/22/2021 by Melonie Baron D.O. at [facility] [employer]ware e.g. pins/screws/ rods [employer] [id number] / / Clp Hrzn Ti 6 Clp Sm Red - [id number] Implanted:Qty : 1 on 04/22/2021 by Melonie Baron D.O. at [facility] [employer]ware e.g. pins/screws/ rods [employer] [id number] / / Clp Hrzn Ti 6 Clp Sm Red - [id number] Implanted:Qty : 1 on 04/22/2021 by Melonie Baron D.O. at [facility] [employer]ware e.g. pins/screws/ rods [employer] [id number] / / Clp Hrzn Ti 6 Clp Sm Red - [id number] Implanted:Qty : 1 on 04/22/2021 by Delon Paz M.D. at [facility] [employer]ware e.g. pins/screws/ rods [employer] [id number] / / Clp Hrzn Ti 6 Clp Sm Red - [id number] Implanted:Qty : 1 on 04/22/2021 by Melonie Baron D.O. at [facility] Hardware e.g. pins/screws/ rods [employer] / / Explanted Type Area Presales Consultant Device Identifier Shelf Expiration Date Model / Serial / Lot [place] 600 - [id number] Implanted:Qty: 2 on 12/10/2000 Explanted:Qty: 2 on 04/22/2021 by Melonie Baron D.O. at [facility] Breast Implant [employer] Description:Device Manufactu rer - [place]. Device Status Text - [id number]. Implanted Port Single Lumen-08/22/2020 Implanted: 021 (Quantity not on file) Explanted: 022 (Quantity not on file) Implanted Port Single Lumen Right: Chest Description:Care Everywhere: [facility]: Summary of Episode Note received on 02/06/2021: Implanted Devices Device Date Implanted/Device Details [employer] Implantable Port August 22, 2020 DARIEL: [id number] Issuing Agency: [employer] Device Id: [id number] Expiration Date: 2021-12-05 Lot Number: [id number] Procedures Procedure Name Priority Date/Time Associated Diagnosis [...] Advance Directives For more information, please contact: [phone] * Full Code (Latest Code Status on File) Date Activated Date Inactivated Comments 04/22/2021 5:45 AM 04/28/2021 1:44 PM Question Answer Comments Full Code: Not Discussed Due to: Not medically appropriate
--- OUTSIDE RECORDS SUMMARY | 2023-10-04 04:08 | XMS_ITS ---
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 Past Plans Flushes/Hydration Plan Name Start Date Discontinue Date Treatment Medications Discontinue Reason Plan Provider VASCULAR ACCESS PATENCY - IMPLANTED VASCULAR ACCESS DEVICE (IVAD) VENOUS NON-VALVED 02/10/2021 02/04/2022 No medications scheduled. Therapy Complete - Radiation Treatments * Plan Last Treated On Elapsed Days Fractions Treated Prescribed Fraction Dose Prescribed Total Dose [id number] LN 03/18/2021 36 22 of 22 200 cGy 4,400 cGy [id number] LN 02/12/2021 2 3 of 25 200 cGy 5,000 cGy Reference Point Last Treated On Elapsed Days Session Dose Total Dose [id number] 03/18/2021 36 175 cGy 5,000 cGy
--- OUTSIDE RECORDS SUMMARY | 2023-10-04 04:08 | XMS_ITS | Continuity of Care Document ---
Author Organization [facility] Address [address] [address] [place] [address] Phone Care Team Providers Care Executive Officer Special Warfare Team Name Role Phone Unavailable Unavailable Unavailable Allergies, Adverse Reactions, Alerts Substance Reaction Status Criticality morphine Active No Information Medications Medication Instructions Dosage Effective Dates (start - stop) Status Comments Aspir-Low 81 mg tablet,delayed release take 1 tablet by oral route every day - Active Calcium 600 + D(3) 600 mg calcium-200 unit capsule take 2 by Oral route every day 2 - Active Fish Oil 100 mg-160 mg-1,000 mg capsule take 1 Capsule by Oral route 2 times every day 1 Capsule - Active hydrochlorothiazide 25 mg tablet take 1 tablet by oral route every day 25 MG - Active levothyroxine 112 mcg tablet take 1 tablet by oral route every day 112 MCG - Active metoprolol tartrate 50 mg tablet take 1 tablet by ORAL route 2 times every day with meals 50 MG - Active multivitamin tablet take 1 tablet by oral route every day with food - Active Vitamin D3 1,000 unit capsule take 1 by Oral route every day 1 - Active Procedures Procedure Date Colonoscopy Flex; Dx (sep Pro) 19 Subsqt Hosp-da E&m Minr Compl 8 Subsqt Hosp-da E&m Minr Compl 8 Init Inpt Cons New/est Mod-hi 8 Advance Directives Directive Yes / No Effective Date File Name No Information Encounters Encounter Description Practice Location Reason(s) For Visit Diagnoses Date Provider Providers Copied on Encounter [facility], [address] [address], [place], [id number], [place] tel:[phone] [facility] No Information 9 No Information Referring Provider: Rufus Casarez MD, [address] [facility] [address], [place], [address] . tel:[phone] [facility], [address] [address], [place], [id number], [place] tel:[phone] [facility] Screening ColonoscopyEn counter for screening for malignant neoplasm of colon 9 Leida Hooper. [address] [facility], [facility] [address], [place], [place], [id number], [place]. tel:[phone] Referring Provider: Michael Restrepo, [address], [place], [address]. tel:[phone] Subsqt Hosp-da E&m Minr Compl [facility], [address] [address], [place], [id number], [place] tel:[phone] [facility] No Information 8 Fletcher Mccann. [address] [facility], [facility] [address], [place], [place], [id number], [place]. tel:[phone] Subsqt Hosp-da E&m Minr Compl [facility], [address] [address], [place], [id number], [place] tel:[phone] [facility] No Information 8 Alex Lisa. [address] [facility], [address], [place], [place], [id number], [place]. tel:[phone] Init Inpt Cons New/est Mod-hi [facility], [address] [address], [place], [id number], [place] tel:[phone] [facility] No Information 8 Onofre Sarah. [address] [facility], [facility] [address], [place], [place], [id number], [place]. tel:[phone] Family History Family Member Type Diagnosis Age At Onset Brother Problem (finding) Alive and well Father Problem (finding) Alive and well Daughter Problem (finding) Alive and well Mother Problem (finding) Thyroid disorder Payers Payer name Insurance type Covered green party ID Authormellisa lincoln(s) [facility] [id number] Social History Type Description Quantity Date Captured Comments Sex Female Smoking Status No Information Chief Complaint And Reason For Visit No Information Reason For Referral Reason For Referral No Information History Of Present Illness Encounter Date Complaint History Of Prese nt Illness No Information Functional Status Date Functional Assessmen t No Information Instructions Date Instruction Additional Infor mey Colon Cancer Prevention Related to Screening Colonoscopy Hemorrhoids Related to Scree esther Colonoscopy Assessments Type Assessment Date No Information Patient Care Teams Name Effective Dates (start - stop) Status Members No Information
--- OUTSIDE RECORDS SUMMARY | 2023-10-04 04:08 | XMS_ITS ---
Author Organization [facility] Address [address] [place] [address] Care Team Providers Care Director [employer] Name Role Phone Unavailable Unavailable Unavailable Surgery Details Not on file Complications Check Surgery Details section. Procedure Estimated Blood Loss Check Surgery Details section. Procedure Findings Check Surgery Details section. Procedure Specimens Taken Check Surgery Details section.
--- OUTSIDE RECORDS SUMMARY | 2023-10-04 04:08 | XMS_ITS | Encounter Summary ---
Author Organization [facility] Address [address] [place] [address] Care Team Providers Care Payroll Director Name Role Phone Unavailable Primary Care Provider Unavailabl e Reason for Visit * Reason Onset Date Comments Blood Pressure 07/19/2023 Encounter Details Date Type Department Care Team (Latest Contact Info) Description 07/19/2023 8:00 AM CDT Clinical Communication Virtual Review in [place], [place] [address] [place] [address] Blood Pressure Social History Tobacco Use Types Packs/Day Years Used Date Smoking Tobacco: Never Smokeless Tobacco: Never Tobacco Cessation:Counseling Given: Not Answered Alcohol Use Standard Drinks/Week Comments Yes 2 (1 standard drink = 0.6 oz pur e alcohol) [facility] Utilities Answer Date Recorded In the past 12 months has [facility] [employer], gas, oil, or water [employer] threatened to shut off services in your [...] often do you attend chur ch or sikh services? More than 4 times per year 03/27/2022 Do you belong to any clubs o r organizations such as gnosticist groups, unions, fraternal or athletic groups, or [...] and heating? Not hard at all 02/21/2021 [facility] - Occupational Stress Questionnaire Answer Date [...] your living situation today? I have a [facility] place to live 07/15/2023 Education Answer Date Recorded What is the highest level of school you have completed or the highest degree you have received? Associate degree: occupational, technical, or vocational program 01/28/2021 Sex and Gender Information Value Date Recorded Sex Assigned at Female 01/27/2021 7:33 PM SCHOOL LIBRARY MEDIA PROGRAM DIRECTOR Gender Identity Female 01/27/2021 7:33 PM SCHOOL LIBRARY MEDIA PROGRAM DIRECTOR Sexual Orientation Bisexual 01/27/2021 7: 33 PM SCHOOL LIBRARY MEDIA PROGRAM DIRECTOR documented as of this encounter Plan of Treatment Not on file documented as of this encounter Visit Diagnoses Not on filedocumented in this encounter
[2023-10-04] MEDS: cephALEXin 500 MG CAPSULE PO (04:09)
== END 2023-10-04 04:13 | disposition home or self-care (01) ==
PROVIDERS: Emergency Provider Emergency Medicine; PCP Internal Medicine
DX: N39.0 Urinary tract infection, site not specified (principal); S80.862A Insect bite (nonvenomous), left lower leg, initial encounter; W57.XXXA Bitten or stung by nonvenomous insect and other nonvenomous arthropods, initial encounter; Y93.H2 Activity, gardening and landscaping
CPT/HCPCS: 81001; 81003; 87086; 87186; 99282; 99283; A9270

== ENCOUNTER 2023-11-12 07:55 | Outpatient (CLI) | payer OTHER, SELFPAY ==
--- OUTSIDE RECORDS SUMMARY | 2023-11-18 05:37 | XMS_ITS ---
Author Organization [facility] Address [address] [place] [address] Care Team Providers Care Motion Picture Projectionist Apprentice Name Role Phone Unavailable Primary Care Provider [...] Status Post 03/11/2017 Overview (04/22/2021): Per 2001 [place] note meningococcus vaccine, H Flu and MMR [...] On Elapsed Days Session Dose Total Dose [id number] 03/18/2021 36 175 cGy 5,000 cGy
--- OUTSIDE RECORDS SUMMARY | 2023-11-18 05:37 | XMS_ITS ---
Author Organization [facility] Address [address] [place] [address] Care Team Providers Care Graphic Illustrator Name Role Phone Unavailable Unavailable Unavailable Surgery Details Not on file Complications Check Surgery Details section. Procedure Estimated Blood Loss Check Surgery Details section. Procedure Findings Check Surgery Details section. Procedure Specimens Taken Check Surgery Details section.
--- OUTSIDE RECORDS SUMMARY | 2023-11-18 05:37 | XMS_ITS | Clinical Summary ---
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 Left subclavian artery occlusion 03/05/2014 Overview (03/05/2014): See ultrasound 03/05/14, referral to Vascular made. Skin lesion of scalp 07/19/2013 Papillary thyroid carcinoma 10/19/2011 Overview (10/18/2015): 0.4 cm tumor, follicular variant surgery 09/21/11 MACIS score = 3.8 (< 1% 20-year cancer-related mortality) no postoperative radioiodine needed yearly thyroglobulin recommended given patient's history of XRT for childhood lymphoma. If < 0.5, no need to follow-up with endocrine. Goal TSH is normal range. Postoperative hypothyroidism 10/19/2011 HTN (hypertension) 09/15/2011 Routine general medical exam ination at a health care facility 06/18/2010 Overview (07/12/2012): dexa normal 01/2010. Will recheck age 50. Aura Delgadillo M.D. 07/12/2012 8:37 AM Also colon cancer screening age 50 Vitamin D deficiency 06/18/2010 Malignant neoplasm of breast (female), unspecifi ed site 02/15/2007 Overview (07/14/2018): left breast, invasive ductal carcinome , grade 1 of 3, forming multiple discrete masses in the breast. ER and IA positive, sentinal node negative. 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 [phone] Sofia Manuel MD from Last 3 Months Immunizations Name Administration Dates Next Due AMB INFLUENZA, IIV4 (AGE=>6M OS) MDV (Flu Clinic Only) 12/24/2016 COVID-19 vaccine ([employer] 30mcg/0.3mL) 12YO+ BIVALENT PF, MDV 11/19/2021 COVID-19 vaccine ([employer] 30mcg/0.3mL) PF, MDV 01/01/2021 Influenza A [...] Comments Blood Pressure 113/66 03/06/2022 12:53 PM CRIMINAL JUSTICE SOCIAL WORKER Pulse 90 03/06/2022 12:53 PM CRIMINAL JUSTICE SOCIAL WORKER Temperature 36.6 ??C (97.9 ??F) 12/31/2020 4:30 PM CD T Respiratory Rate 20 03/17/2017 2:13 PM CRIMINAL JUSTICE SOCIAL WORKER Oxygen Saturation 100% 03/06/2022 12:53 PM CRIMINAL JUSTICE SOCIAL WORKER Inhaled Oxygen Concentration - - Weight 76.7 kg (169 lb) 03/06/2022 12:53 PM CRIMINAL JUSTICE SOCIAL WORKER Height 176.5 cm (5' 9.5) 03/06/2022 12:53 PM CS T Body Mass Index 24.6 03/06/2022 12:53 PM CRIMINAL JUSTICE SOCIAL WORKER Plan of Treatment Health Maintenance Due Date Last Done Comments Pneumococcal series for age 6-64 (3 of 3 - PPSV23 or PCV20) 09/22/2022 09/22/2017, 09/16/2015 Depression screening for age 12+ 11/19/2022 11/19/2021, 11/18/2020, 11/18/2020, Additional history exists BMI (ht and wt on same day) for age 18+ 03/06/2023 03/06/2022, 01/22/2022, 11/19/2021, Additional history exists Pap test for age 21-65 09/27/2023 9, 09/26/2018, 09/16/2015, Additional history exists COVID-19 vaccine series ( season) 2023 11/19/2021, 01/01/2021, 12/11/2020 Influenza for age 50-64 11/07/2023 12/27/19, 12/16/2020, 12/16/2020, Additional history exists Lipids for [...] 12/31/2020, 06/18/2010 Medical Devices Implanted Type Area Lorry Weigher Device Identifier Shelf Expiration Date Model / Serial / Lot Graft Vasc 8mm 30cmmm Hemashield Gold Stra - [id number] Implanted:Qty: 1 on 04/09/2014 by Lg Russo MD at [facility] Grafts Left: Carotid Artery [employer] 03/07/2017 [id number] / / [id number] Mammary [id number] [[id number]] Implanted:Qty: 1 on 08/27/2009 at [facility] Explanted:at [facility] (Quantity not on file) Right: Breast [employer]PLANT[employer] [id number] C# / [id number] / [id number] Mammary [id number] [[id number]] Implanted:Qty: 1 on 08/27/2009 at [facility] Explanted:at [facility] (Quantity not on file) Left: Breast [employer]PLANT[employer] [id number] C# / [id number] / [id number] Procedures Procedure Name Priority Date/Time Associated Diagnosis Comments LIPID PANEL W REFLEX MEASURED LDL Routine 11/19/2021 9:06 AM CDT HTN (hypertension) CLIENT CARE MANAGER THIN PREP PAP SCREEN IMAGED Routine 09/26/2018 8:35 AM CDT Pap smear for cervical cancer screening SCAN-COLONOSCOPY 05/30/2018 2:30 PM CDT OCCULT BLOOD IFOBT STOOL Routine 08/30/2017 11:37 AM CDT Special screening for malignant neoplasms, colon ANTI HIV 1/2 Early AM 03/17/2017 6:55 AM CRIMINAL JUSTICE SOCIAL WORKER ANTI HCV Early AM 03/17/2017 6:55 AM CRIMINAL JUSTICE SOCIAL WORKER from Last 3 Months or Most Recently Relevant to Health Maintenance Results * (ABNORMAL) LIPID PANEL W REFLEX MEASURED LDL (11/19/2021 9:06 AM CDT) CHOLESTEROL,TOTAL 210(H) 100 - 199 mg/dL 11/19/2021 5:15 PM CDT [facility] TRIGLYCERIDES 169(H) <150 mg/dL 11/19/2021 5:15 PM CDT [facility] HDL CHOLESTEROL 58 >40 mg/dL 5:15 PM CDT [facility] NON-HDL CHOLESTEROL 152(H) <145 mg/dl 11/19/2021 5:15 PM CDT [facility] CHOL/HDL RATIO 3.62 <4.50 11/19/2021 5:15 PM CDT [facility] LDL CHOLESTEROL 118 <=130 mg/dL 11/19/2021 5:15 PM CDT [facility] VLDL CHOLESTEROL 34(H) <=30 mg/dL 11/19/2021 5:15 PM CDT [facility] PROVIDER ORDERED STATUS RANDOM 11/19/2021 5:15 PM CDT [facility] Blood BLOOD SPECIMEN / Unknown Butterfly / Unknown 11/19/2021 9:06 AM CDT 11/19/2021 9:07 AM CDT Jeanette Merino MD [facility]Y [facility] [address] [place] [address], [place] * CLIENT CARE MANAGER THIN PREP PAP SCREEN IMAGED (09/26/2018 8:35 AM CDT) Case Report Gynecologic Cytology Report ? Case: [id number] ? Authorizing Provider: ??Jeanette Merino MD ? Collected: ? 09/26/2018 0835 ? Ordering Location: ? [facility] ?? Received: ?09/26/2018 1441 ? Clinic ? First Screen: ?Maria L Lim ? Specimen: ?CLIENT CARE MANAGER ThinPrep Vial Screening, Cervical ? 10/05/2018 12:05 PM CDT [employer] LABORATORY-C ENTRAL LABORATORY INTERPRETATION/ RESULT NEGATIVE FOR INTRAEPITHELIAL LESION OR MALIGNANCY (NIL) (none) 10/05/2018 12:[address] [facility] IMEN ADEQUACY Satisfactory for evaluation Endocervical component present 10/05/2018 12:[address] ENTRAL LABORATORY HPV REQUEST HPV and PAP 10/05/2018 12:05 PM CDT [facility] Date of LMP n/a 10/05/2018 12:05 PM CDT [facility] Last Pap Date 09/16/15 10/05/2018 12:05 PM CDT [facility] Last Pap Result NIL 9 12:05 PM CDT [facility] Abnormal Pap or [place] Bx in last 5 years No 10/05/2018 12:05 PM CDT [facility] Menstrual Status Postmenopausal 10/05/2018 12:05 PM CDT [facility] Ghent Bx Done Today No 10/05/2018 12:05 PM CDT [facility] Additional Information None given 10/05/2018 12:05 PM CDT [facility] Automated Review Successful 10/05/2018 12:05 PM CDT [facility] Comment:Specimen processed s uccessfully by automated tool and die machinist device, ThinPrep Imaging System, [employer] ANCILLARY TESTING CLIENT CARE MANAGER HPV Ordered, Please see separate report 10/05/2018 12:05 PM CDT [facility] Note The pap test is a [...] lesions. Cytology is screened and interpreted at [facility] - [address], [place] [address] and [facility] - [address] [place] [address]; [place] [address] and [facility] - [address]; [place] [address] and [facility] [address]; [place] [address] 10/05/2018 12:05 PM CDT [facility] Other (Cervical) Non-Blood / Unknown 09/26/2018 8:35 AM CDT 09/26/2018 2:41 PM CDT Jeanette Merino MD PATHOLOGY/CYTOLOGY [facility] LABORAT[facility]-CENTRAL LABORATORY [address] [place] [address], [place] * SCAN-COLONOSCOPY (05/30/2018 2:30 PM CDT) Narrative Procedure Note Rufus Casarez MD - 05/30/2018 1:14 PM CDT [facility] [address], [address], [place] [address] Patient Name: Carolyn Cox Gender: Female Exam Date: 05/30/2018 Visit Number: [id number] Age: 52 Years 9 Months Date of : 1965 Attending MD: Rufus Casarez MD Medical Record#: [id number] ----- Procedure: Colonoscopy Indications: Colorectal cancer screening Referring MD: Michael Headley MD Primary MD: Jeanette Merino MD Medications: Admitting Medications: 0.9% Normal Saline at O Intra Procedure Medications: Patient received monitored anesthesia [...] 26.50 Race: Ethnicity: Not or Preferred Language: [place] cc: Jeanette Merino MD cc: Michael Headley MD [facility] [phone] Rufus Casarez MD OTHER * OCCULT BLOOD IFOBT STOOL [[id number]] (08/30/2017 11:37 AM CDT) STOOL BLOOD ,IFOBT Negative Negative 08/31/2017 10:51 AM CDT [facility] Stool STOOL SPECIMEN / Unknown Non-Blood / Unknown 08/30/2017 11:37 AM CDT 08/30/2017 11:38 AM CDT Jeanette Merino MD LABORATORY [facility] [address] [place] [address], * Anti-hepatitis C AM (03/17/2017 6:55 AM CRIMINAL JUSTICE SOCIAL WORKER) HEPATITIS C ANTIBODY Non-Reacti ve Non-Reacti ve 03/17/2017 7:47 AM CRIMINAL JUSTICE SOCIAL WORKER [facility] Blood BLOOD SPECIMEN / Unknown Butterfly / Unknown 03/17/2017 6:55 AM CRIMINAL JUSTICE SOCIAL WORKER 03/17/2017 7:03 AM CRIMINAL JUSTICE SOCIAL WORKER Narrative [facility] - 03/17/2017 7:47 AM CRIMINAL JUSTICE SOCIAL WORKER Antibodies to HCV not detected; does not exclude the possibility of exposure to HCV. Ty Martinez MD SEND OUTS [facility] [address] [place] [address], * HIV 1&2 TODAY (03/17/2017 6:55 AM CRIMINAL JUSTICE SOCIAL WORKER) HIV-1/HIV-2 ANTIBODY Non-Reacti ve Non-Reacti ve 03/17/2017 7:51 AM CRIMINAL JUSTICE SOCIAL WORKER [facility] Blood BLOOD SPECIMEN / Unknown Butterfly / Unknown 03/17/2017 6:55 AM CRIMINAL JUSTICE SOCIAL WORKER 03/17/2017 7:03 AM CRIMINAL JUSTICE SOCIAL WORKER Narrative [facility] - 03/17/2017 7:51 AM CRIMINAL JUSTICE SOCIAL WORKER HIV-1 p24 and HIV-1/HIV-2 Ab not detected Ty Martinez MD SEND OUTS [facility] [address] [place] [address], [place] from Last 3 Months or Most Recently [...] 2:13 AM 09/21/2011 9:50 AM Care Teams Game Warden Relationship Specialty Start Date End Date Sofia Manuel MD [address] [place] [id number] PCP - General Internal Medicine 12/14/22
--- OUTSIDE RECORDS SUMMARY | 2023-11-18 05:37 | XMS_ITS | Clinical Summary ---
Author Organization [facility] Address [address] [place] [address] Care Team Providers Care Hog Sticker Name Role Phone Unavailable Primary Care Provider Unavailabl e Source Comments Patient records contain information from all sites at [facility]. For routine questions regarding patient records, call [phone] during business hours, M-F 8:00 AM - 5:00 PM Central Time. Record requests for emergency care only can be directed to [phone] at any time.[facility] Allergies Active Allergy Reactions Criticality Noted Date Comments Morphine Nausea And Vomiting Medium 01/14/2010 Prochlorperazine GI intolerance,Other (see comments),Nausea Only Medium 08/23/2020 Other reaction(s): Mental cloudiness Medications Medication Sig Dispensed Refills Start Date End Date Status aspirin [address] tablet Take 81 mg by mouth daily. 03/19/2014 Active calcium carbonate-vitamin D3 600-125 mg-unit tablet Take 1 tablet by mouth daily. Active cygzv-7-mea-epa-dpa -fish oil 1,050 mg(300 mg -675 mg-75 [...] drink = 0.6 oz pur e alcohol) [facility] Utilities Answer Date Recorded In the past 12 months has th e electric, gas, oil, or water company threatened to shut off services in your [...] often do you attend chur ch or jew services? More than 4 times per year 03/27/2022 Do you belong to any clubs o r organizations such as latter day groups, unions, fraternal or athletic groups, or [...] and heating? Not hard at all 02/21/2021 [facility] - Occupational Stress [...] money to buy more. Never true 07/15/19 Within the past 12 months, t he [...] Sex Assigned at Female 01/27/2021 7:33 PM SCROLL ASSEMBLER Gender Identity Female 01/27/2021 7:33 PM SCROLL ASSEMBLER Sexual Orientation Bisexual 01/27/2021 7: 33 PM SCROLL ASSEMBLER Last Filed Vital Signs Vital Sign Reading Time Taken Comments Blood Pressure 115/47 04/28/2021 11:03 AM SCROLL ASSEMBLER Pulse 86 04/28/2021 11:03 AM SCROLL ASSEMBLER Temperature 36.3 ??C (97.34 ??F) 04/28/2021 11:03 AM SCROLL ASSEMBLER Respiratory Rate 16 04/28/2021 11:03 AM SCROLL ASSEMBLER Oxygen Saturation 100% 04/28/2021 11:03 AM SCROLL ASSEMBLER Inhaled Oxygen Concentration - - Weight 81.7 [...] - PPSV23 or PCV20) 09/22/2022 09/22/2017, 09/16/2015 Thyroid Stimulating Hormone (TSH) test for thyroid function 12/29/2022 12/29/2021, 11/19/2021, 12/31/2020, Additional history exists Depression Screening (Annual PHQ-2) 03/08/2023 COVID-19 Vaccine ( season) 2023 11/19/2021, 01/01/2021, 12/11/2020 Influenza Vaccine (#1) 2023 , 12/26/2021, 12/16/2020, [...] this topic Medical Devices Implanted Type Area Director Consumer Affairs Device Identifier Shelf Expiration Date Model / Serial / Lot Clp Hrzn Ti 6 Clp Sm Red - [id number] Implanted:Qty : 1 on 04/22/2021 by Melonie Baron D.O. at [facility] Hardware e.g. pins/screws/ rods [employer] [id number] / / Clp Hrzn Ti 6 Clp Sm Red - [id number] Implanted:Qty : 1 on 04/22/2021 by Melonie Baron D.O. at [facility] Hardware e.g. pins/screws/ rods [employer] [id number] / / Clp Hrzn Ti 6 Clp Sm Red - [id number] Implanted:Qty : 1 on 04/22/2021 by Melonie Baron D.O. at [facility] Hardware e.g. pins/screws/ rods [employer] [id number] / / Clp Hrzn Ti 6 Clp Sm Red - [id number] Implanted:Qty : 1 on 04/22/2021 by Delon Paz M.D. at [facility] Hardware e.g. pins/screws/ rods [employer] 938500 / / Clp Hrzn Ti 6 Clp Md Dick - [id number] Implanted:Qty : 1 on 04/22/2021 by Melonie Baron D.O. at [facility] Hardware e.g. pins/screws/ rods [employer] [id number] 05/28/2025 [id number] / / [id number] Clp Hrzn Ti 6 Clp Sm Red - [id number] Implanted:Qty : 1 on 04/22/2021 by Melonie Baron D.O. at [facility] Hardware e.g. pins/screws/ rods [employer] [id number] 08/28/2025 / / [id number] Clp Hrzn Ti 6 Clp Md Dick - [id number] Implanted:Qty : 1 on 04/22/2021 by Melonie Baron D.O. at [facility] Hardware e.g. pins/screws/ rods [employer] [id number] 05/28/2025 / / [id number] Clp Hrzn Ti 6 Clp Sm Red - [id number] Implanted:Qty : 1 on 04/22/2021 by Melonie Baron D.O. at [facility] Hardware e.g. pins/screws/ rods [employer] [id number] 08/28/2025 / / [id number] Clp Hrzn Ti 6 Clp Sm Red - [id number] Implanted:Qty : 1 on 04/22/2021 by Melonie Baron D.O. at [facility] Hardware e.g. pins/screws/ rods [employer] [id number] 08/28/2025 / / [id number] Clp Hrzn Ti 6 Clp Sm Red - [id number] Implanted:Qty : 1 on 04/22/2021 by Melnoie Baron D.O. at [facility] Hardware e.g. pins/screws/ rods [employer] [id number] 08/28/2025 / / [id number] Clp Hrzn Ti 6 Clp Sm Red - [id number] Implanted:Qty : 1 on 04/22/2021 by Melonie Baron D.O. at [facility] Hardware e.g. pins/screws/ rods [employer] [id number] 08/28/2025 / / [id number] Clp Hrzn Ti 6 Clp Sm Red - [id number] Implanted:Qty : 1 on 04/22/2021 by Melonie Baron D.O. at [facility] Hardware e.g. pins/screws/ rods [employer] [id number] 12/15/2025 / / [id number] Clp Hrzn Ti 6 Clp Sm Red - [id number] Implanted:Qty : 1 on 04/22/2021 by Melonie Baron D.O. at [facility] Hardware e.g. pins/screws/ rods [employer] [id number] 12/22/2025 / / [id number] Clp Hrzn Ti 6 Clp Sm Red - [id number] Implanted:Qty : 1 on 04/22/2021 by Melonie Baron D.O. at [facility] Hardware e.g. pins/screws/ rods [employer] [id number] 12/22/2025 / / [id number] Clp Hrzn Ti 6 Clp Sm Red - [id number] Implanted:Qty : 1 on 04/22/2021 by Melonie Baron D.O. at [facility] Hardware e.g. pins/screws/ rods [employer] [id number] 08/28/2025 / / [id number] Clp Hrzn Ti 6 Clp Md Dick - [id number] Implanted:Qty : 1 on 04/22/2021 by Melonie Baron D.O. at [facility] Hardware e.g. pins/screws/ rods [employer] [id number] 05/28/2025 [id number] / / [id number] Clp Hrzn Ti 6 Clp Sm Red - [id number] Implanted:Qty : 1 on 04/22/2021 by Melonie Baron D.O. at [facility] Hardware e.g. pins/screws/ rods [employer] [id number] 08/28/2025566866 / / [id number] Clp Hrzn Ti 6 Clp Md Dick - [id number] Implanted:Qty : 1 on 04/22/2021 by Melonie Baron D.O. at [facility] Hardware e.g. pins/screws/ rods [employer] [id number] 09/15/2025644043 / / [id number] Clp Hrzn Ti 6 Clp Sm Red - [id number] Implanted:Qty : 1 on 04/22/2021 by Melonie Baron D.O. at [facility] Hardware e.g. pins/screws/ rods [employer] [id number] 12/22/2025728377 / / [id number] Clp Hrzn Ti 6 Clp Sm Red - [id number] Implanted:Qty : 1 on 04/22/2021 by Melonie Baron D.O. at [facility] Hardware e.g. pins/screws/ rods [employer] [id number] 12/15/2025 / / [id number] Clp Hrzn Ti 24 Clp Dick - [id number] Implanted:Qty : 1 on 04/22/2021 by Melonie Baron D.O. at [facility] Hardware e.g. pins/screws/ rods [employer] [id number] / / Clp Hrzn Ti 6 Clp Sm Red - [id number] Implanted:Qty : 1 on 04/22/2021 by Delon Paz M.D. at [facility] Hardware e.g. pins/screws/ rods [employer] [id number] 12/08/2025 / / [id number] Clp Hrzn Ti 6 Clp Sm Red - [id number] Implanted:Qty : 1 on 04/22/2021 by Delon Paz M.D. at [facility] Hardware e.g. pins/screws/ rods [employer] [id number] 08/28/2025 / / [id number] Clp Hrzn Ti 24 Clp Dick - [id number] Implanted:Qty : 1 on 04/22/2021 by Delon Paz M.D. at [facility] Hardware e.g. pins/screws/ rods [employer] [id number] 01/12/2026 830600 / / [id number] Clp Hrzn Ti 6 Clp Sm Red - [id number] Implanted:Qty : 1 on 04/22/2021 by Melonie Baron D.O. at [facility] Hardware e.g. pins/screws/ rods [employer] / / Clp Hrzn Ti 6 Clp Sm Red - [id number] Implanted:Qty : 1 on 04/22/2021 by Melonie Baron D.O. at [facility] Hardware e.g. pins/screws/ rods [employer] / / Clp Hrzn Ti 6 Clp Sm Red - [id number] Implanted:Qty : 1 on 04/22/2021 by Melonie Baron D.O. at [facility] Hardware e.g. pins/screws/ rods [employer] / / Clp Hrzn Ti 6 Clp Sm Red - [id number] Implanted:Qty : 1 on 04/22/2021 by Melonie Baron D.O. at [facility] Hardware e.g. pins/screws/ rods [employer] / / Clp Hrzn Ti 6 Clp Sm Red - [id number] Implanted:Qty : 1 on 04/22/2021 by Delon Paz M.D. at [facility] Hardware e.g. pins/screws/ rods [employer] / / Clp Hrzn Ti 6 Clp Sm Red - [id number] Implanted:Qty : 1 on 04/22/2021 by Melonie Baron D.O. at [facility] Hardware e.g. pins/screws/ rods [employer] / / Explanted Type Area Director Consumer Affairs Device Identifier Shelf Expiration Date Model / Serial / Lot Latty-Byrne 600 - [id number] Implanted:Qty: 2 on 12/10/2000 Explanted:Qty: 2 on 04/22/2021 by Melonie Baron D.O. at [facility] Breast Implant [employer] Description:Device Manufactu rer - Latty Gerry. Device Status Text - [id number]. Implanted Port Single Lumen-08/22/2020 Implanted: 021 (Quantity not on file) Explanted: 022 (Quantity not on file) Implanted Port Single Lumen Right: Chest Description:Care Everywhere: [facility] & [facility]: Summary of Episode Note received on 02/06/2021: Implanted Devices Device Date Implanted/Device Details PowerPort [employer] Implantable Port August 22, 2020 DARIEL: [id number] Issuing Agency: [facility] Device Id: [id number] Expiration Date: 2021-12-05 Lot Number: [id number] Additional Health Concerns Infection Onset Date Last Indicated Protective Environment 07/20/2023 Advance Directives For more information, please contact: [phone] * Full Code (Latest Code Status on File) Date Activated Date Inactivated Comments 04/22/2021 5:45 AM 04/28/2021 1:44 PM Question Answer Comments Full Code: Not Discussed Due to: Not medically appropriate
--- OUTSIDE RECORDS SUMMARY | 2023-11-18 05:37 | XMS_ITS | Referral Summary ---
Author Organization [facility] Address [address] [place] [address] Care Team Providers Care Lan Administrator Name Role Phone Unavailable Primary Care Provider Unavailabl e Source Comments Patient records contain information from all sites at [facility]. For routine questions regarding patient records, call [phone] during business hours, M-F 8:00 AM - 5:00 PM Central Time. Record requests for emergency care only can be directed to [phone] at any time.[facility] Allergies Active Allergy Reactions Criticality Noted Date Comments Morphine Nausea And Vomiting Medium 01/14/2010 Prochlorperazine GI intolerance,Other (see comments),Nausea Only Medium 08/23/2020 Other reaction(s): Mental cloudiness Medications Medication Sig Dispensed Refills Start Date End Date Status aspirin [address] tablet Take 81 mg by mouth daily. 03/19/2014 Active calcium carbonate-vitamin D3 600-125 mg-unit tablet Take 1 tablet by mouth daily. Active idnap-5-kgm-epa-dpa -fish oil 1,050 mg(300 mg -675 mg-75 [...] drink = 0.6 oz pur e alcohol) [facility] Utilities Answer Date Recorded In the past [...] often do you attend chur ch or advent services? More than 4 times per year 03/27/2022 Do you belong to any clubs o r organizations such as orthodoxy groups, unions, fraternal or athletic groups, or [...] and heating? Not hard at all 02/21/2021 [facility] - Occupational [...] Sex Assigned at Female 01/27/2021 7:33 PM [employer] Gender Identity Female 01/27/2021 7:33 PM [employer] Sexual Orientation Bisexual 01/27/2021 7: 33 PM [employer]IST Last Filed Vital Signs Vital Sign Reading Time Taken Comments Blood Pressure 115/47 04/28/2021 11:03 AM [employer]IST Pulse 86 04/28/2021 11:03 AM TAX E[employer]IST Temperature 36.3 ??C (97.34 ??F) 04/28/2021 11:03 AM TAX E[employer]OMIST Respiratory Rate 16 04/28/2021 11:03 AM TAX ECONOMIST Oxygen Saturation 100% 04/28/2021 11:03 AM TAX ECONOMIST Inhaled Oxygen Concentration - - Weight 81.7 kg (180 lb 1.9 oz) 07/20/2023 3:32 P M CDT Height 171.1 cm (5' 7.36) 05/29/2021 12:29 PM C DT Body Mass Index 27.91 05/29/2021 12:29 PM CDT Plan of Treatment Not on file Medical Devices Implanted Type Area Shank Piece Tacker Device Identifier Shelf Expiration Date Model / Serial / Lot Clp Hrzn Ti 6 Clp Sm Red - [id number] Implanted:Qty : 1 on 04/22/2021 by Melonie Baron D.O. at [facility] Hardware e.g. pins/screws/ rods [employer] [id number] / / Clp Hrzn Ti 6 Clp Sm Red - [id number] Implanted:Qty : 1 on 04/22/2021 by Melonie Baron D.Genny. at [facility] Hardware e.g. pins/screws/ rods [employer] [id number] / / Clp Hrzn Ti 6 Clp Sm Red - [id number] Implanted:Qty : 1 on 04/22/2021 by Melonie Barno D.Genny. at [facility] Hardware e.g. pins/screws/ rods [employer] [id number] / / Clp Hrzn Ti 6 Clp Sm Red - [id number] Implanted:Qty : 1 on 04/22/2021 by Delon Paz M.D. at [facility] Hardware e.g. pins/screws/ rods [employer] [id number] / / Clp Hrzn Ti 6 Clp Md Dick - [id number] Implanted:Qty : 1 on 04/22/2021 by Melonie Baron D.O. at [facility] Hardware e.g. pins/screws/ rods [employer] [id number] 05/28/2025 / / [id number] Clp Hrzn Ti 6 Clp Sm Red - [id number] Implanted:Qty : 1 on 04/22/2021 by Melonie Baron D.O. at [facility] Hardware e.g. pins/screws/ rods [employer] [id number] 08/28/2025 / / [id number] Clp Hrzn Ti 6 Clp Md Dick - [id number] Implanted:Qty : 1 on 04/22/2021 by Melonie Baron D.O. at [facility] Hardware e.g. pins/screws/ rods [employer] [id number] 05/28/2025 / / [id number] Clp Hrzn Ti 6 Clp Sm Red - [id number] Implanted:Qty : 1 on 04/22/2021 by Melonie Baron D.O. at [facility] Hardware e.g. pins/screws/ rods [employer] [id number] 08/28/2025 / [id number] Clp Hrzn Ti 6 Clp Sm Red - [id number] Implanted:Qty : 1 on 04/22/2021 by Melonie Baron D.O. at [facility] Hardware e.g. pins/screws/ rods [employer] [id number] 08/28/2025 / / [id number] Clp Hrzn Ti 6 Clp Sm Red - Implanted:Qty : 1 on 04/22/2021 by Melonie Baron D.O. at [facility] Hardware e.g. pins/screws/ rods [employer] [id number] 08/28/2025 / / [id number] Clp Hrzn Ti 6 Clp Sm Red - [id number] Implanted:Qty : 1 on 04/22/2021 by Melonie Baron D.O. at [facility] Hardware e.g. pins/screws/ rods [employer] [id number] 08/28/2025 / / [id number] Clp Hrzn Ti 6 Clp Sm Red - [id number] Implanted:Qty : 1 on 04/22/2021 by Melonie Baron D.O. at [facility] Hardware e.g. pins/screws/ rods [employer] [id number] 12/15/2025K2100300 Clp Hrzn Ti 6 Clp Sm Red - [id number] Implanted:Qty : 1 on 04/22/2021 by Melonie Baron D.O. at [facility] Hardware e.g. pins/screws/ rods [employer] [id number] 12/22/2025K2100629 Clp Hrzn Ti 6 Clp Sm Red - [id number] Implanted:Qty : 1 on 04/22/2021 by Melonie Baron D.O. at [facility] Hardware e.g. pins/screws/ rods [employer] [id number] 12/22/2025K2100629 Clp Hrzn Ti 6 Clp Sm Red - [id number] Implanted:Qty : 1 on 04/22/2021 by Melonie Baron D.O. at [facility] Hardware e.g. pins/screws/ rods [employer] [id number] 08/28/2025 / [id number] Clp Hrzn Ti 6 Clp Md Dick - [id number] Implanted:Qty : 1 on 04/22/2021 by Melonie Baron D.O. at [facility] Hardware e.g. pins/screws/ rods [employer] [id number] 05/28/2025 / / [id number] Clp Hrzn Ti 6 Clp Sm Red - [id number] Implanted:Qty : 1 on 04/22/2021 by Melonie Baron D.O. at [facility] Hardware e.g. pins/screws/ rods [employer] [id number] 08/28/2025966859 / / [id number] Clp Hrzn Ti 6 Clp Md Dick - [id number] Implanted:Qty : 1 on 04/22/2021 by Melonie Baron D.O. at [facility] Hardware e.g. pins/screws/ rods [employer] [id number] 09/15/2025 [id number] / / [id number] Clp Hrzn Ti 6 Clp Sm Red - [id number] Implanted:Qty : 1 on 04/22/2021 by Melonie Baron D.O. at [facility] Hardware e.g. pins/screws/ rods [employer] [id number] 12/22/2025 / / [id number] Clp Hrzn Ti 6 Clp Sm Red - [id number] Implanted:Qty : 1 on 04/22/2021 by Melonie Baron D.O. at [facility] Hardware e.g. pins/screws/ rods [employer] [id number] 12/15/2025 / / [id number] Clp Hrzn Ti 24 Clp Dick - [id number] Implanted:Qty : 1 on 04/22/2021 by Melonie Baron D.O. at [facility] Hardware e.g. pins/screws/ rods [employer] [id number] / / Clp Hrzn Ti 6 Clp Sm Red - [id number] Implanted:Qty : 1 on 04/22/2021 by Delon Paz M.D. at [facility] Hardware e.g. pins/screws/ rods [employer] [id number] 12/08/2025 / / [id number] Clp Hrzn Ti 6 Clp Sm Red - [id number] Implanted:Qty : 1 on 04/22/2021 by Delon Paz M.D. at [facility] Hardware e.g. pins/screws/ rods [employer] [id number] 08/28/2025 / / [id number] Clp Hrzn Ti 24 Clp Md Dick - [id number] Implanted:Qty : 1 on 04/22/2021 by Delon Paz M.D. at [facility] Hardware e.g. pins/screws/ rods [employer] [id number] 01/12/2026 [id number] / / [id number] Clp Hrzn Ti 6 Clp Sm Red - [id number] Implanted:Qty : 1 on 04/22/2021 by Melonie Baron D.Genny. at [facility] Hardware e.g. pins/screws/ rods [employer] [id number] / / Clp Hrzn Ti 6 Clp Sm Red - [id number] Implanted:Qty : 1 on 04/22/2021 by Melonie Baron D.O. at [facility] Hardware e.g. pins/screws/ rods [employer] [id number] / / Clp Hrzn Ti 6 Clp Sm Red - [id number] Implanted:Qty : 1 on 04/22/2021 by Melonie Baron D.O. at [facility] Hardware e.g. pins/screws/ rods [employer] [id number] / / Clp Hrzn Ti 6 Clp Sm Red - [id number] Implanted:Qty : 1 on 04/22/2021 by Melonie Baron D.O. at [facility] Hardware e.g. pins/screws/ rods [employer] [id number] / / Clp Hrzn Ti 6 Clp Sm Red - [id number] Implanted:Qty : 1 on 04/22/2021 by Delon Paz M.D. at [facility] Hardware e.g. pins/screws/ rods [employer] [id number] / / Clp Hrzn Ti 6 Clp Sm Red - [id number] Implanted:Qty : 1 on 04/22/2021 by Melonie Baron D.Genny. at [facility] Hardware e.g. pins/screws/ rods [employer] [id number] / / Explanted Type Area Shank Piece Tacker Device Identifier Shelf Expiration Date Model / Serial / Lot [facility] 600 - [id number] Implanted:Qty: 2 on 12/10/2000 Explanted:Qty: 2 on 04/22/2021 by Melonie Baron D.O. at [facility] Breast Implant [employer] Description:Device Manufactu rer - [employer] [employer]. Device Status Text - [id number]. Implanted Port Single Lumen-08/22/2020 Implanted: 021 (Quantity not on file) Explanted: 022 (Quantity not on file) Implanted Port Single Lumen Right: Chest Description:Care Everywhere: [facility]: Summary of Episode Note received on 02/06/2021: Implanted Devices Device Date Implanted/Device Details PowerPort [employer] Implantable Port August 22, 2020 DARIEL: [id number] Issuing Agency: [facility] Device Id: [id number] Expiration Date: 2021-12-05 Lot Number: [id number] Additional Health Concerns Infection Onset Date Last Indicated Protective Environment 07/20/2023 4 Advance Directives For more information, please contact: [phone] * Full Code (Latest Code Status on File) Date Activated Date Inactivated Comments 04/22/2021 5:45 AM 04/28/2021 1:44 PM Question Answer Comments Full Code: Not Discussed Due to: Not medically appropriate
== END 2023-11-12 07:56 | disposition home or self-care (01) ==
LOC: NFLDREF 11-18 05:35
PROVIDERS: PCP Internal Medicine; Referring Provider Internal Medicine; Visit Provider Internal Medicine
DX: E03.9 Hypothyroidism, unspecified (principal); E78.5 Hyperlipidemia, unspecified
CPT/HCPCS: 80061; 84443

== ENCOUNTER 2023-11-16 08:30 | Outpatient (CLI) | payer OTHER, SELFPAY | END 2023-11-16 08:31 | disposition home or self-care (01) | LOC: NFLDREF 11-30 12:33 | PROVIDERS: PCP Internal Medicine; Referring Provider Internal Medicine; Visit Provider Internal Medicine | DX: Z00.00 Encounter for general adult medical examination without abnormal findings (principal); Z12.4 Encounter for screening for malignant neoplasm of cervix | CPT/HCPCS: 87624 ==

== ENCOUNTER 2024-01-11 07:40 | Emergency (ER) | payer OTHER, SELFPAY ==
[2024-01-11 07:49] VITALS: BP 150/71; PULSE 94; RESP 18; TEMP 36.2; O2SAT 96; BMI 26.6
--- NOTE | 2024-01-11 08:06 | ED_ITS ---
HPI - General Adult General Chief complaint: Ear/Nose/Throat Problem Stated complaint: Blood coming from L ear Time Seen by Provider: 01/11/24 08:06 History of Present Illness HPI narrative: when lying on L side felt fluid coming out of L ear, dabbed with tissue and noticed it was blood. has had tube in that year, unsure if it has fallen out, was still there in november. 58-year-old woman presenting to the emergency department with concern of blood coming from her left ear. Head and head cold around 4 weeks ago. Had been feeling some pressure there in that left ear more recently. PE tubes were placed for need of hyperbaric treatment sometime ago as ears were not equalizing pressures No fever. No purulent drainage. Related Data Home Medications ?Medication ?Instructions ?Recorded ?Confirmed aspirin 81 mg capsule 81 mg PO DAILY 09/29/21 01/12/24 multivitamin 1 tab PO DAILY 09/29/21 01/12/24 omega-3 fatty acids 1,000 mg 1,000 mg PO DAILY 09/29/21 01/12/24 capsule calcium phosphate,dibasic 77 tab PO 10/08/21 01/12/24 mg-vitamin D3 400 unit tablet cholecalciferol (vitamin D3) 25 25 mcg PO QDAY 11/26/21 01/12/24 mcg (1,000 unit) capsule biotin 10 mg tablet 10 mg PO DAILY 07/21/22 01/12/24 Previous Rx's ?Medication ?Instructions ?Recorded letrozole 2.5 mg tablet 2.5 mg PO DAILY #90 tabs 03/24/23 hydrocortisone 2.5 % topical cream 1 applic topical BID PRN #28 grams 10/04/23 levothyroxine 100 mcg tablet 100 mcg PO QDAY #90 tabs 11/16/23 metoprolol succinate 50 mg 50 mg PO QDAY #90 tabs 11/16/23 tablet,extended release 24 hr ciprofloxacin 0.3 %-dexamethasone 4 drp otic (ear) TID 5 days #7.5 mL 01/12/24 0.1 % ear drops,suspension Allergies Allergy/AdvReac Type Severity Reaction Status Date / Time morphine AdvReac Intermediate Nausea Verified 01/12/24 14:32 prochlorperazine AdvReac Intermediate nausea Verified 01/12/24 14:32 Review of Systems Status of ROS: Reports: 6 or more systems reviewed and unremarkable except as noted in History and below PFSH PFS Medical History History of thyroid cancer ?Z85.850 - Personal history of malignant neoplasm of thyroid (ICD-10) History of Hodgkin's disease (1979) ?Z85.71 - Personal history of Hodgkin lymphoma (ICD-10) Surgical History History of thyroidectomy ?E89.0 - Postprocedural hypothyroidism (ICD-10) History of colonoscopy (05/30/18) ?Z98.890 - Other specified postprocedural states (ICD-10) Status post myringotomy with tube placement of both ears ?Z96.22 - Myringotomy tube(s) status (ICD-10) History of appendectomy (06/21/18) ?Z90.49 - Acquired absence of other specified parts of digestive tract (ICD- 10) Left subclavian artery occlusion (2014) ?I70.8 - Atherosclerosis of other arteries (ICD-10) History of splenectomy (1979) ?Z90.81 - Acquired absence of spleen (ICD-10) History of mantle field radiation therapy (1979) ?Z92.3 - Personal history of irradiation (ICD-10) H/O breast reconstruction ?Z98.890 - Other specified postprocedural states (ICD-10) Family History Mother Thyroid disease Coronary artery disease Parkinson's disease Atrial fibrillation Father Pacemaker Stroke Brother High cholesterol Depression Social History What is your current living situation?: I presently have a place to live Problems where you live: no known problems In the past 12 months, utilities in danger of being shut off: no In past 12 months, lack of transportation kept you from medical appts, meetings, work, or getting things needed for daily living: no In the past 12 mos, have been you worried that your food would run out before you had money to buy more?: never true In the past 12 mos, the food you bought just didn't last and you didn't have money to buy more?: never true Smoking Status: Never smoker Do you use any of these nicotine containing products: None How often do you have a drink containing alcohol: never How often do you have six or more drinks on one occasion: Never AUDIT-C Alcohol total score: 0 Non-prescribed substance use: denies use How often does anyone, including family, friends and others, physically hurt you : never How often does anyone, including family, friends and others, insult or talk down to you: never How often does anyone, including family, friends and others, threaten you with harm: never How often does anyone, including family, friends and others, scream or curse at you: never Little interest or pleasure in doing things: not at all Feeling down, depressed, or hopeless: not at all Exam Narrative: Exam Narrative: Pleasant. NAD. Mildly concerned. Here with . No facial swelling erythema. Does not sound to be particularly congested. Neck is supple without lymphadenopathy. Oropharynx unremarkable. Right TM appears to have perforation in the 7 o'clock position. No inflammatory changes or drainage. Right ear canal with dried blood and difficult though ultimately to visualize full TM. I can see a to but this might be hidden in blood. Is not actively bleeding at this time. There does appear to be some blood within layers of the tympanic membrane. No purulent drainage. Ear canal does not appear to be inflamed. No tragus tenderness. Const: Vital Signs, click to edit/add: Vital Signs - 24 hr 01/11/24 07:49 Temperature 97.2 F L Pulse Rate [Pulse Oximeter] 94 Respiratory Rate 18 Blood Pressure [Ri ght Upper Arm] 150/71 H Pulse Oximetry 96 Oxygen Delivery Me thod Room Air Documenting provider has reviewed patient's vital signs: yes Course Vital Signs Vital signs: Initial Vital Signs Temperature 97.2 F L 01/11/24 07:49 Temperature Source Temporal Artery Scan 01/11/24 07:49 Pulse Rate 94 01/11/24 07:49 Respiratory Rate 18 01/11/24 07:49 Blood Pressure 150/71 H 01/11/24 07:49 Blood Pressure Mean 97 01/11/24 07:49 Blood Pressure Position Sitting 01/11/24 07:49 Pulse Oximetry 96 01/11/24 07:49 Oxygen Delivery Method Room Air 01/11/24 07:49 Vital Signs Temperature 97.2 F L 11/05/24 07:49 Pulse Rate 94 01/11/24 07:49 Respiratory Rate 18 01/11/24 07:49 Blood Pressure 150/71 H 01/11/24 07:49 Pulse Oximetry 96 01/11/24 07:49 Oxygen Delivery Method Room Air 01/11/24 07:49 Temperature 97.2 F L 01/11/24 07:49 Pulse Rate 94 01/11/24 07:49 Respiratory Rate 18 01/11/24 07:49 Blood Pressure 150/71 H 01/11/24 07:49 Pulse Oximetry 96 01/11/24 07:49 Oxygen Delivery Method Room Air 01/11/24 07:49 Medical Decision Making MDM Narrative Medical decision making narrative: At this point I would allow time for clearing. Protect from outside fluid in the meantime. Does not appear to be infectious etiology at this time. Did not have significant congestive symptoms as a prodrome. Really seems to have a hemotympanum. Atraumatic. Perhaps the tube has worked its way out finally. In this process perhaps caused some bleeding. Does have a relationship with ENT. Would recommend follow-up here for re- evaluation. See patient discharge plan for further discussion. Medical Records Medical records reviewed: Yes I reviewed the patient's medical records Discharge Plan Discharge Clinical Impression: Hemotympanum Additional Instructions: I would consider placing wax plugs during bathing to avoid getting excessive water into your ears. Would not use cotton swabs on either side. Call today for an appointment with your ENT provider Dr. Machado, to be seen maybe in a couple of weeks for re-evaluation and further recommendations. Return for marked increase in pain, bleeding that just will not stop, purulent drainage, fever. Prescriptions: No Action levothyroxine 100 mcg tablet 100 mcg PO QDAY Qty: 90 3RF metoprolol succinate 50 mg tablet extended release 24 hr 50 mg PO QDAY Qty: 90 3RF cholecalciferol (vitamin D3) 25 mcg (1,000 unit) capsule 25 mcg PO QDAY ciprofloxacin-dexamethasone 0.3-0.1 % drops,suspension 4 drp otic (ear) TID 5 Days Qty: 7.5 2RF aspirin 81 mg capsule 81 mg PO DAILY multivitamin Tablet 1 tab PO DAILY omega-3 fatty acids 1,000 mg capsule 1,000 mg PO DAILY hydrocortisone 2.5 % cream 1 applic topical BID PRNQty: 28 0RF calcium phos,dibas-vitamin D3 77-400 mg-unit tablet PO biotin 10 mg tablet 10 mg PO DAILY letrozole 2.5 mg tablet 2.5 mg PO DAILY Qty: 90 3RF Follow Up/Referrals: Sofia Manuel MD [Primary Care Provider] - Stand Alone Forms: [employer] Info Instructions
== END 2024-01-11 08:37 | disposition home or self-care (01) ==
PROVIDERS: Emergency Provider Family Medicine; PCP Internal Medicine
DX: H92.21 Otorrhagia, right ear (principal)
CPT/HCPCS: 99283; 99284

== ENCOUNTER 2024-02-10 13:55 | Outpatient (CLI) | payer OTHER, SELFPAY ==
--- OUTSIDE RECORDS SUMMARY | 2024-02-10 13:58 | XMS_ITS | Referral Summary ---
Author Organization [facility] Address [address] [place] [address] Care Team Providers Care Door Captain Name Role Phone Unavailable Primary Care Provider Unavailabl e Source Comments Patient records contain information from all sites at [facility]. For routine questions regarding patient records, call [phone] during business hours, M-F 8:00 AM - 5:00 PM Central Time. Record requests for emergency care only can be directed to [phone] at any time.[facility] Allergies Active Allergy Reactions Criticality Noted Date Comments Morphine Nausea And Vomiting Medium 01/14/2010 Prochlorperazine GI intolerance,Other (see comments),Nausea Only Medium 08/23/2020 Other reaction(s): Mental cloudiness Medications aspirin [address] tablet Take 81 mg by mouth daily. 5 Active calcium carbonate-vitam in D3 600-125 mg-unit tablet Take 1 tablet by mouth daily. Active jtkuq-6-sfz-epa -dpa-fish oil 1,050 mg(300 mg -675 mg-75 mg) capsule Take 1 capsule by mouth daily. 3 Active multivitamin tablet Take 1 tablet by mouth daily. Active letrozole (FEMARA) 2.5 mg tablet Take 2.5 mg by mouth daily. 1 Active acetaminophen (TYLENOL) 500 mg tablet Take 2 tablets (1,000 mg total) by mouth every 6 (six) hours as needed for pain (pain). Take 2 tablets up to four times daily for pain 100 tablet 2 Active NaCl (Sterile Saline) 0.9 % irrigation Use sterile saline for wet to dry dressings for the chest. 2000 mL 1 2 Active pentoxifylline (TRENtal) 400 mg ER tablet Take 1 tablet (400 mg total) by mouth 3 (three) times a day with meals. 270 tablet 1 2 Active vitamin E 180 mg (400 Unit) capsule Take 1 capsule (400 Units total) by mouth daily. 90 capsule 1 2 Active abemaciclib (Verzenio) 150 mg tablet Take 150 mg by mouth daily. 2 Active denosumab (PROLIA) 60 mg/mL syringe Inject 60 mg under the skin every 6 (six) months. 2 Active loperamide (IMODIUM A-D) 2 mg capsule Take 2 mg by mouth 3 (three) times a day as needed for diarrhea. 2 Active loratadine (CLARITIN) 10 mg tablet Take 1 tablet by mouth daily. 1 Active metoprolol succinate (TOPROL-XL) 50 mg 24 hr tablet Take 1 tablet by mouth daily. 2 Active levothyroxine (SYNTHROID, LEVOTHROID) 100 mcg tablet Take 1 tablet by mouth daily. 4 Active UNABLE TO FIND Massage therapy for lymphedema and ROM subsequent to surgical scarring. 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 Overview (04/22/2021): Per 2000 Jacobs note meningococcus vaccine, H Flu and MMR vaccines UTD Hypothyroidism Postsurgical 10/19/2011 Hypertension 09/15/2011 Unsteadiness Gait Disorder Non Orthopedic Social History Tobacco Use Types Packs/Day Years Used Date Smoking Tobacco: Never Smokeless Tobacco: Never Tobacco Cessation:Counseling Given: Not Answered Alcohol Use Standard Drinks/Week Comments Yes 2 (1 standard drink = 0.6 oz pur e alcohol) [facility] Utilities Answer Date Recorded In the past 12 months has e electric, gas, oil, or water company [...] How often do you attend chur or synagogue services? More than 4 times per year 03/27/2022 Do you belong to any clubs o r organizations such as moravian groups, unions, fraternal or athletic groups, or [...] and heating? Not hard at all 02/21/2021 [facility] [place] [facility] Occupat ional Health - Occupational Stress [...] your living situation today? I have a [facility] place to live 07/15/2023 Education Answer Date Recorded What is the highest level of school you have completed or the highest degree you have received? Associate degree: occupational, technical, or vocational program 01/28/2021 Comments No Sex and Gender Information Value Date Recorded Sex Assigned at Female 01/27/2021 7:33 PM PASTE UP ARTIST Legal Sex Female 7:02 AM PASTE UP ARTIST Gender Identity Female 01/27/2021 7:33 PM PASTE UP ARTIST Sexual Orientation Bisexual 01/27/2021 7: 33 PM PASTE UP ARTIST Last Filed Vital Signs Vital Sign Reading Time Taken Comments Blood Pressure 115/47 04/28/2021 11:03 AM PASTE UP ARTIST Pulse 86 04/28/2021 11:03 AM PASTE UP ARTIST Temperature 36.3 C (97.34 F) 04/28/2021 11:03 AM PASTE UP ARTIST Respiratory Rate 16 04/28/2021 11:03 AM PASTE UP ARTIST Oxygen Saturation 100% 04/28/2021 11:03 AM PASTE UP ARTIST Inhaled Oxygen Concentration - - Weight 81.7 kg (180 lb 1.9 oz) 07/20/2023 3:32 P M CDT Height 171.1 cm (5' 7.36) 05/29/2021 12:29 PM C DT Body Mass Index 27.91 05/29/2021 12:29 PM CDT Plan of Treatment Not on file Medical Devices Implanted Type Area Personal Consultant Device Identifier Shelf Expiration Date Model / Serial / Lot Clp Hrzn Ti 6 Clp Sm Red - [id number] Implanted:Qty : 1 on 04/22/2021 by Melonie Baron D.O. at [facility] Hardware e.g. pins/screws/ rods [employer] / / Clp Hrzn Ti 6 Clp Sm Red - [id number] Implanted:Qty : 1 on 04/22/2021 by Melonie Baron D.O. at [facility] Hardware e.g. pins/screws/ rods [employer] / / Clp Hrzn Ti 6 Clp Sm Red - [id number] Implanted:Qty : 1 on 04/22/2021 by Melonie Baron D.O. at [facility] Hardware e.g. pins/screws/ rods [employer] [id number] / / Clp Hrzn Ti 6 Clp Sm Red - [id number] Implanted:Qty : 1 on 04/22/2021 by Delon Paz M.D. at [facility] Hardware e.g. pins/screws/ rods [employer] [id number] / / Clp Hrzn Ti 6 Clp Md Dick - [id number] Implanted:Qty : 1 on 04/22/2021 by Melonie Baron D.O. at [facility] Hardware e.g. pins/screws/ rods [employer] [id number] 05/28/2025 / / [id number] Clp Hrzn Ti 6 Clp Sm Red - [id number] Implanted:Qty : 1 on 04/22/2021 by Melonie Baron D.O. at [facility] Hardware e.g. pins/screws/ rods [employer] [id number] 08/28/2025 / / [id number] Clp Hrzn Ti 6 Clp Md Dick - [id number] Implanted:Qty : 1 on 04/22/2021 by Melonie Baron D.O. at [facility] Hardware e.g. pins/screws/ rods [employer] [id number] 05/28/2025 / / [id number] Clp Hrzn Ti 6 Clp Sm Red - [id number] Implanted:Qty : 1 on 04/22/2021 by Melonie Baron D.O. at [facility] Hardware e.g. pins/screws/ rods [employer] [id number] 08/28/2025 / / [id number] Clp Hrzn Ti 6 Clp Sm Red - [id number] Implanted:Qty : 1 on 04/22/2021 by Melonie Baron D.O. at [facility] Hardware e.g. pins/screws/ rods [employer] [id number] 08/28/2025 / / [id number] Clp Hrzn Ti 6 Clp Sm Red - [id number] Implanted:Qty : 1 on 04/22/2021 by Melonie Baron D.O. at [facility] Hardware e.g. pins/screws/ rods [employer] [id number] 08/28/2025 / / [id number] Clp Hrzn Ti 6 Clp Sm Red - [id number] Implanted:Qty : 1 on 04/22/2021 by Melonie Baron D.O. at [facility] Hardware e.g. pins/screws/ rods [employer] [id number] 08/28/2025F2100853 Clp Hrzn Ti 6 Clp Sm Red - [id number] Implanted:Qty : 1 on 04/22/2021 by Melonie Baron D.O. at [facility] Hardware e.g. pins/screws/ rods [employer] [id number] 12/15/2025K2100300 Clp Hrzn Ti 6 Clp Sm Red - [id number] Implanted:Qty : 1 on 04/22/2021 by Melonie Baron D.O. at [facility] Hardware e.g. pins/screws/ rods [employer] [id number] 12/22/2025K2100629 Clp Hrzn Ti 6 Clp Sm Red - [id number] Implanted:Qty : 1 on 04/22/2021 by Melonie Baron D.O. at [facility] Hardware e.g. pins/screws/ rods [employer] [id number] 12/22/2025K2100629 Clp Hrzn Ti 6 Clp Sm Red - [id number] Implanted:Qty : 1 on 04/22/2021 by Melonie Baron D.O. at [facility] Hardware e.g. pins/screws/ rods [employer] [id number] 08/28/2025F2100853 Clp Hrzn Ti 6 Clp Md Dick - [id number] Implanted:Qty : 1 on 04/22/2021 by Melonie Baron D.O. at [facility] Hardware e.g. pins/screws/ rods [employer] [id number] 05/28/2025C2100812 Clp Hrzn Ti 6 Clp Sm Red - [id number] Implanted:Qty : 1 on 04/22/2021 by Melonie Baron D.O. at [facility] Hardware e.g. pins/screws/ rods [employer] [id number] 08/28/2025367856 / / [id number] Clp Hrzn Ti 6 Clp Dick - [id number] Implanted:Qty : 1 on 04/22/2021 by Melonie Baron D.O. at [facility] Hardware e.g. pins/screws/ rods [employer] [id number] 09/15/2025 [id number] / / [id number] Clp Hrzn Ti 6 Clp Sm Red - [id number] Implanted:Qty : 1 on 04/22/2021 by Melonie Baron D.O. at [facility] Hardware e.g. pins/screws/ rods [employer] [id number] 12/22/2025 / / [id number] Clp Hrzn Ti 6 Clp Sm Red - [id number] Implanted:Qty : 1 on 04/22/2021 by Melonie Baron D.O. at [facility] Hardware e.g. pins/screws/ rods [employer] [id number] 12/15/2025 / / [id number] Clp Hrzn Ti 24 Clp Dick - [id number] Implanted:Qty : 1 on 04/22/2021 by Melonie Baron D.O. at [facility] Hardware e.g. pins/screws/ rods [employer] [id number] / / Clp Hrzn Ti 6 Clp Sm Red - [id number] Implanted:Qty : 1 on 04/22/2021 by Delon Paz M.D. at [facility] Hardware e.g. pins/screws/ rods [employer] [id number] 12/08/2025 / / [id number] Clp Hrzn Ti 6 Clp Sm Red - [id number] Implanted:Qty : 1 on 04/22/2021 by Delon Paz M.D. at [facility] Hardware e.g. pins/screws/ rods [employer] [id number] 08/28/2025 [id number] / / [id number] Clp Hrzn Ti 24 Clp Md Dick - [id number] Implanted:Qty : 1 on 04/22/2021 by Delon Paz M.D. at [facility] Hardware e.g. pins/screws/ rods [employer] [id number] 01/12/2026 021471 / / [id number] Clp Hrzn Ti 6 Clp Sm Red - [id number] Implanted:Qty : 1 on 04/22/2021 by Melonie Baron D.O. at [facility] Hardware e.g. pins/screws/ rods [employer] / / Clp Hrzn Ti 6 Clp Sm Red - [id number] Implanted:Qty : 1 on 04/22/2021 by Melonie Baron D.Genny. at [facility] Hardware e.g. pins/screws/ rods [employer] / / Clp Hrzn Ti 6 Clp Sm Red - [id number] Implanted:Qty : 1 on 04/22/2021 by Melonie Baron D.O. at [facility] Hardware e.g. pins/screws/ rods [employer] / / Clp Hrzn Ti 6 Clp Sm Red - [id number] Implanted:Qty : 1 on 04/22/2021 by Melonie Baron D.O. at [facility] Hardware e.g. pins/screws/ rods [employer] / / Clp Hrzn Ti 6 Clp Sm Red - [id number] Implanted:Qty : 1 on 04/22/2021 by Delon Paz M.D. at [facility] Hardware e.g. pins/screws/ rods [employer] / / Clp Hrzn Ti 6 Clp Sm Red - [id number] Implanted:Qty : 1 on 04/22/2021 by Melonie Baron D.O. at [facility] Hardware e.g. pins/screws/ rods [employer] / / Explanted Type Area Personal Consultant Device Identifier Shelf Expiration Date Model / Serial / Lot [place] 600 - [id number] Implanted:Qty: 2 on 12/10/2000 Explanted:Qty: 2 on 04/22/2021 by Melonie Baron D.O. at [facility] Breast Implant [employer] Description:Device Manufactu rer - [employer]. Device Status Text - [id number]. Implanted Port Single Lumen-08/22/2020 Implanted: 021 (Quantity not on file) Explanted: 022 (Quantity not on file) Implanted Port Single Lumen Right: Chest Description:Care Everywhere: [facility]: Summary of Episode Note received on 02/06/2021: Implanted Devices Device Date Implanted/Device Details PowerPort [employer] Implantable Port August 22, 2020 DARIEL: [id number] Issuing Agency: [facility] Device Id: [id number] Expiration Date: 2021-12-05 Lot Number: [id number] Procedures Procedure Name Priority Date/Time Associated Diagnosis Comments OUTSIDE NM PET Routine 11/18/2023 2:40 PM CDT from Last 3 Months Results * PET skull to mid thigh-Outside NM Pet (11/18/2023 2:40 PM CDT) Narrative IIMS - 11/18/2023 6:38 PM CDT This order has been created and auto-finalized to support the import of outside images. If available, original interpretation can be found on the Media Tab in Chart Review, in Document Viewer, as an image in QREADS or as an Addendum. If a re-interpretation or overread is required please follow defined workflow. us Provider Not In System IMG NM PROCEDURES Final R esult IIMS NA from Last 3 Months Additional Health Concerns Infection Onset Date Last Indicated Protective Environment 07/20/2023 Insurance [place] [address] Advance Directives For more information, please contact: [phone] * Full Code (Latest Code Status on File) Date Activated Date Inactivated Comments 04/22/2021 5:45 AM 04/28/2021 1:44 PM Question Answer Comments Full Code: Not Discussed Due to: Not medically appropriate
--- OUTSIDE RECORDS SUMMARY | 2024-02-10 13:58 | XMS_ITS | Clinical Summary ---
Author Organization [facility] Address [address] [place] [address] Care Team Providers Care Perinatal Instructor Name Role Phone Unavailable Primary Care Provider Unavailabl e Source Comments Patient records contain information from all sites at [facility]. For routine questions regarding patient records, call [phone] during business hours, M-F 8:00 AM - 5:00 PM Central Time. Record requests for emergency care only can be directed to [phone] at any time.[facility] Allergies Active Allergy Reactions Criticality Noted Date Comments Morphine Nausea And Vomiting Medium 01/14/2010 Prochlorperazine GI intolerance,Other (see comments),Nausea Only Medium 08/23/2020 Other reaction(s): Mental cloudiness Medications aspirin [address] tablet Take 81 mg by mouth daily. 5 Active calcium carbonate-vitam in D3 600-125 mg-unit tablet Take 1 tablet by mouth daily. Active ckpcy-6-sii-epa -dpa-fish oil 1,050 mg(300 mg -675 mg-75 [...] 0.6 oz pur e alcohol) [facility] Utilities Answer Date Recorded In the past [...] How often do you attend chur or sabianism services? More than 4 times per year 03/27/2022 Do you belong to any clubs o r organizations such as sabianism groups, unions, fraternal or athletic groups, or [...] and heating? Not hard at all 02/21/2021 [facility] of Occupat ional Health - Occupational Stress [...] your living situation today? I have a [facility] place to live 07/15/2023 Education Answer Date Recorded What is the highest level of school you have completed or the highest degree you have received? Associate degree: occupational, technical, or vocational program 01/28/2021 Comments No Sex and Gender Information Value Date Recorded Sex Assigned at Female 01/27/2021 7:33 PM REFRACTORY FURNACE DESIGNER Legal Sex Female 7:02 AM REFRACTORY FURNACE DESIGNER Gender Identity Female 01/27/2021 7:33 PM REFRACTORY FURNACE DESIGNER Sexual Orientation Bisexual 01/27/2021 7: 33 PM REFRACTORY FURNACE DESIGNER Last Filed Vital Signs Vital Sign Reading Time Taken Comments Blood Pressure 115/47 04/28/2021 11:03 AM REFRACTORY FURNACE DESIGNER Pulse 86 04/28/2021 11:03 AM REFRACTORY FURNACE DESIGNER Temperature 36.3 C (97.34 F) 04/28/2021 11:03 AM REFRACTORY FURNACE DESIGNER Respiratory Rate 16 04/28/2021 11:03 AM REFRACTORY FURNACE DESIGNER Oxygen Saturation 100% 04/28/2021 11:03 AM REFRACTORY FURNACE DESIGNER Inhaled Oxygen Concentration - - Weight 81.7 kg (180 lb 1.9 oz) 07/20/2023 3:32 P M CDT Height 171.1 cm (5' 7.36) 05/29/2021 12:29 PM C DT Body Mass Index 27.91 05/29/2021 12:29 PM CDT Plan of Treatment Health Maintenance Due Date Last Done Comments CT Colonography 1965 Cervical/Vaginal Cancer Screening 1965 Cologuard 1965 FIT 1965 [...] Screening (Annual PHQ-2) 03/08/2023 COVID-19 Vaccine ( - season) 2023 11/19/2021, 01/01/2021, 12/11/2020 Influenza Vaccine (#1) 2023 3, 12/26/2021, 12/16/2020, Additional history exists Fasting Glucose for Diabetes Screening 11/19/2024 11/19/2021, 12/31/2020, 09/26/2018, Additional history exists Lipid (Cholesterol) Screening 11/19/2026 11/19/2021, 09/26/2018 Colonoscopy 05/30/2028 05/30/2018 Colorectal Cancer Screening 05/30/2028 DTaP,Tdap,and Td Vaccines (3 - Td or Tdap) 12/31/2030 12/31/2020, 06/18/2010 Zoster Vaccines Completed 01/06/2018, 11/03/2017 HPV Vaccines Aged Out No longer eligi ble based on patient's age to complete this topic IPV Vaccines Aged Out No longer eligi ble based on patient's age to complete this topic Medical Devices Implanted Type Area Tire Trimmer Hand Device Identifier Shelf Expiration Date Model / Serial / Lot Clp Hrzn Ti 6 Clp Sm Red - [id number] Implanted:Qty : 1 on 04/22/2021 by Melonie Baron D.O. at [facility] Hardware e.g. pins/screws/ rods [employer] / / Clp Hrzn Ti 6 Clp Sm Red - [id number] Implanted:Qty : 1 on 04/22/2021 by Melonie Baron D.O. at [facility] Hardware e.g. pins/screws/ rods [employer] / / Clp Hrzn Ti 6 Clp Sm Red - [id number] Implanted:Qty : 1 on 04/22/2021 by Melonie Baron D.O. at [facility] Hardware e.g. pins/screws/ rods [employer] / / Clp Hrzn Ti 6 Clp Sm Red - [id number] Implanted:Qty : 1 on 04/22/2021 by Delon Paz M.D. at [facility] Hardware e.g. pins/screws/ rods [employer] / / Clp Hrzn Ti 6 Clp Md Dick - [id number] Implanted:Qty : 1 on 04/22/2021 by Melonie Baron D.O. at [facility] Hardware e.g. pins/screws/ rods [employer] [id number] 05/28/2025 / / [id number] Clp Hrzn Ti 6 Clp Sm Red - [id number] Implanted:Qty : 1 on 04/22/2021 by Melonie Baron D.O. at [facility] Hardware e.g. pins/screws/ rods [employer] [id number] 08/28/2025 / [id number] Clp Hrzn Ti 6 Clp Md Dick - [id number] Implanted:Qty : 1 on 04/22/2021 by Melonie Baron D.O. at [facility] Hardware e.g. pins/screws/ rods [employer] [id number] 05/28/2025 / [id number] Clp Hrzn Ti 6 Clp Sm Red - [id number] Implanted:Qty : 1 on 04/22/2021 by Melonie Baron D.O. at [facility] Hardware e.g. pins/screws/ rods [employer] [id number] 08/28/2025 / [id number] Clp Hrzn Ti 6 Clp Sm Red - [id number] Implanted:Qty : 1 on 04/22/2021 by Melonie Baron D.O. at [facility] Hardware e.g. pins/screws/ rods [employer] [id number] 08/28/2025 / [id number] Clp Hrzn Ti 6 Clp Sm Red - [id number] Implanted:Qty : 1 on 04/22/2021 by Melonie Baron D.O. at [facility] Hardware e.g. pins/screws/ rods [employer] [id number] 08/28/2025 / [id number] Clp Hrzn Ti 6 Clp Sm Red - [id number] Implanted:Qty : 1 on 04/22/2021 by Melonie Baron D.O. at [facility] Hardware e.g. pins/screws/ rods [employer] [id number] 08/28/2025 / / [id number] Clp Hrzn Ti 6 Clp Sm Red - [id number] Implanted:Qty : 1 on 04/22/2021 by Melonie Baron D.O. at [facility] Hardware e.g. pins/screws/ rods [employer] [id number] 12/15/2025 / [id number] Clp Hrzn Ti 6 Clp Sm Red - [id number] Implanted:Qty : 1 on 04/22/2021 by Melonie Baron D.O. at [facility] Hardware e.g. pins/screws/ rods [employer] [id number] 12/22/2025K2100629 Clp Hrzn Ti 6 Clp Sm Red - [id number] Implanted:Qty : 1 on 04/22/2021 by Melonie Baron D.O. at [facility] Hardware e.g. pins/screws/ rods [employer] [id number] 12/22/2025 / [id number] Clp Hrzn Ti 6 Clp Sm Red - [id number] Implanted:Qty : 1 on 04/22/2021 by Melonie Baron D.O. at [facility] Hardware e.g. pins/screws/ rods [employer] [id number] 08/28/2025 / [id number] Clp Hrzn Ti 6 Clp Md Dick - [id number] Implanted:Qty : 1 on 04/22/2021 by Melonie Baron D.O. at [facility] Hardware e.g. pins/screws/ rods [employer] [id number] 05/28/2025 / / [id number] Clp Hrzn Ti 6 Clp Sm Red - [id number] Implanted:Qty : 1 on 04/22/2021 by Melonie Baron D.O. at [facility] Hardware e.g. pins/screws/ rods [employer] [id number] 08/28/2025 / / [id number] Clp Hrzn Ti 6 Clp Md Dick - [id number] Implanted:Qty : 1 on 04/22/2021 by Melonie Baron D.O. at [facility] Hardware e.g. pins/screws/ rods [employer] [id number] 09/15/2025 [id number] / / [id number] Clp Hrzn Ti 6 Clp Sm Red - [id number] Implanted:Qty : 1 on 04/22/2021 by Melonie Baron D.O. at [facility] Hardware e.g. pins/screws/ rods [employer] [id number] 12/22/2025 / / [id number] Clp Hrzn Ti 6 Clp Sm Red - [id number] Implanted:Qty : 1 on 04/22/2021 by Melonie Baron D.O. at [facility] Hardware e.g. pins/screws/ rods [employer] [id number] 12/15/2025 / / [id number] Clp Hrzn Ti 24 Clp Md Dick - [id number] Implanted:Qty : 1 on 04/22/2021 by Melonie Baron D.O. at [facility] Hardware e.g. pins/screws/ rods [employer] [id number] / / Clp Hrzn Ti 6 Clp Sm Red - [id number] Implanted:Qty : 1 on 04/22/2021 by Delon Paz M.D. at [facility] Hardware e.g. pins/screws/ rods [employer] [id number] 12/08/2025 / / [id number] Clp Hrzn Ti 6 Clp Sm Red - [id number] Implanted:Qty : 1 on 04/22/2021 by Delon Paz M.D. at [facility] Hardware e.g. pins/screws/ rods [employer] [id number] 08/28/2025 / / [id number] Clp Hrzn Ti 24 Clp Md Dick - [id number] Implanted:Qty : 1 on 04/22/2021 by Delon Paz M.D. at [facility] Hardware e.g. pins/screws/ rods [employer] [id number] 01/12/2026 [id number] / / [id number] Clp Hrzn Ti 6 Clp Sm Red - [id number] Implanted:Qty : 1 on 04/22/2021 by Melonie Baron D.O. at [facility] Hardware e.g. pins/screws/ rods [employer] [id number] / / Clp Hrzn Ti 6 Clp Sm Red - [id number] Implanted:Qty : 1 on 04/22/2021 by Melonie Baron D.O. at [facility] Hardware e.g. pins/screws/ rods [employer] [id number] / / Clp Hrzn Ti 6 Clp Sm Red - [id number] Implanted:Qty : 1 on 04/22/2021 by Melonie Baron D.Genny. at [facility] Hardware e.g. pins/screws/ rods [employer] / / Clp Hrzn Ti 6 Clp Sm Red - [id number] Implanted:Qty : 1 on 04/22/2021 by Melonie Baron D.O. at [facility] Hardware e.g. pins/screws/ rods [employer] [id number] / / Clp Hrzn Ti 6 Clp Sm Red - [id number] Implanted:Qty : 1 on 04/22/2021 by Delon Paz M.D. at [facility] Hardware e.g. pins/screws/ rods [employer] [id number] / / Clp Hrzn Ti 6 Clp Sm Red - [id number] Implanted:Qty : 1 on 04/22/2021 by Melonie Baron D.O. at [facility] Hardware e.g. pins/screws/ rods [employer] / / Explanted Type Area Tire Trimmer Hand Device Identifier Shelf Expiration Date Model / Serial / Lot VincentByrne 600 - [id number] Implanted:Qty: 2 on 12/10/2000 Explanted:Qty: 2 on 04/22/2021 by Melonie Baron D.O. at [facility] Breast Implant [employer] Description:Device Manufactu rer - [place] [employer]. Device Status Text - [id number]. Implanted Port Single Lumen-08/22/2020 Implanted: 021 (Quantity not on file) Explanted: 022 (Quantity not on file) Implanted Port Single Lumen Right: Chest Description:Care Everywhere: [facility]: Summary of Episode Note received on 02/06/2021: Implanted Devices Device Date Implanted/Device Details PowerPort [employer] Implantable Port August 22, 2020 DARIEL: [id number] Issuing Agency: [employer] Device Id: [id number] Expiration Date: 2021-12-05 Lot Number: [id number] Procedures Procedure Name Priority Date/Time Associated Diagnosis [...] Date Last Indicated Protective Environment 07/20/2023 4 Insurance [facility] Advance Directives For more information, please contact: [phone] * Full Code (Latest Code Status on File) Date Activated Date Inactivated Comments 04/22/2021 5:45 AM 04/28/2021 1:44 PM Question Answer Comments Full Code: Not Discussed Due to: Not medically appropriate
--- OUTSIDE RECORDS SUMMARY | 2024-02-10 13:58 | XMS_ITS ---
Author Organization [facility] Address [address] [place] [address] Care Team Providers Care Builder'S Labourer Name Role Phone Unavailable Primary Care Provider [...] Status Post 03/11/2017 Overview (04/22/2021): Per 2001 [place] note meningococcus vaccine, H Flu and MMR [...] On Elapsed Days Session Dose Total Dose [id number] 03/18/2021 36 175 cGy 5,000 cGy
--- OUTSIDE RECORDS SUMMARY | 2024-02-10 13:58 | XMS_ITS | Clinical Summary ---
Author Organization [facility] Address [place], [place] [address] Care Team Providers Care Biodiesel Process Control Technician Name Role Phone Sofia Manuel MD Primary Care Provider [phone] Allergies Active Allergy Reactions Criticality Noted Date [...] discrete masses in the breast. ER and [place] positive, sentinal node negative. 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 [phone] Sofia Manuel MD from Last 3 Months Immunizations Name Administration Dates Next Due AMB INFLUENZA, IIV4 (AGE=>6M OS) MDV (Flu Clinic Only) 12/24/2016 COVID-19 vaccine ([employer] 30mcg/0.3mL) 12YO+ BIVALENT PF, MDV 11/19/2021 COVID-19 vaccine ([employer] 30mcg/0.3mL) PF, MDV 01/01/2021 Influenza A [...] Comments Blood Pressure 113/66 03/06/2022 12:53 PM [facility] Pulse 90 03/06/2022 12:53 PM [facility] Temperature 36.6 C (97.9 F) 12/31/2020 4:30 PM CDT Respiratory Rate 20 03/17/2017 2:13 PM [facility] Oxygen Saturation 100% 03/06/2022 12:53 PM [facility] Inhaled Oxygen Concentration - - Weight 76.7 kg (169 lb) 03/06/2022 12:53 PM [facility] Height 176.5 cm (5' 9.5) 03/06/2022 12:53 PM CS T Body Mass Index 24.6 03/06/2022 12:53 PM [facility] Plan of Treatment Health Maintenance Due Date Last Done Comments Pneumococcal series for age 6-64 (3 of 3 - PPSV23 or PCV20) 09/22/2022 09/22/2017, 09/16/2015 Depression screening for age 12+ 11/19/2022 11/19/2021, 11/18/2020, 11/18/2020, Additional history exists BMI (ht and wt on same day) for age 18+ 03/06/2023 03/06/2022, 01/22/2022, 11/19/2021, Additional history exists COVID-19 vaccine series ( season) 2023 11/19/2021, 01/01/2021, 12/11/2020 Influenza for age 50-64 11/07/2023 12/27/19, 12/16/2020, 12/16/2020, Additional history exists Lipids for age 45-75 11/19/2026 11/19/2021, 09/26/2018, 09/21/2016, Additional history exists Colonoscopy through age 75 05/30/2028 05/30/2018 Pap test for age 21-65 11/15/2028 , 09/26/2018, 09/26/2018, Additional history exists Tetanus booster 12/31/2030 12/31/2020, 06/06, 12/31/2000 HIV for age 15-65 Completed 03/17/2017 Hepatitis C screening for ag e 18-79 Completed 03/17/2017 Zoster (shingles) series for age 50+ Completed 01/06/2018, 11/03/2017 Tdap Completed 12/31/2020, 06/18/2010 Medical Devices Implanted Type Area Trouble Lineman Device Identifier Shelf Expiration Date Model / Serial / Lot Graft Vasc 8mm 30cmmm Hemashield Gold Stra - [id number] Implanted:Qty: 1 on 04/09/2014 by Lg Russo MD at [facility] Grafts Left: Carotid Artery [employer] 03/07/2017 [id number] / / [id number] Mammary [id number]] Implanted:Qty: 1 on 08/27/2009 at [facility] Explanted:at [facility] (Quantity not on file) Right: Breast [employer] [id number] C# / [id number] / [id number] Mammary [id number] [[id number]] Implanted:Qty: 1 on 08/27/2009 at [facility] Explanted:at [facility] (Quantity not on file) Left: Breast [employer] [id number] C# / [id number] / [id number] Procedures Procedure Name Priority Date/Time Associated Diagnosis Comments LAB TRACKING EVENT Routine 11/16/2023 8: 30 AM CDT SUPERVISOR LEAF SPRING FABRICATION THIN PREP PAP SCREEN IMAGED- Unsuccessful Attempt Routine 11/16/2023 8:30 AM CDT HPV HIGH RISK Routine 11/16/2023 8:30 AM CDT LIPID PANEL W REFLEX MEASURED LDL Routine 11/19/2021 9:06 AM CDT HTN (hypertension) SCAN-COLONOSCOPY 05/30/2018 2:30 PM CDT ANTI HIV 1/2 Early AM 03/17/2017 6:55 AM [facility] ANTI HCV Early AM 03/17/2017 6:55 AM [facility] from Last 3 Months or Most Recently Relevant to Health Maintenance Results * LAB TRACKING EVENT (11/16/2023 8:30 AM CDT) Other (Other) Client Collect / Unknown 11/16/2023 8:30 AM CDT 11/16/2023 3:50 PM CDT Sofia Manuel MD LAB BILL ONLY [facility] [address] [place] [address], * SUPERVISOR LEAF SPRING FABRICATION THIN PREP PAP SCREEN IMAGED (11/16/2023 8:30 AM CDT) - Unsuccessful Attempt Case Report Gynecologic Cytology Report Case: [id number] Authorizing Provider: Sofai Manuel MD Collected: 11/16/2023 0830 Ordering Location: [facility] Received: 11/16/2023 1618 First Screen: Tavon Doe Rescreen: Mariah Mcleod Specimen: SUPERVISOR LEAF [employer]ING FABRICATION ThinPrep Vial Screening, Cervical 11/30/2023 7:27 AM CDT [facility] INTERPRETATION/ RESULT UNSATISFACTORY FOR EVALUATION (UNS) (none) 11/30/2023 7:27 AM CDT [facility] IMEN ADEQUACY Specimen processed and examined, but unsatisfactory for evaluation of epithelial abnormality because of: Scant cellularity Obscuring Inflammation 11/30/2023 7:27 AM CDT [facility] HPV REQUEST HPV and PAP 11/30/2023 7:27 AM CDT [facility] Date of LMP 11/30/2023 7:27 AM CDT [facility] Comment:2001 Last Pap Date 11/30/2023 7:27 AM CDT [facility] Comment:09/2018 Last Pap Result 7:27 AM CDT [facility] Comment:normal Abnormal Pap or Gilchrist Bx in last 5 years No 11/30/2023 7:27 AM CDT [facility] Menstrual Status Postmenopausal 11/30/2023 7:27 AM CDT [facility] Gilchrist Bx Done Today No 11/30/2023 7:27 AM CDT [facility] Additional Information 11/30/2023 7:27 AM CDT [facility] Comment: Interpreted at [facility] - [address] [facility] [address], [place] [address] Automated Review Successful 11/30/2023 7:27 AM [facility] Comment:Specimen processed s uccessfully by automated network professional device, ThinPrep Imaging System, [employer] ANCILLARY TESTING SUPERVISOR LEAF [employer]ING FABRICATION HPV Ordered, Please see separate report 11/30/2023 7:27 AM T [facility] Note The pap test is a screening technique, not a diagnostic procedure. It is used primarily to screen for squamous cancers and precursor lesions. Published studies have shown that it is subject to both false negative and false positive results. The pap test should not be used as the sole means to diagnose or exclude pre-malignant and malignant lesions. 11/30/2023 7:27 AM T [facility] Other (Cervical) 11/16/2023 8:30 AM CDT 11/16/2023 4:18 PM CDT Sofia Manuel MD PATHOLOGY/CYTOLOGY [facility] [address] [place] [address], * HPV HIGH RISK (11/16/2023 8:30 AM CDT) TYPE 16 Negative Negative 11/19/2023 5:09 PM CDT [facility] TYPE 18 Negative Negative 11/19/2023 5:09 PM CDT [facility] OTHER HIGH RISK TYPES Negative Negative 11/19/2023 5:09 PM CDT [facility] Other (Cervical) Client Collect / Unknown 11/16/2023 8:30 AM CDT 11/16/2023 4:18 PM CDT Narrative [facility] - 11/19/2023 5:09 PM CDT HPV types 16, 18, 31, 33, 35, 39, 45, 51, 52, 56, 58, 59, 66 and 68 DNA were undetectable or below the pre-set threshold. Methodology: [employer] Amanda 4800 HPV Test Sofia Manuel MD MICROBIOLOGY [facility] [address] [place] [address], * (ABNORMAL) LIPID PANEL W REFLEX MEASURED LDL (11/19/2021 9:06 AM CDT) CHOLESTEROL,TOTAL 210(H) 100 - 199 mg/dL 11/19/2021 5:15 PM CDT [facility] TRIGLYCERIDES 169(H) <150 mg/dL 11/19/2021 5:15 PM CDT [facility] HDL CHOLESTEROL 58 >40 mg/dL 5:15 PM CDT [facility] NON-HDL CHOLESTEROL 152(H) <145 [...] 9:07 AM CDT Jeanette Merino MD CHEMISTRY [facility] [address] [place] [address], [place] * SCAN-COLONOSCOPY (05/30/2018 2:30 PM CDT) Narrative Procedure Note Rufus Casarez MD - 05/30/2018 1:14 PM CDT [facility] [address], [address], [place] [address] Patient Name: Carolyn Cox Gender: Female Exam Date: 05/30/2018 Visit Number: [id number] Age: 52 Years 9 Months Date of : 1965 Attending MD: Rufus Casarez MD Medical Record#: [id number] ----- Procedure: Colonoscopy Indications: Colorectal cancer screening Referring MD: Michael Headley MD Primary MD: Jeanette Merino MD Medications: Admitting Medications: 0.9% Normal Saline at TKO Intra Procedure Medications: Patient received monitored anesthesia [...] 26.50 Race: Ethnicity: Not or Preferred Language: Uruguayan cc: Jeanette Merino MD cc: Michael Headley MD [facility] [phone] Rufus Casarez MD OTHER * Anti-hepatitis C AM (03/17/2017 6:55 AM [facility]) HEPATITIS C ANTIBODY Non-Reacti ve Non-Reacti ve 03/17/2017 7:47 AM [facility] Blood BLOOD SPECIMEN / Unknown Butterfly / Unknown 03/17/2017 6:55 AM [facility] 03/17/2017 7:03 AM [facility] Narrative [facility] - 03/17/2017 7:47 AM [facility] Antibodies to HCV not detected; does not exclude the possibility of exposure to HCV. Ty Martinez MD SEND OUTS [facility] [address] [place] [address], [place] * HIV 1&2 TODAY (03/17/2017 6:55 AM [facility]) Pathologist [facility] HIV-1/HIV-2 ANTIBODY Non-Reacti ve Non-Reacti ve 03/17/2017 7:51 AM [facility] Blood BLOOD SPECIMEN / Unknown Butterfly / Unknown 03/17/2017 6:55 AM [facility] 03/17/2017 7:03 AM [facility] Narrative [facility] - 03/17/2017 7:51 AM [facility] HIV-1 p24 and HIV-1/HIV-2 Ab not detected Ty Martinez MD SEND OUTS [facility] [address] [place] [address], from Last 3 Months or Most Recently [...] 2:13 AM 09/21/2011 9:50 AM Care Teams Biodiesel Process Control Technician Relationship Specialty Start Date End Date Sofia Manuel MD [address] [place] [address] PCP - General Internal Medicine 12/14/22
--- OUTSIDE RECORDS SUMMARY | 2024-02-10 13:58 | XMS_ITS ---
Author Organization [facility] Address [address] [place] [address] Care Team Providers Care Automobile Washer Steam Name Role Phone Unavailable Unavailable Unavailable Surgery Details Not on file Complications Check Surgery Details section. Procedure Estimated Blood Loss Check Surgery Details section. Procedure Findings Check Surgery Details section. Procedure Specimens Taken Check Surgery Details section.
--- NOTE | 2024-02-10 15:00 | CRLHL7_ITS ---
For Patients: As a result of the Century Cures Act, medical imaging exams and procedure reports are released immediately into your electronic medical record. You may view this report before your referring provider. If you have questions, please contact your health care provider. INDICATION: 58 year-old female. Prior thyroidectomy for a well-differentiated thyroid cancer in 2012. Remote history of Hodgkin`s lymphoma in 1978, status post splenectomy and mantle radiation therapy. History of diffuse large B-cell lymphoma March 2017 status post chemotherapy. History of breast cancer diagnosed in 2000 status post bilateral mastectomies, sentinel lymph node dissection, and chemotherapy. History of recurrent breast cancer in 2009 and 2020. Resection. Chemotherapy. Follow up. Restaging. TECHNIQUE: Contrast-enhanced chest CT. 85 cc nonionic Isovue-370 administered. COMPARISON: Contrast-enhanced chest CT July 22, 2021. Correlation is made with a more recent PET/CT scan October 08, 2022. FINDINGS: There are postsurgical changes from bilateral mastectomies. Resolution of the previously described fluid collections within the left anterior chest wall soft tissues and right anterior chest wall/right axilla when compared to July 22, 2021. Surgically absent thyroid gland. Subtle postradiation type changes within the paramediastinal upper lobes on a chronic basis seen previously and unchanged. A previously suggested 4 mm lingular nodule left upper lobe of the lung is not seen today. Tubular shaped nodular densities within the lateral right middle lobe of the lung unchanged. These were mentioned on the prior PET/CT scan and did not demonstrate increased tracer uptake. No new nodules or infiltrates. No pleural or pericardial effusions. Normal-caliber thoracic aorta containing scattered vascular calcification. No central pulmonary emboli. Images of the upper abdomen demonstrate normal adrenal glands. Surgically absent spleen. The included skeleton is negative for lytic or blastic lesions. IMPRESSION : 1. No evidence for recurrent or metastatic disease. 2. Stable tubular shaped nodularity lateral right middle lobe of the lung. No lingular nodule. 3. Resolution of the previously identified fluid collections within the left chest wall, right anterolateral chest wall and right axilla when compared to July 22, 2021. 4. Postsurgical and post treatment changes including absent thyroid gland, breasts, and spleen. Please note that all CT scans at this facility use dose modulation, iterative reconstruction, and/or weight-based dosing when appropriate to reduce radiation dose to as low as reasonably achievable. Dictated by Lavon Calderón MD @ 02/14/2024 10:58:59 AM (Electronically Signed)
--- NOTE | 2024-02-10 15:30 | CRLHL7_ITS ---
For Patients: As a result of the Century Cures Act, medical imaging exams and procedure reports are released immediately into your electronic medical record. You may view this report before your referring provider. If you have questions, please contact your health care provider. DXA BONE MINERAL DENSITY STUDY Reason for exam: Osteopenia. Current height (in): 70. Weight (lb): 190. Menopause age: 35. Ethnicity: White. 1. Have you had a previous hip or vertebral fracture? No. 2. Have you had any fractures during your adult life which did not result from significant trauma (e.g., auto accident)? No. 3. Did either of your parents have a hip fracture? No. 4. Do you smoke? No. 5. Have you ever taken Glucocorticoids? Yes. 6. Do you have rheumatoid arthritis? No. 7. Do you have secondary osteoporosis? No. 8. Do you drink 3 or more alcoholic drinks per day? No. 9. Are you being treated for osteoporosis? No. 10. Have you ever taken any of the following medications: Actonel, Evista, Fosamax, Miacalcin, Reclast, Boniva, Forteo, HRT (i.e., estrogen/hormone therapy), Protelos, Prolia, Vitamin D, Calcium, other ??? please specify. ANSWER: Yes, vitamin D, Prolia (i.e., denosumab), and calcium. 11. Do you have any of the following medical conditions: Anorexia or bulimia, asthma or emphysema, end stage renal disease, hyperparathyroidism, any seizure disorders, cancer, inflammatory bowel diseases, hysterectomy, other ??? please specify. ANSWER: Yes, cancer, breast. 12. What was your maximum height (inches)? 71. 13. Do you perform weight bearing exercise regularly? No. 14. Do you regularly consume dairy products? Yes. 15. Do you drink caffeinated beverages? Yes. 16. At what age did your period start? 14. 17. Are you premenopausal? No. 18. How many full-term pregnancies have you had? 3. 19. Have you ever missed your period for more than 6 months in a row (not including or menopause)? No. TECHNIQUE: Bone mineral density study was performed using the [employer]. FINDINGS: The results of the study expressed as bone mineral density (BMD) are as follows: Lumbar spine L1 to L3: BMD: 1.138 g/cm2. T-score: 1.1. Z-score: 2.4 Neck Left: BMD: 0.713 g/cm2. T-score: -1.2. Z-score: 0.0 Right: BMD: 0.789 g/cm2. T-score: -0.5. Z-score: 0.7 Total Left: BMD: 0.944 g/cm2. T-score: 0.0. Z-score: 0.9 Right: BMD: 0.967 g/cm2. T-score: 0.2. Z-score: 1.1 IMPRESSION: Osteopenia. *Comparison exams done prior to 08/2019 were performed on different unit, [facility]. COMPARISON: Compared with scan of 01/29/2021, the bone mineral density has increased by 5.8 percent at the spine and decreased by 1.2 percent at the hip. FRAX 10-year Fracture Risk Major Osteoporotic Fracture: 11% Hip Fracture: 0.8% Reported Risk Factors: [place] () Neck BMD=0.713, BMI=27.3, glucocorticoids. Liudmila Curiel M.D. Diagnostic Radiologist [email or web address] TONY/jaspal shay/Dictated by: Liudmila Curiel MD @ 02/11/2024 9:01:00 AM (Electronically Signed)
== END 2024-02-10 13:56 | disposition home or self-care (01) ==
LOC: CT 13:55
PROVIDERS: PCP Internal Medicine; Visit Provider Internal Medicine Hematology & Oncology
DX: C50.912 Malignant neoplasm of unspecified site of left female breast (principal); R91.8 Other nonspecific abnormal finding of lung field; M85.89 Other specified disorders of bone density and structure, multiple sites
CPT/HCPCS: 71260; 77080; Q9967

== ENCOUNTER 2024-02-14 09:00 | Outpatient (RCR) | payer OTHER, SELFPAY ==
[2023-11-18 13:03] LABS: Basophils Absolute Auto 0.11 K/uL (0.00-0.30); Eosinophils Absolute Auto 0.34 K/uL (0.00-0.50); Eosinophils Percent Auto 3.2 % (0.0-7.0); Hematocrit 43.1 % (33.0-51.0); Hemoglobin* 13.9 gm/dL (12.0-16.0); Immature Granulocytes Abs Auto 0.02 K/uL (0.00-0.30); Immature Granulocytes Pct Auto 0.2 %; Lymphocytes Absolute Auto 4.23 K/uL (0.90-2.90); Lymphocytes Percent Auto 39.6 % (20-44); Mean Corpuscular HGB Conc 32 gm/dL (32-36); Mean Corpuscular Hemoglobin 31 pg (26-34); Mean Corpuscular Volume 95 fL (80-100); Monocytes Percent Auto 12.5 % (0.0-11.0); Neutrophils Absolute Auto 4.65 K/uL (1.7-7.0); Neutrophils Percent Auto 43.5 % (42.0-72.0); Platelet Count* 466 K/uL (140-440); Red Blood Count 4.53 m/uL (4.00-5.20); White Blood Count* 10.68 K/uL (4.50-11.00)
[2023-11-18 13:22] LABS: Albumin* 4.8 g/dL (3.3-5.0)
[2023-11-18 13:23] LABS: Chloride* 96 mmol/L (96-114); Sodium* 135 mmol/L (135-149)
[2023-11-18 13:25] LABS: Alkaline Phosphatase* 119 U/L (40-150); Anion Gap 10 mEq/L (7-15); Aspartate Amino Transferase* 44 U/L (12-35); Bilirubin Total* 1.3 mg/dL (0.1-1.5); Carbon Dioxide* 29 mmol/L (20-32); Creatinine* 0.9 mg/dL (0.5-1.5); Estimated Glomerular Filt Rate 74 ml/min
[2023-11-18 13:26] LABS: Alanine Aminotransferase* 30 U/L (4-35); Blood Urea Nitrogen* 27 mg/dL (7-30); Calcium* 9.3 mg/dL (8.4-10.6); Glucose* 94 mg/dL (60-115); Lactate Dehydrogenase* 213 U/L (120-246)
[2023-11-18 13:44] LABS: Slide Review Reflex No
[2024-02-10 14:32] LABS: Eosinophils Absolute Auto 0.38 K/uL (0.00-0.50); Eosinophils Percent Auto 3.7 % (0.0-7.0); Hematocrit 39.7 % (33.0-51.0); Hemoglobin* 12.7 gm/dL (12.0-16.0); Immature Granulocytes Abs Auto 0.03 K/uL (0.00-0.30); Immature Granulocytes Pct Auto 0.3 %; Lymphocytes Absolute Auto 3.55 K/uL (0.90-2.90); Lymphocytes Percent Auto 34.5 % (20-44); Mean Corpuscular HGB Conc 32 gm/dL (32-36); Mean Corpuscular Hemoglobin 29 pg (26-34); Mean Corpuscular Volume 91 fL (80-100); Monocytes Percent Auto 12.5 % (0.0-11.0); Neutrophils Absolute Auto 4.94 K/uL (1.7-7.0); Platelet Count* 386 K/uL (140-440); RDW Coefficient of Variation % 14.4 % (11.5-15.5); Red Blood Count 4.38 m/uL (4.00-5.20); White Blood Count* 10.28 K/uL (4.50-11.00)
[2024-02-10 14:36] LABS: Slide Review Reflex No
[2024-02-10 14:49] LABS: Chloride* 100 mmol/L (96-114)
[2024-02-10 14:50] LABS: Albumin* 4.2 g/dL (3.3-5.0); Potassium* 4.1 mmol/L (3.6-5.1); Sodium* 138 mmol/L (135-149)
[2024-02-10 14:52] LABS: Creatinine* 1.1 mg/dL (0.5-1.5); Estimated Glomerular Filt Rate 58 ml/min
[2024-02-10 14:53] LABS: Alanine Aminotransferase* 22 U/L (4-35); Alkaline Phosphatase* 105 U/L (40-150); Anion Gap 7 mEq/L (7-15); Aspartate Amino Transferase* 31 U/L (12-35); Bilirubin Total* 0.5 mg/dL (0.1-1.5); Blood Urea Nitrogen* 30 mg/dL (7-30); Carbon Dioxide* 31 mmol/L (20-32); Glucose* 104 mg/dL (60-115); Total Protein* 7.4 g/dL (6.0-8.3)
[2024-02-10 14:54] LABS: Calcium* 9.3 mg/dL (8.4-10.6)
[2024-02-14] MEDS: DENOSUMAB 60 MG/ML SYRINGE SUBCUT (09:19)
== END 2024-05-16 23:59 | disposition home or self-care (01) ==
LOC: CCIC 09:00
PROVIDERS: PCP Internal Medicine; Referring Provider Internal Medicine; Visit Provider Internal Medicine Hematology & Oncology
DX: C50.911 Malignant neoplasm of unspecified site of right female breast (principal); C50.912 Malignant neoplasm of unspecified site of left female breast; Z17.0 Estrogen receptor positive status [ER+]; M85.80 Other specified disorders of bone density and structure, unspecified site; Z90.13 Acquired absence of bilateral breasts and nipples; Z85.850 Personal history of malignant neoplasm of thyroid; Z85.71 Personal history of Hodgkin lymphoma
CPT/HCPCS: 36415; 78815; 80053; 83615; 85025; 96372; 99211; 99214; 99215; G0463; A9552; J0897

== ENCOUNTER 2024-05-18 13:29 | Outpatient (CLI) | payer OTHER, SELFPAY ==
--- NOTE | 2024-05-18 14:00 | CRLHL7_ITS ---
For Patients: As a result of the Century Cures Act, medical imaging exams and procedure reports are released immediately into your electronic medical record. You may view this report before your referring provider. If you have questions, please contact your health care provider. PET CT SKULL TO THIGH History: Lymphoma and breast cancer Technique: The patient was injected with 10.5 millicuries of 18F-FDG (fluorodeoxyglucose). Following the appropriate delay interval, PET imaging from the mid brain to the mid thigh was obtained in conjunction with a noncontrast CT examination for improved localization and attenuation correction. The fused volume set was reviewed utilizing 3-D reconstruction. Blood glucose: 178 Comparison: PET-CT 11/18/2023 Findings: Max SUV within the liver today is 4.0, previously 3.7 PET: Head and Neck: The paired glandular structures and muscles of the neck are symmetrical. No focal area of increased uptake is identified. Thorax: Soft tissue thickening within the left upper chest wall measures 15 millimeters and has a max SUV of 4.6, previously 15 millimeters with a max SUV of 4.8. Bilateral mastectomies are redemonstrated with similar avidity throughout the postsurgical changes with left max SUV up to 4.1, previously 4.4; and with right maximum SUV of 3.2, previously 3.1. Focal avidity within the left axilla without definite CT correlate is unchanged with a max SUV of 5.1, previously 5.2. Abdomen/Pelvis: No focal areas of increased uptake. Bones/soft tissues: No focal areas of increased uptake. ADDITIONAL CT findings include stable atherosclerotic calcifications, stable sequela of prior granulomatous disease, small gallstones, splenectomy, few scattered colonic diverticula, healed/old rib fractures and stable degenerative changes within the spine. IMPRESSION: Stable study Dictated by David Kitchen MD @ 05/19/2024 4:02:10 PM (Electronically Signed)
== END 2024-05-18 13:30 | disposition home or self-care (01) ==
LOC: RAD 13:29
PROVIDERS: PCP Internal Medicine; Visit Provider Internal Medicine Hematology & Oncology
DX: C50.412 Malignant neoplasm of upper-outer quadrant of left female breast (principal)
CPT/HCPCS: 78815; A9552

== ENCOUNTER 2024-10-16 12:30 | Outpatient (RCR) | payer OTHER, SELFPAY ==
[2024-05-18 13:48] LABS: Hematocrit 41.3 % (33.0-51.0); Hemoglobin* 13.5 gm/dL (12.0-16.0); Immature Granulocytes Pct Auto 0.2 %; Mean Corpuscular HGB Conc 33 gm/dL (32-36); Mean Corpuscular Hemoglobin 30 pg (26-34); Mean Corpuscular Volume 91 fL (80-100); RDW Coefficient of Variation % 14.5 % (11.5-15.5); Red Blood Count 4.52 m/uL (4.00-5.20); White Blood Count* 11.04 K/uL (4.50-11.00)
[2024-05-18 13:54] LABS: Immature Granulocytes Abs Auto 0.00 K/uL (0.00-0.30); Lymphocytes Absolute Auto 4.30 K/uL (0.90-2.90); Slide Review Reflex No
[2024-05-18 14:02] LABS: Albumin* 4.8 g/dL (3.3-5.0); Chloride* 96 mmol/L (96-114)
[2024-05-18 14:03] LABS: Potassium* 3.9 mmol/L (3.6-5.1); Sodium* 136 mmol/L (135-149)
[2024-05-18 14:05] LABS: Alkaline Phosphatase* 96 U/L (40-150); Anion Gap 11 mEq/L (7-15); Aspartate Amino Transferase* 32 U/L (12-35); Bilirubin Total* 1.3 mg/dL (0.1-1.5); Blood Urea Nitrogen* 29 mg/dL (7-30); Carbon Dioxide* 29 mmol/L (20-32); Creatinine* 0.9 mg/dL (0.5-1.5); Estimated Glomerular Filt Rate 74 ml/min; Total Protein* 8.3 g/dL (6.0-8.3)
[2024-05-18 14:06] LABS: Alanine Aminotransferase* 28 U/L (4-35); Calcium* 9.4 mg/dL (8.4-10.6); Glucose* 97 mg/dL (60-115)
[2024-08-11 08:46] LABS: Hematocrit 40.9 % (33.0-51.0); Hemoglobin* 13.1 gm/dL (12.0-16.0); Immature Granulocytes Abs Auto 0.03 K/uL (0.00-0.30); Immature Granulocytes Pct Auto 0.3 %; Lymphocytes Absolute Auto 3.39 K/uL (0.90-2.90); Mean Corpuscular HGB Conc 32 gm/dL (32-36); Mean Corpuscular Hemoglobin 29 pg (26-34); Mean Corpuscular Volume 92 fL (80-100); RDW Coefficient of Variation % 14.4 % (11.5-15.5); Red Blood Count 4.45 m/uL (4.00-5.20); White Blood Count* 10.61 K/uL (4.50-11.00)
[2024-08-11 08:50] LABS: Slide Review Reflex No
[2024-08-11 08:59] LABS: Albumin* 4.5 g/dL (3.3-5.0); Chloride* 100 mmol/L (96-114); Potassium* 4.7 mmol/L (3.6-5.1); Sodium* 140 mmol/L (135-149)
[2024-08-11 09:02] LABS: Alanine Aminotransferase* 29 U/L (4-35); Alkaline Phosphatase* 93 U/L (40-150); Anion Gap 8 mEq/L (7-15); Aspartate Amino Transferase* 38 U/L (12-35); Bilirubin Total* 1.0 mg/dL (0.1-1.5); Blood Urea Nitrogen* 29 mg/dL (7-30); Carbon Dioxide* 32 mmol/L (20-32); Creatinine* 1.0 mg/dL (0.5-1.5); Est. Creatinine Clearance* 63.30; Estimated Glomerular Filt Rate 65 ml/min; Total Protein* 8.0 g/dL (6.0-8.3)
[2024-08-11 09:03] LABS: Calcium* 9.8 mg/dL (8.4-10.6); Glucose* 84 mg/dL (60-115)
[2024-08-11 09:22] VITALS: BP 147/79; PULSE 88; TEMP 36.5; O2SAT 99
[2024-08-11] MEDS: DENOSUMAB 60 MG/ML SYRINGE SUBCUT (09:38)
== END 2024-11-14 23:59 | disposition home or self-care (01) ==
LOC: CCIC 12:30
PROVIDERS: PCP Internal Medicine; Referring Provider Internal Medicine; Visit Provider Internal Medicine Hematology & Oncology
DX: C50.911 Malignant neoplasm of unspecified site of right female breast (principal); Z17.0 Estrogen receptor positive status [ER+]; C50.912 Malignant neoplasm of unspecified site of left female breast; C83.30 Diffuse large B-cell lymphoma, unspecified site; M85.80 Other specified disorders of bone density and structure, unspecified site; Z90.13 Acquired absence of bilateral breasts and nipples; Z85.850 Personal history of malignant neoplasm of thyroid
CPT/HCPCS: 36415; 36592; 71260; 80053; 83615; 85025; 96372; 99214; G0463; J0897; Q9967

== ENCOUNTER 2024-11-30 07:30 | Outpatient (CLI) | payer OTHER, SELFPAY | END 2024-11-30 07:31 | disposition home or self-care (01) | LOC: NFLDREF 12-04 03:25 | PROVIDERS: PCP Internal Medicine; Referring Provider Internal Medicine; Visit Provider Internal Medicine | DX: E78.5 Hyperlipidemia, unspecified (principal); E03.9 Hypothyroidism, unspecified; M85.80 Other specified disorders of bone density and structure, unspecified site | CPT/HCPCS: 80061; 82306; 84443 ==

== ENCOUNTER 2025-01-03 15:28 | Outpatient (CLI) | payer OTHER, SELFPAY | END 2025-01-03 15:29 | disposition home or self-care (01) | LOC: NFLDREF 01-04 20:25 | PROVIDERS: PCP Internal Medicine; Referring Provider Internal Medicine | DX: N30.00 Acute cystitis without hematuria (principal) | CPT/HCPCS: 87086 ==

== ENCOUNTER 2025-01-11 12:49 | Outpatient (CLI) | payer OTHER, SELFPAY ==
--- NOTE | 2025-01-11 14:00 | CRLHL7_ITS ---
For Patients: As a result of the 21st Century Cures Act, medical imaging exams and procedure reports are released immediately into your electronic medical record. You may view this report before your referring provider. If you have questions, please contact your health care provider. Indication: CANCER FOLLOW UP Technique: CT of the chest, abdomen, and pelvis was obtained with 90 mL of Isovue 370 intravenous contrast. Oral water was administered. Please note that all CT scans at this facility use dose modulation, iterative reconstruction, and/or weight-based dosing when appropriate to reduce radiation dose to as low as reasonably achievable. Comparison: 08/11/2024, 05/18/2024, 02/10/2024. Findings: CHEST: Medical devices: None. Thyroid: Status post thyroidectomy. Lymph nodes: No supraclavicular, axillary, mediastinal, or hilar lymphadenopathy. Bilateral axillary surgical clips. Redemonstration of nonspecific mildly prominent subcentimeter mediastinal lymph nodes. Calcified right hilar lymph nodes. Vasculature: Aorta and main pulmonary artery diameters are within normal range. Mild aortic calcification. Right vertebral artery is again not well visualized and may be chronically occluded. Heart: Normal. No pericardial effusion. Other mediastinal structures: No significant abnormality. Lung parenchyma and pleura: Moderate biapical pleural-parenchymal scarring. Redemonstration of right middle lobe branching tubular opacities. Airways: No significant abnormality. Chest wall: Redemonstration of scattered sclerotic bilateral rib lesions with chronic healed bilateral rib fracture deformities. Postsurgical changes from bilateral mastectomies. ABDOMEN/PELVIS: Liver and biliary tree: Normal. The hepatic dome is partially excluded from the [id number] on the portal venous phase. Gallbladder: Cholelithiasis. Contracted. Spleen: Surgically absent. Pancreas: Normal. Adrenal glands: Normal. Kidneys and ureters: No hydronephrosis or obstructing renal calculi. Subcentimeter hypoattenuating lesions are too small to characterize and are favored to represent cysts. Gastrointestinal tract: Moderate stool burden is seen throughout the colon. No evidence of bowel obstruction. Status post appendectomy. Peritoneal cavity: Normal. Bladder: Normal. Pelvic organs: Normal. Vasculature: Moderate calcification. Lymph nodes: Normal. Abdominal wall: Normal. Musculoskeletal: Mild degenerative changes of the bilateral hips and of the visualized spine. Redemonstration of nonspecific scattered left iliac sclerotic foci. Osteopenia with heterogeneous appearance of the skeleton. Impression: 1. No new suspicious pulmonary nodules or thoracic lymphadenopathy. 2. Postsurgical changes from bilateral mastectomies. 3. Redemonstration of scattered sclerotic bilateral rib lesions with chronic healed bilateral rib fracture deformities; metastatic disease can not be excluded. 4. Redemonstration of nonspecific scattered left iliac sclerotic foci. Osteopenia with heterogeneous appearance of the skeleton is again seen. Please note that all CT scans at this facility use dose modulation, iterative reconstruction, and/or weight-based dosing when appropriate to reduce radiation dose to as low as reasonably achievable. Dictated by Naveen Ventura MD @ 01/11/2025 6:30:12 PM (Electronically Signed)
== END 2025-01-11 12:50 | disposition home or self-care (01) ==
PROVIDERS: PCP Internal Medicine; Visit Provider Internal Medicine Hematology & Oncology
DX: C50.912 Malignant neoplasm of unspecified site of left female breast (principal); M89.9 Disorder of bone, unspecified
CPT/HCPCS: 71260; 74177; Q9967

== ENCOUNTER 2025-01-30 07:16 | Outpatient (CLI) | payer OTHER, SELFPAY ==
--- NOTE | 2025-01-30 07:30 | CRLHL7_ITS ---
For Patients: As a result of the Century Cures Act, medical imaging exams and procedure reports are released immediately into your electronic medical record. You may view this report before your referring provider. If you have questions, please contact your health care provider. EXAM: FDG PET-CT Skull Base to Thighs CLINICAL INFORMATION: 59-year-old woman with history of left breast cancer. Additional history diffuse large B-cell lymphoma. Restaging. TECHNIQUE: Radiopharmaceutical: 18F-fluorodeoxyglucose (18F-FDG) Dose: 13.33 MilliCurie. Blood glucose: 90 mg/dL. Image acquisition: At approximately 60 minutes following IV tracer administration via a right antecubital vein, positron emission tomography was performed from the skull base through the mid thigh. Non-contrast low-dose helical CT imaging was performed over the same range without breath-hold for attenuation correction of PET images and anatomic correlation; it is neither sufficient, nor should it be substituted for diagnostic purposes. COMPARISON: FDG PET-CT 08/18/2024. CT chest abdomen pelvis 01/11/2025. FINDINGS: Due to technical differences between PET-CT scanners between different institutions, SUVmax values can not be directly compared with the prior study. Mediastinal blood pool FDG uptake: SUVMax 2.0 (Image 97) Liver background parenchymal FDG uptake: SUVMax 2.9 (Image 148) PET Findings: Bilateral mastectomies. Asymmetric mild FDG uptake in skeletal muscles of the left chest wall is favored to represent post radiation inflammatory changes. No abnormal focal increased FDG uptake in the chest wall. No abnormal FDG avid lymphadenopathy. No abnormal FDG uptake in the visualized skeleton. Asymmetric moderate FDG uptake in the skeletal muscles of the left rotator cuff is favored to be physiologic/inflammatory. Tracer uptake elsewhere is physiologic. Non-PET findings: Postradiation changes in the bilateral anterior lungs. Mitral annular calcifications. Coronary artery calcifications. Atherosclerotic calcifications of the thoracic and abdominal aorta. Aortic valve leaflet calcifications. Bilateral axillary dissection clips. Sequela of granulomatous disease. Absent spleen. Cholelithiasis. Multilevel degenerative changes in the spine. IMPRESSION: 1. Bilateral mastectomies. Asymmetric mild FDG uptake in skeletal muscles of the left chest wall is favored to represent post radiation inflammatory changes. No evidence of FDG avid locally recurrent neoplasm in the chest wall. 2. No evidence of FDG avid tony or distant metastatic disease. 3. No other evidence of FDG avid malignancy. Dictated by Jarrod Pratt MD @ 02/02/2025 10:03:21 AM (Electronically Signed)
== END 2025-01-30 07:17 | disposition home or self-care (01) ==
LOC: RAD 07:17
PROVIDERS: PCP Internal Medicine; Visit Provider Internal Medicine Hematology & Oncology
DX: C50.412 Malignant neoplasm of upper-outer quadrant of left female breast (principal)
CPT/HCPCS: 78815; A9552